=== PATIENT | female | born 1960 | race Hispanic/Latino ===

== ENCOUNTER 2016-10-02 23:10 | Inpatient (IN) | payer MEDICAID ==
[~2016-10-02] VITALS: Ht 162.6 cm; Wt 49.5 kg
[2016-10-02 23:14] VITALS: BP 119/73; PULSE 130; RESP 22; O2SAT 97
--- NOTE | 2016-10-02 23:45 | ED.REPORT ---
HPI-Abd Pain F 40 and Over Date of Service October 02, 2016 ED Provider: Jef Huynh MD 56 year old Divehi-speaking, developmentally delayed female with a history of dementia presents to the ER accompanied by her daughters due to abdominal pain. Daughter reports that the patient complained of abdominal discomfort today, but she reports that the patient has had decreased appetite over the past 4 days. She denies fever, dysuria, nausea, and vomiting. It is difficult to obtain any history from the patient due to underlying developmental delay and dementia. Nursing Notes Stated Complaint: RIGHT SIDE ABD PAIN Chief Complaint: Female Abdominal Pain Nursing Notes Reviewed: Yes Allergies: Coded Allergies: No Known Allergies (Unverified , 10/02/16) No Active Prescriptions or Reported Meds General Time Seen by MD: 23:44 Chief Complaint Abdominal pain Hx Obtained From: Daughter Arrived By: Walk-in Sudden in Onset?: No Onset Occurred: 9 - 12 hours ago Symptom Duration: Since onset Past Medical History Past Medical History Developmental delay Dementia Smoking History Unknown if Ever Smoker Social History Other Social History: Good social support Review of Systems Unable to Obtain ROS Mental status Physical Exam Vital Signs Vital Signs (First) Date Time Temp Pulse Resp B/P Pulse Ox O2 Delivery O2 Flow Rate FiO2 10/02/16 23:14 38.8 130 22 119/73 97 Room Air Initial VS: Reviewed Head / Eyes: Atraumatic, Normocephalic Neck: Supple, Non-tender, Full range of motion Extremities: Vascular intact, Neuro intact, No swelling, No tenderness Skin: Warm, Dry, No cyanosis General/Constitutional: Awake, Alert Appearance / Presentation: Positive: Hygiene poor Respiratory / Chest: Breath sounds NL, Breath sounds = bilat, No respiratory distress, No rales, No rhonchi, No wheezing, No stridor Cardiovascular: Heart rate NL, Regular rhythm, Heart sounds NL, Peripheral circulation NL Abdomen: Soft, No guarding, No rebound, No distention Tenderness/Guarding/Rebound: Positive: Tender diffuse Back: Inspection NL, Non-tender, No CVA tenderness ENT: Airway patent Mouth: Positive: Mucous membranes dry Poor oral hygiene. Interpretation & Diagnostics Lab Results Interpretation Result Diagram: 10/03/16 0447 10/02/16 0010 Test 10/02/16 00:10 10/03/16 00:10 10/03/16 01:50 Prothrombin Time 11.8sec (8.1-12.5) Prothromb Time International Ratio 1.10ratio Lactic Acid Level 1.5mmol/L (0.4-2.0) Magnesium Level 2.0mg/dL (1.6-2.6) Lipase 40U/L (13-60) Activated Partial Thromboplast Time 30.8sec (22.8-33.0) Iron Level 8ug/dL (35-150) Total Iron Binding Capacity ug/dL (250-450) Percent Iron Saturation 32%sat (15-50) Unsaturated Iron Binding < 16.8ug/dL Urine Color Yellow (YELLOW) Urine Appearance Clear (CLEAR,HAZY) Urine pH 7.0 (5.0-8.0) Urine Specific [place] 1.028 (1.003-1.035) Urine Protein Negativemg/dL (NEG,TRACE) Urine Glucose (UA) Negativemg/dL (NEGATIVE) Urine Ketones Negativemg/dL (NEGATIVE) Urine Occult Blood Moderate (NEGATIVE) Urine Nitrite Negative (NEGATIVE) Urine Bilirubin Negative (NEGATIVE) Urine Urobilinogen 2.0mg/dL (NORMAL) Urine Leukocyte Esterase Negative (NEGATIVE) Urine RBC 11-50/hpf (0-2) Urine WBC 0-5/hpf (0-5) Urine Epithelial Cells Moderate/hpf (NONE-MOD) Urine Crystals None seen (NONE SEEN) Urine Bacteria Few/hpf (NONE-FEW) Urine Hyaline Casts None/lpf (NONE) Urine Granular Casts None seen (NONE SEEN) Urine Waxy Casts None seen (NONE SEEN) Urine Red Blood Cell Casts None seen (NONE SEEN) Urine White Blood Cell Casts None seen (NONE SEEN) Urine Mucus None seen (None Seen) Urine Trichomonas None seen (NONE SEEN) Urine Yeast None (NONE SEEN) Urinalysis Comment None Urine Culture Reflexed Not indicated X-Ray Chest Interpretation Chest Xray Interpretation: Atelectasis versus pneumonia at the right lung base. View: Portable, 1 view Interpretation / Wet Read by: Wet read ED physician CT Abd / Pelvis Interpretation CONCLUSION: Large, heterogeneous liver mass that extends to the capsule. Crescentic shaped fluid and air collection in the subhepatic space along the right lateral abdominal wall may reflect a ruptured intrahepatic mass or abscess; cannot entirely exclude abscess from tip appendicitis, though this is felt less likely. Distended urinary bladder with pelvocaliectasis bilaterally. Severe fecal loading of the colon. Possible right lower lobe pneumonia. Electronically signed by Paris Thurman MD Study type: Abdominal CT IV contrast Interpretation / Wet Read by: Interpret - Radiologist Re-Eval/Medical Decision Med Decision/Clinical Course 56-year-old with lifelong developmental delay, presents with decreased appetite and right quadrant and right flank pain. CT reveals a large complex cystic mass which may be abscess ruptured out into the peritoneum, and maybe tumor likewise ruptured. The inferior most area of fluid collection cannot be from the tip of the retrocecal appendix, which does have a appendicolith. It is less likely but not impossible that her retrocecal appendicitis resulted in a tracking abscess. She has atelectasis in the right base versus pneumonia. She is markedly tachycardic, moderately dry appearing, with a mild elevation of her white count. Begun with Zosyn and vancomycin, and admitted to the medicine service, with consultation to surgery and interventional radiology planned for tomorrow Source of Hx: Old records Re-Evaluation/Progress : Time of Eval: 03:03 Re-Evaluation/Progress Note: Discussed lab and imaging results and need for admission. Family is amenable to the plan. All other questions addressed. Consultation #1: Consulted With: On-call physician (Radiology) Call Returned at: 01:39 Note: Radiology called to discuss CT results. Consultation #2: Referral / Consult Name: Lurdes Stuart DO Consulted With: Hospitalist Call Returned at: 02:52 Vascular Nurse: Agrees with eval, Agrees with plan, Accepts admit Counseled Regarding: Diagnosis, Lab results, Need for admission Discharge & Departure Primary Impression: Sepsis Additional Impression: Liver abscess Disposition: ADMITTED TO HOSPITAL Discharge Condition All VS Reviewed: Yes Condition: Stable Referrals: NOPCP (PCP) Scribe Attestation Portions of this note were transcribed by Brad Melchor. I, Dr. Huynh, personally performed the history, physical exam and medical decision-making; I reviewed and confirmed the accuracy of the information in the transcribed note. Signed by: Sol Whitley, 10/03/2016 at 04:25 Jef Huynh MD October 02, 2016 23:45 BRAD MELCHOR October 02, 2016 23:50 Few/hpf (NONE-FEW) Urine Hyaline Casts None/lpf (NONE) Urine Granular Casts None seen (NONE SEEN) Urine Waxy Casts None seen (NONE SEEN) Urine Red Blood Cell Casts None seen (NONE SEEN) Urine White Blood Cell Casts None seen (NONE SEEN) Urine Mucus None seen (None Seen) Urine Trichomonas None seen (NONE SEEN) Urine Yeast None (NONE SEEN) Urinalysis Comment None Urine Culture Reflexed Not indicated X-Ray Chest Interpretation Chest Xray Interpretation: Atelectasis versus pneumonia at the right lung base. View: Portable, 1 view Interpretation / Wet Read by: Wet read ED physician CT Abd / Pelvis Interpretation CONCLUSION: Large, heterogeneous liver mass that extends to the capsule. Crescentic shaped fluid and air collection in the subhepatic space along the right lateral abdominal wall may reflect a ruptured intrahepatic mass or abscess; cannot entirely exclude abscess from tip appendicitis, though this is felt less likely. Distended urinary bladder with pelvocaliectasis bilaterally. Severe fecal loading of the colon. Possible right lower lobe pneumonia. Electronically signed by Paris Thurman MD Study type: Abdominal CT IV contrast Interpretation / Wet Read by: Interpret - Radiologist Re-Eval/Medical Decision Source of Hx: Old records Re-Evaluation/Progress : Time of Eval: 03:03 Re-Evaluation/Progress Note: Discussed lab and imaging results and need for admission. Family is amenable to the plan. All other questions addressed. Consultation #1: Consulted With: On-call physician (Radiology) Call Returned at: 01:39 Note: Radiology called to discuss CT results. Consultation #2: Referral / Consult Name: Lurdes Stuart Consulted With: Hospitalist Call Returned at: 02:52 Vascular Nurse: Agrees with eval, Agrees with plan, Accepts admit Counseled Regarding: Diagnosis, Lab results, Need for admission Discharge & Departure Primary Impression: Sepsis Additional Impression: Liver abscess Disposition: ADMITTED TO HOSPITAL Discharge Condition All VS Reviewed: Yes Condition: Stable Referrals: NOPCP (PCP) Jiibtia Attestation Portions of this note were transcribed by Brad Melchor. I, Dr. Huynh, personally performed the history, physical exam and medical decision-making; I reviewed and confirmed the accuracy of the information in the transcribed note. Signed by: Sol Whitley, 10/03/2016 at 04:25 Jef Huynh MD October 02, 2016 23:45 BRAD MELCHOR October 02, 2016 23:50
[2016-10-02] MEDS ORDERED: 0.9% Sodium Chloride 1,000 ML IV ONE (23:49)
[2016-10-02] MEDS ORDERED: Pantoprazole 4 mg/mL 10 mL Inj IVPUSH ONE (23:50)
[2016-10-02] MEDS ORDERED: Ketorolac 15 mg/mL Inj IVPUSH ONE (23:50)
[2016-10-02] MEDS ORDERED: Ondansetron 2 mg/mL 2 mL Inj IVPUSH ONE (23:50)
[2016-10-03] VITALS (10 sets, daily range): BP systolic 100–116; BP diastolic 65–73; PULSE 100–116; RESP 19–31; O2SAT 93–98
[2016-10-03 00:25] LABS: BASOPHILS % (AUTO) 0.3 % (0-3); EOSINOPHILS % (AUTO) 0.2 % (0-5); MONOCYTES % (AUTO) 7.8 % (4-12); Mean Corpuscular Volume 78.7 fL (81-100); NEUTROPHILS % (AUTO) 77.1 % (40-74)
[2016-10-03] MEDS: fentaNYL-PF 50 mCg/mL 2 mL Inj IVPUSH PRN ×2 (00:28→22:51)
[2016-10-03 00:41] LABS: Platelet Count 397 bil/L (150-400)
[2016-10-03 00:53] LABS: INR 1.1 ratio
[2016-10-03] MEDS ORDERED: 0.9% Sodium Chloride 1,000 ML IV ONE (01:00)
[2016-10-03 02:15] LABS: APPEARANCE,URINE CLEAR (CLEAR,HAZY); COLOR,URINE YELLOW (YELLOW); OCCULT BLOOD,URINE MODERATE (NEGATIVE)
[2016-10-03] MEDS ORDERED: Piperacillin-Tazo 3.375 Gm Inj 3.375 GM in Dextrose 5% Minibag Plus 50 ML IV ONE (02:55)
[2016-10-03] MEDS ORDERED: Vancomycin Inj 1,000 MG in IV Premix 1 EACH IV ONE (02:55)
[2016-10-03] MEDS ORDERED: 0.9% Sodium Chloride 1,000 ML IV SCH (03:21)
[2016-10-03] MEDS ORDERED: Polyethylene Glycol (PEG) 17 Gm Powder PO PRN (03:25)
[2016-10-03] MEDS ORDERED: Alum-Mag Hydrox-Simeth 30 mL Suspension PO PRN (03:25)
--- NOTE | 2016-10-03 03:40 | PCM.HPMED ---
Subjective Date of Service October 03, 2016 Primary Provider: Admitting Physician: Lurdes Stuart DO Primary Care Physician: Sergio Attending Physician: Lurdes Stuart DO Admit Status: From the Emergency Department Chief Complaint: Abdominal pain History of Present Illness: Tiny Hill is a 56 year old developmentally delayed woman with early onset dementia who is minimally verbal in Irish who presents with a 4 day history of increasing abdominal pain and anorexia. The history is obtained from family members in the room who are her primary care givers. The relate that 4 days ago the patient began to manifest decreased appetite and fatigue with complaints of mild abdominal pain. Other members of the family had been suffering from a diarrheal illness so her family did not seek evaluation until today when the patient complained of acutely worsening abdominal pain. The patient denies nausea, changes in bowel or bladder habits, or vomiting. She endorses diffuse abdominal pain most acute in the RUQ and suprapubic region. In the ED the patient was febrile upon presentation with a temp of 38.8, leukocytosis at 14.8 with neutrophil predominance, with mildly elevated ALT and Alk Phos. CT imaging revealed a hypodense region in the right inferior hepatic lobe consistent with either abscess, drained abscess, or malignancy, also noted was a grossly distended bladder; the patient was placed on Vanco and Zosyn given IVF and a Sharma cath was placed. Review of Systems: Comprehensive ROS negative except as outlined above in the HPI Allergies Coded Allergies: No Known Allergies (Unverified , 10/02/16) Home Medications None PMH Developmental Delay Dementia Surgical History None Family History DM2 and HTN is multiple relatives Social History Hx Alcohol Use: No Hx Substance Use: No Smoking Status: Unknown if Ever Smoker Exam Vital Signs Vital Sign - Last Date Time Temp Pulse Resp B/P Pulse Ox O2 Delivery O2 Flow Rate FiO2 10/02/16 23:14 38.8 130 22 119/73 97 Room Air Intake and Output 10/02/16 10/02/16 10/03/16 Cumulative From/Thru 15:00 23:00 07:00 10/02/16 23:14 - 10/03/16 01:41 Intake Total 2000 ml 2000 ml Balance 2000 ml 2000 ml Intake IV Total 2000 ml 2000 ml Exam Gen: difficult to asses A/O as patient is essentially non verbal, slightly disheveled female appearing older than stated age Neck: Supple, no JVD, full ROM HEENT: mucous membranes dry, PERRL, EOMI, no scleral icterus, no conjunctival pallor CV: RRR, no murmurs rubs or gallops Resp: Lung CTA BL, no wheezing rales or rhonchi Abd: Diffusely tender to palpation most acutely in RUQ and supra-pubic region, BS+ 4Q, no organomegaly, no rebound masses or guarding Extr: No cyanosis clubbing or edema Neuro: CN 2-12 grossly intact, no focal neurologic deficit Psych: Patient very stoic with minimal visible pain reaction, minimally verbal with single word difficult to comprehend utterances to family Lab and Diagnostics Labs Item Value Date Time Red Blood Count 2.96 mil/mm3 L 10/02/169 Neutrophils (%) (Auto) 77.1 % H 10/02/169 Monocytes (%) (Auto) 7.8 % 10/02/169 Lymphocytes (%) (Auto) 13.9 % L 10/02/169 Eosinophils (%) (Auto) 0.2 % 10/02/169 Basophils (%) (Auto) 0.3 % 10/02/169 Estimat Glomerular Filtration Rate 297 mL/min 10/02/169 Lactic Acid Level 1.5 mmol/L 10/02/169 Calcium Level 8.3 mg/dL L 10/02/169 Magnesium Level 2.0 mg/dL 10/02/169 Total Bilirubin 0.3 mg/dL 10/02/169 Aspartate Amino Transf (AST/SGOT) 46 U/L 10/02/169 Alanine Aminotransferase (ALT/SGPT) 36 U/L H 10/02/169 Alkaline Phosphatase 250 U/L H 10/02/169 Total Protein 8.1 g/dL 10/02/169 Albumin 2.7 g/dL L 10/02/169 Lipase 40 U/L 10/02/169 Prothrombin Time 11.8 sec 10/02/169 Prothromb Time International Ratio 1.10 ratio 10/02/169 Activated Partial Thromboplast Time 30.8 sec 10/03/169 Result Diagram: 10/02/16910/02/169 Microbiology Blood cultures pending X-Rays, CTs and MRIs CT abdomen Pelvis: Official report pending [place] Read: Large Heterogeneous liver mass that extends to the capsule. Crescentic shaped fluid and air collection in the subhepatic space along the right lateral abdominal wall may reflect ruptured intrahepatic mass or abscess; cannot entirely exclude abscess from tip appendicitis, though this is felt less likely. Distended urinary bladder with pelvocaliectasis bilaterally. Severe fecal loading of the colon. Possible right lower lobe pneumonia. Chest Xray portable Personal Read: Patient rotated right, trachea midline, poor inspiratory effort on film, RLL consolidation vs atelectasis, loop of fecal loaded bowel extending under left subdiaphragmatic region. Please correlate clinically Assessment & Plan Tiny Hill is a 56 year old developmentally delayed minimally verbal Irish speaking female who presents with a 4 day history of anorexia with increasing abdominal pain. CT imaging in the ED reveals likely hepatic abscess with concurrent fever, leukocytosis, and Tachycardia. 1. Sepsis, POA, acute. Active -Leukocytosis as 14.8 with neutrophilic predominance, Temperature 38.8 upon presentation with HR 130, Likely source Hepatic abscess and or RLL pneumonia -Vanco per pharmacy and Zosyn 3.375g q8 -NS @ 125/hr -Repeat CBC in the AM 2. Hepatic Mass, POA, acute. Active -Likely abscess -Abx as above -IVF as above -Dilaudid 0.5 mg IV Q4 for pain control -Infectious disease consulted to establish antibiotic regimen and determine if patient would benefit from biopsy and surgical drainage of suspected abscess 3. Developmental Delay, POA, chronic. Active -Patient minimally verbal in Irish -Consent should be obtained from family for all necessary procedures(phone number posted on board) -Patient is very stoic and minimally verbal so PRN pain meds should be offered Q4 4. Microcytic anemia, POA, chronicity unknown. Active -H/H 7.4/23.3 -Typed and crossed -Consider transfusion for Hg < 7 -Stool Guaiac ordered -Consider GI consult to identify source of possible bleed 5. Hyperglycemia, POA, chronicity unknown. Active -HA1c pending -Lispro low dose correctional scale 6. Large stool burden, POA, chronicity unknown. Active -Bowel prophylaxis with Senna and Miralax -Consider Dulcolax suppository if no BM in 24 hrs Code Status: FULL CODE Disposition: Inpatient, anticipated length of stay >2 midnights due to severity of condition and complexity of treatment plan. Pain Evaluation: Adequate Pain Control GI Prophylaxis: H2 joshua VTE Prophylaxis: Sub-Q Enoxaparin Resuscitation Status: CPR: Attempt Resuscitation Attending Statement The patient was seen and examined together with house staff on 10/03/2016 and I agree with the history, exam and plan as outlined in the note above. Magan Muhammad DO October 03, 2016 03:40 Lurdes Stuart DO October 03, 2016 06:37
--- NOTE | 2016-10-03 04:00 | NUR ---
Pt arrived to room 2023 Accompanied by 2 adult nieces. Pt has lost her mother recently, with whom she lived with and whom took care of her up until she passed. Pt says one or two words at a time and only in Kazakh. Pt is very compliant with staff. Pt is developmentally delayed and has dementia, she also has poor self care.
[2016-10-03] MEDS ORDERED: Glucose 40% Oral Gel 15 Gm Tube PO PRN (04:10)
[2016-10-03] MEDS ORDERED: Dextrose 10% 250 ML IV ONE (04:10)
[2016-10-03] MEDS ORDERED: Vancomycin Dose per Pharmacist XX SCH (04:29)
--- NOTE | 2016-10-03 04:35 | PCM.CONPHA ---
Subjective Date of Service: October 03, 2016 Abdominal pain Reason for Pharmacy Consult: Vancomycin Dosing Objective Vital Signs Date Time Temp Pulse Resp B/P Pulse Ox O2 Delivery O2 Flow Rate FiO2 10/03/16 04:06 37.3 105 31 102/65 95 Room Air 10/03/16 04:00 36.6 108 19 106/73 98 Room Air 10/02/16 23:14 38.8 130 22 119/73 97 Room Air Weight (Kilograms): 52.300 Height (Feet): 5 Height (Inches): 4.00 Test 10/02/16 00:10 10/03/16 00:10 10/03/16 01:50 White Blood Count 14.8th/mm3 (3.8-10.1) Red Blood Count 2.96mil/mm3 (3.90-5.20) Hemoglobin 7.4g/dL (12.0-15.6) Hematocrit 23.3% (35.0-46.0) Mean Corpuscular Volume 78.7fL (81-100) Mean Corpuscular Hemoglobin 25.0pg (27.0-35.0) Mean Corpuscular Hemoglobin Concent 31.8% (32.0-37.0) Red Cell Distribution Width 15.5% (12.3-15.4) Platelet Count 397bil/L (150-400) Neutrophils (%) (Auto) 77.1% (40-74) Lymphocytes (%) (Auto) 13.9% (14-46) Monocytes (%) (Auto) 7.8% (4-12) Eosinophils (%) (Auto) 0.2% (0-5) Basophils (%) (Auto) 0.3% (0-3) Prothrombin Time 11.8sec (8.1-12.5) Prothromb Time International Ratio 1.10ratio Sodium Level 130mEq/L (134-144) Potassium Level 4.0mEq/L (3.5-5.2) Chloride Level 94mEq/L (97-108) Carbon Dioxide Level 20mmol/L (18-29) Blood Urea Nitrogen 8mg/dL (6-24) Creatinine 0.33mg/dL (0.57-1.00) Estimat Glomerular Filtration Rate 297mL/min (>59) Glucose Level 126mg/dL (60-99) Lactic Acid Level 1.5mmol/L (0.4-2.0) Calcium Level 8.3mg/dL (8.5-10.1) Magnesium Level 2.0mg/dL (1.6-2.6) Total Bilirubin 0.3mg/dL (0.0-1.2) Aspartate Amino Transf (AST/SGOT) 46U/L (0-50) Alanine Aminotransferase (ALT/SGPT) 36U/L (0-32) Alkaline Phosphatase 250U/L (25-150) Total Protein 8.1g/dL (6.4-8.4) Albumin 2.7g/dL (3.4-5.0) Lipase 40U/L (13-60) Activated Partial Thromboplast Time 30.8sec (22.8-33.0) Urine Color Yellow (YELLOW) Urine Appearance Clear (CLEAR,HAZY) Urine pH 7.0 (5.0-8.0) Urine Specific [place] 1.028 (1.003-1.035) Urine Protein Negativemg/dL (NEG,TRACE) Urine Glucose (UA) Negativemg/dL (NEGATIVE) Urine Ketones Negativemg/dL (NEGATIVE) Urine Occult Blood Moderate (NEGATIVE) Urine Nitrite Negative (NEGATIVE) Urine Bilirubin Negative (NEGATIVE) Urine Urobilinogen 2.0mg/dL (NORMAL) Urine Leukocyte Esterase Negative (NEGATIVE) Urine RBC 11-50/hpf (0-2) Urine WBC 0-5/hpf (0-5) Urine Epithelial Cells Moderate/hpf (NONE-MOD) Urine Crystals None seen (NONE SEEN) Urine Bacteria Few/hpf (NONE-FEW) Urine Hyaline Casts None/lpf (NONE) Urine Granular Casts None seen (NONE SEEN) Urine Waxy Casts None seen (NONE SEEN) Urine Red Blood Cell Casts None seen (NONE SEEN) Urine White Blood Cell Casts None seen (NONE SEEN) Urine Mucus None seen (None Seen) Urine Trichomonas None seen (NONE SEEN) Urine Yeast None (NONE SEEN) Urinalysis Comment None Urine Culture Reflexed Not indicated Assessment/Plan Assessment/Plan Vancomycin dosing per pharmacy Indication: liver abscess Goal vancomycin trough: 15-20 Pertinent info: - Also being treated with Zosyn - SCr: 0.33 - WBC: 14.8 - Received loading dose of vancomycin 1000 mg in ED. Maintenance dose: vancomycin 750 mg Q6H starting at 0730. Vancomycin trough has been scheduled for 10/03 @1900 prior to 4th dose. Pharmacy to continue to monitor and dose vancomycin daily. Thank you, Susannah Shaw Pharmacist. Susannah Shaw October 03, 2016 04:35
[2016-10-03] MEDS: 0.9% Sodium Chloride 1,000 ML IV SCH ×3 (04:47→20:25)
[2016-10-03 04:52] LABS: Unsaturated Iron Binding < 16.8 ug/dL
[2016-10-03 05:23] LABS: Mean Corpuscular Hemoglobin 24.9 pg (27.0-35.0); Mean Corpuscular Volume 79.6 fL (81-100); Platelet Count 326 bil/L (150-400)
[2016-10-03 05:40] LABS: BASOPHILS % (AUTO) 0.2 % (0-3); EOSINOPHILS % (AUTO) 0.1 % (0-5); MONOCYTES % (AUTO) 10.1 % (4-12); NEUTROPHILS % (AUTO) 75.6 % (40-74)
[2016-10-03] MEDS ORDERED: Vancomycin Inj 750 MG in 0.9% Sodium Chloride 250 ML IV SCH (07:30)
[2016-10-03] MEDS: Insulin LISPRO 300 Unit/3 mL Inj SUBQ SCH ×4 (08:00→21:55)
[2016-10-03] MEDS: Sodium Chloride LOK Flush 10 mL Syringe IVFLUSH SCH ×4 (08:30→16:30)
--- NOTE | 2016-10-03 08:55 | DRSVH ---
PROCEDURE: CT ABDOMEN AND PELVIS WITH CONTRAST ([id number]) INDICATIONS: rt flank and abdo pain TECHNIQUE: After the administration of intravenous contrast, 5 mm thick sections acquired from the diaphragm to the symphysis. 5 mm coronal and sagittal reformats were acquired. For radiation dose reduction, the following was used: automated exposure control, adjustment of mA and/or kV according to patient siz e. COMPARISON: None. FINDINGS: Preliminary report by manager shift radiology Image quality: Excellent. ABDOMEN: Lung bases: Focal area of atelectasis/infiltrate is present in the right lower lobe, nonspecific but suspect for pneumonia. Heart size is normal. Solid organs: Liver and spleen are normal in size. In the posterior right lobe of liver is a large, multiloculated hypodense mass that measures approximately 5.8 x 10.6 cm in diameter and 10 cm in cran iocaudal dimension. There is very slight rim enhancement relative to normal liver. At the inferior ti p of the right lobe there is a subcapsular air-fluid collection that could represent abscess. This me asures approximately 1.2 cm in thickness and 9.7 cm AP. This collection is also adjacent to the fundu s of the gallbladder which otherwise appears normal. This collection also is present at the tip of th e appendix which does contain an appendicolith and measures 9 mm in diameter with surrounding fat str anding, of concern for acute appendicitis with rupture at the tip. Biliary system is non dilated. Pancreas enhances normally. No adrenal nodules. Kidneys demonstrate normal size and enhancement, without hydronephrosis. Peritoneum and bowel: Bowel loops demonstrate normal wall thickness and caliber. Considerable fecal material within the proximal colon. No free fluid or air. Nodes and vessels: No retroperitoneal or mesenteric adenopathy by size criteria. Aorta and inferior vena cava are normal in size. Miscellaneous: No ventral hernias. PELVIS: Genitourinary: Bladder is distended and wall thickness is normal. Uterus appears normal, located to the left of midline. No adnexal abnormalities. No free fluid. Miscellaneous: No inguinal hernias or adenopathy. Bones: No suspicious bony lesions. No vertebral body compression fractures. IMPRESSION: 1. Large intrahepatic, predominantly cystic mass is nonspecific. Primary or metastatic neoplasm canno t be excluded however benign infectious or inflammatory process would appear more likely. Followup no nemergent CT of the abdomen with liver protocol suggested. 2. Probable crescentic abscess in the right upper quadrant inferior to the liver and likely related t o ruptured acute appendicitis. Fluid collection secondary to extension of the liver lesions through t he hepatic capsule is considered but would not explain the air fluid level within the collection. 3. No lymphadenopathy, bowel obstruction or free intraperitoneal air. 4. Focal atelectasis in the right lower lobe may be reactive to underlying inflammatory process or sp linting from pain but possibility of pneumonia/aspiration is not excluded, clinical/laboratory correl ation needed. Findings correlate with the preliminary report although probability of small abscess is felt more lik malini to be secondary to acute appendicitis with rupture. Dictated by: Napoleon Beck M.D. on 10/03/2016 at 8:29 Approved by: Napoleon Beck M.D. on 10/03/2016 at 8:53
[2016-10-03] MEDS: Polyethylene Glycol (PEG) 17 Gm Powder PO SCH (08:59)
--- NOTE | 2016-10-03 09:45 | DRSVH ---
PROCEDURE: X-RAY CHEST ONE VIEW, PORTABLE ([id number]) INDICATIONS: abdo pain TECHNIQUE: One view of the chest was acquired. COMPARISON: [facility], CT, CT ABD PELVIS W CON, 10/03/2016, 1:11. FINDINGS: Surgical changes and devices: None. Lungs and pleura: No pleural effusions or pneumothorax. Elevation the right hemidiaphragm. Airspac e opacity overlies the right lung base likely atelectasis. Liver appears enlarged. Mediastinum: Mediastinal contours appear normal. Heart size is normal. Bones and chest wall: No suspicious bony lesions. Overlying soft tissues appear unremarkable. IMPRESSION: 1. Chronic elevation of the right hemidiaphragm with probable atelectasis overlying the right lung ba se. Dictated by: Denis JUAREZ Interpreted: Gabriel Beck MD on 10/03/2016 at 9:43 Transcribed by: MANOLO on 10/03/2016 at 9:45 Approved by: Napoleon Beck M.D. on 10/03/2016 at 10:50
[2016-10-03] MEDS: Piperacillin-Tazo 3.375 Gm Inj 3.375 GM in Dextrose 5% Minibag Plus 50 ML IV SCH ×2 (10:30→17:59)
--- NOTE | 2016-10-03 11:00 | NUR ---
Social Work: Initial Assessment D: Per EMR review, pt is a 56 year old female admitted for Liver Abscess. Pt is Self Pay insurance. Pt does not have a PCP. NOK is Melodie Marvin, pt's cousin ([phone] and [phone]). Advanced directives not completed- info provided to pt and family. No readmit score entered. [employer] met with pt and cousin at bedside to discuss dcp with the assistance of an per diem interpreter. Sw role explained. Pt is lives in [place] with her Cousin, Melodie, who is her current power press operator. Pt is developmentally disabled and requires supervision and assistance with ADLs. Pt is I with ambulation and uses no DME. Pt was previously cared for by her mother who recently . Pt and family confirm that pt does not have any insurance. [employer] [facility] Application provided by [employer]. Family anticipates taking pt home when medically stable; they express no concerns about discharge. Pt discussed in am rounds. Infectious Disease has been consulted. A: Pt who is developmentally delayed and lives with family who provides care. P: Anticipate pt to discharge home when medically stable; [employer] to continue to follow ADEEL Mcclain
--- NOTE | 2016-10-03 12:11 | NUR ---
HEART RATE P- Patient has HR ST 100-120 and at 0945 has run on 17 beats V-tack per retail maintenance technician. Patient denies chest pain and appears asymptomatic. I- MD made aware, piano mechanic apprentice and family present and family requesting time think on code status. E- Will continue to monitor and check with youth nutritional monitor.
--- NOTE | 2016-10-03 18:19 | PCM.PNMED ---
Subjective Date of Service October 03, 2016 Subjective Reason 56-year-old developmentally delayed woman with early onset dementia, minimally verbal, Gabonese-speaking only, with a four-day history of increasing abdominal pain and anorexia. History obtained from family members who are her caregivers.In the ED the patient was febrile upon presentation with a temp of 38.8, leukocytosis at 14.8 with neutrophil predominance, with mildly elevated ALT and Alk Phos. CT imaging revealed a hypodense region in the right inferior hepatic lobe consistent with either abscess, drained abscess, or malignancy, also noted was a grossly distended bladder. Today the patient does report pain and points to an area in the mid lower abdomen. Exam Vital Signs Vital Sign - Last Date Time Temp Pulse Resp B/P Pulse Ox O2 Delivery O2 Flow Rate FiO2 10/03/16 16:18 37.9 112 24 116/65 96 Room Air Intake and Output 10/02/16 10/02/16 10/03/16 Cumulative From/Thru 15:00 23:00 07:00 10/02/16 23:14 - 10/03/16 04:22 Intake Total 2000 ml 2000 ml Output Total 1200 ml 1200 ml Balance 800 ml 800 ml Intake IV Total 2000 ml 2000 ml Output Urine Total 1200 ml 1200 ml Exam Gen: Patient does not know her own name, but does know she is in the hospital, slightly disheveled female appearing older than stated age Neck: Supple, no JVD, full ROM HEENT: mucous membranes dry, EOMI, no scleral icterus, no conjunctival pallor CV: RRR, no murmurs rubs or gallops Resp: Lung CTA BL, no wheezing rales or rhonchi Abd: Diffusely tender to palpation most acutely in RUQ and supra-pubic region, BS+ 4Q, no organomegaly, no rebound masses or guarding Extr: No cyanosis clubbing or edema Neuro: CN 2-12 grossly intact, no focal neurologic deficit Psych: Patient very stoic with minimal visible pain reaction, minimally verbal with single word difficult to comprehend utterances to family IVs and Medications IV Fluids Normal saline at 125 mils per hour IV Medications Reviewed: Medications were reviewed in detail Lab and Diagnostics Result Diagram: 10/03/16 0447 10/03/16446 Microbiology Blood cultures pending X-Rays, CTs and MRIs CT abdomen Pelvis: Official report pending Night Jak Read: Large Heterogeneous liver mass that extends to the capsule. Crescentic shaped fluid and air collection in the subhepatic space along the right lateral abdominal wall may reflect ruptured intrahepatic mass or abscess; cannot entirely exclude abscess from tip appendicitis, though this is felt less likely. Distended urinary bladder with pelvocaliectasis bilaterally. Severe fecal loading of the colon. Possible right lower lobe pneumonia. Chest Xray portable Personal Read: Patient rotated right, trachea midline, poor inspiratory effort on film, RLL consolidation vs atelectasis, loop of fecal loaded bowel extending under left subdiaphragmatic region. Please correlate clinically Assessment & Plan Tiny Hill is a 56 year old developmentally delayed minimally verbal Gabonese speaking female who presents with a 4 day history of anorexia with increasing abdominal pain. CT imaging in the ED reveals likely hepatic abscess with concurrent fever, leukocytosis, and Tachycardia. 1. Sepsis, POA, acute. Active -Leukocytosis as 14.8 with neutrophilic predominance, Temperature 38.8 upon presentation with HR 130, Likely source Hepatic abscess and or RLL pneumonia -Vanco per pharmacy and Zosyn 3.375g q8 -NS @ 125/hr -Repeat CBC in the AM reveals improvement but still elevated white blood cells 12.4 -Temperature within normal limits all day, rising to 37.9 in the late afternoon 2. Hepatic Mass, POA, acute. Active -Likely abscess -Abx as above -IVF as above -Dilaudid 0.5 mg IV Q4 for pain control -Infectious disease consulted to establish antibiotic regimen and determine if patient would benefit from biopsy and surgical drainage of suspected abscess 3. Developmental Delay, POA, chronic. Active -Patient minimally verbal in Gabonese -Consent should be obtained from family for all necessary procedures(phone number posted on board) -Patient is very stoic and minimally verbal so PRN pain meds will be offered Q4 4. Microcytic anemia, POA, chronicity unknown. Active -Likely anemia of chronic disease with high ferritin and low iron stores. It is possible that this liver infection has been following a long indolent course -H/H 7.4/23.3 -Repeat evening H/H pending -Typed and crossed -Consider transfusion for Hg < 7 -Stool Guaiac ordered -Consider GI consult to identify source of possible bleed 5. Hyperglycemia, POA, chronicity unknown. Active -HA1c pending -Lispro low dose correctional scale 6. Large stool burden, POA, chronicity unknown. Active -Bowel prophylaxis with Senna and Miralax -Consider Dulcolax suppository if no BM in 24 hrs Code Status: FULL CODE, but after discussion with cousins who are caregivers describing the options they are going to have a conversation with Tiny and tell us tomorrow if they are going to change that CODE STATUS. Tiny voiced wanting to be allowed to pass naturally. Disposition: Inpatient, anticipated length of stay >2 midnights due to severity of condition and complexity of treatment plan. Pain Evaluation: Adequate Pain Control GI Prophylaxis: H2 joshua VTE Prophylaxis: Sub-Q Enoxaparin VTE Mechanical Devices: Venous Foot Pump Resuscitation Status: CPR: Attempt Resuscitation Attending Statement The patient was seen and examined together with Resident/House-staff on 10/03/16 and I agree with the history, exam and plan as outlined in the note above. Kolton Guillen DO October 03, 2016 18:19 Kevin Khan October 17, 2016 17:25
[2016-10-03] MEDS: Ondansetron 2 mg/mL 2 mL Inj IVPUSH PRN ×2 (18:41→22:51)
[2016-10-03] MEDS ORDERED: Vancomycin Serum Trough XX ONE (19:00)
--- NOTE | 2016-10-03 20:36 | CONS ---
[address] [address] CONSULTATION REPORT PATIENT: PAT ZHU : 1960 MR#: [id number] ADMIT: 10/03/2016 JOB ID: [id number] DATE OF SERVICE: 10/03/[address] Muhammad for this timely consult. REASON FOR CONSULTATION: Possible liver abscess, ruptured appendicitis or other right-sided abdominal infectious process. HISTORY OF PRESENT ILLNESS: The patient is a 56-year-old, developmentally delayed Hungarian borne woman who resides with family in the local area. She apparently has started to develop a decrease from her already abnormal baseline cognitive function and is thought to have early dementia. Her mother, her primary caregiver all these years, recently , and she is now cared for by a network of friends and relatives. She was admitted to the hospital in the manufacturers service representative hours today complaining of abdominal pain, loss of appetite and fatigue. This history was related to the ED staff by family members. It was noted in the ED that she had a fever to 38.8 and white count which was elevated with left shift as well as some elevated LFTs. CT scan to be discussed later showed many abnormalities and she was admitted and started on broad-spectrum antibiotics. For her part, the patient is a very limited historian. She know she is in a hospital but has no idea what city it is in. She has absolutely no idea about the year and when pressed about any current events or other general knowledge, she says "I know nothing" through the teaseler. She tells me that a couple of weeks ago she was quite ambulatory and fell, striking the chair. This history is from an earlier visit her and the patient actually has no idea when she fell and hit the chair, but it was apparently some weeks ago. She struck the right side of her chest or flank with the chair apparently but was not taken for medical attention. In any event, thereafter she started to develop some progressive right-sided abdominal pain. The patient states her appetite has been reduced but she has not had nausea or vomiting, and she has been able to take in food relatively well including breakfast this morning right after she was admitted which was witnessed by the nurses. She denies any diarrhea, constipation, or urinary symptoms. The patient, for her part, says she has no fever, chills or sweats. She does state she has some headache but not now. She denies sore throat, though she says she has had in the past. The patient also states that normally she can walk fairly well. Beyond this, we really do not know much as the patient has developmental delay and early dementia limit her ability to give anything approaching a complete history. PAST MEDICAL HISTORY: Notable for developmental delay and early dementia. SOCIAL HISTORY: The patient is a nonsmoker, nondrinker who was basically cared for by her mother until recently when her mother reportedly . Since then, she has been cared for by a cousin. She was born in [place], though she cannot say where, but [place] She moved to the [place] and she cannot say when. She has gone back to [place] to visit, but she is not sure when that occurred either. Recently, she has been living in [facility]. FAMILY HISTORY: Completely unknown though notes in the chart say unknown to the patient though there are notes about diabetes in the family. The patient has no idea what tuberculosis is, and I was unable to ask her any pertinent family history questions. REVIEW OF SYSTEMS: Likewise limited by her limited interaction abilities, but the patient does say she has had headaches and sore throat in the past but not currently. She denies fevers, chills, or sweats. She denies stiff neck. She denies cough or shortness of breath. She denies vomiting or diarrhea but says she has had some reduced appetite. She does say she has had considerable abdominal pain which has been getting worse ever since she fell and struck herself on the chair. No dysuria, urgency, or frequency. She said she has no trouble walking or no trouble with her joints. Remainder of the review of systems was either negative or unobtainable given her neurologic issues. PHYSICAL EXAMINATION: Reveals a thin, woman lying supine in her bed. She speaks only in Lithuanian and gives very short answers to questions phrased by me or the trauma counsellor. Her head is without trauma. Eyes without conjunctivitis. There is no temporal wasting. The nose is normal. The oral cavity without thrush or hairy leukoplakia. The teeth are in fair repair. There is no gingivitis the neck is supple. No adenopathy is noted. Lungs are quite clear. Cardiac tones: Regular rate and rhythm. The abdomen is notable for diminished bowel tones and some distention. I can palpate a liver edge or some other process perhaps extending 3-4 cm below the right costal margin. There is also a sense of fullness in the epigastrium. The patient appears to have something with deep palpation but not light palpation of the abdomen especially on the right. There is no rebound or significant guarding. The suprapubic area is benign there is no inguinal adenopathy. A Sharma catheter is present. The extremities are without edema, cellulitis or diminished pulses. Good capillary refill is noted, and the patient can move all four extremities. Beyond that, the neurologic exam was quite limited. LABORATORIES: Include white count 14,000 at midnight when she was admitted and now 12,000 at 5 a.m. Hematocrit is 23, we do not have any prior values. Platelet count 326, very mild left shift in the white count. Creatinine less than 0.3. Ferritin is 289, alk phos is 200, albumin 2.1. ALT and AST both in the 20s and quite normal. Urinalysis with 11-50 white cells. Micro studies include two blood cultures that are pending from the manufacturers service representative hours today. A MRSA screen of the nares is negative. IMAGING PROCEDURE: Chest x-ray shows elevated right hemidiaphragm with probable atelectasis. A CT scan of the abdomen is quite abnormal and I reviewed it on the screen. It shows a large cystic mass within the liver. Whether this is a cyst, malignancy or infection is not clear, but the radiologist thought inflammatory mass was more likely. Also noted was a crescentic apparent abscess in the right upper quadrant inferior to the liver and possibly related to ruptured appendix. The radiologist also noted this abscess or fluid collection appears really close to or perhaps in connection with the tip of the appendix, which has some surrounding fat stranding. Some atelectasis in the right lower lobe is noted. IMPRESSION: This is a complex case given the lack of history we have. The patient reports some trauma that she thinks started all these symptoms, but that is unclear to me as there is not any real evidence on the right chest wall of any trauma or flank wall. It would appear to me looking at the CT scans that the most likely explanation here would be a ruptured appendix with formation of an abscess below the liver, but this is not a completely satisfying explanation as we are still left with this very large abnormality within the liver which could represent, I suppose, an abscess. The patient does not appear toxic in any way. She did have a bit of a fever when she came in, though she is now afebrile with temperature 37.9. Her white count was minimally elevated and it has already started to come down some, and she is hemodynamically quite stable and, in fact, was eating breakfast earlier in the day. At this point, I would continue with Zosyn and drop the vancomycin she is receiving as there is no reason to suspect MRSA in any of this. I would also strongly consider consulting General Surgery and probably Interventional Radiology both to see if they think a surgical procedure would be indicated to remove the appendix or to place a drain in the abscess or both. RECOMMENDATIONS: 1. DC Vanco. 2. Continue Zosyn. 3. Would consult Interventional Radiology to see if they could aspirate some portion of the abnormality we see on the CT scan for possible culture and diagnostic purposes. 4. I would consult general surgery to see if they think the appendix is the root of this problem and, if so, if resection is indicated. 5. An ultrasound of the right upper quadrant might prove interesting as well.
--- NOTE | 2016-10-03 21:59 | DRSVH ---
PROCEDURE: US ABDOMEN, LIMITED ([id number]) INDICATIONS: 56 year-old female with posterior right hepatic lobe lesion on recent CT scan. TECHNIQUE: Real-time focused scanning was performed of the abdomen, with image documentation. COMPARISON: [facility], CT, CT ABD PELVIS W CON, 10/03/2016, 1:11. FINDINGS: Liver is normal in overall size and background echotexture. Within the posterior right hepa tic lobe, CT finding corresponds with a heterogeneous hypoechoic lesion that measures 11.7 x 9.2 x 4. 6 cm, demonstrating no internal vascular flow on color Doppler interrogation. No intrahepatic biliary ductal dilation. The gallbladder is contracted at the time of scan. IMPRESSION: CT finding corresponds with 11.7 x 9.2 x 4.6 cm mass lesion in the posterior right hepati c lobe. Given the lack of internal vascularity, finding would be consistent with liver abscess in the appropriate clinical setting. Large necrotic neoplasm would also be considered in the differential d iagnosis. Dictated by: Eugene Brown M.D. on 10/03/2016 at 21:52 Approved by: Eugene Brown M.D. on 10/03/2016 at 21:58
[2016-10-04] VITALS (8 sets, daily range): BP systolic 94–117; BP diastolic 57–74; PULSE 100–117; RESP 15–32; O2SAT 96–100
[2016-10-04] MEDS: Piperacillin-Tazo 3.375 Gm Inj 3.375 GM in Dextrose 5% Minibag Plus 50 ML IV SCH ×4 (00:06→21:28)
[2016-10-04] MEDS: Sodium Chloride LOK Flush 10 mL Syringe IVFLUSH SCH ×8 (00:30→22:54)
[2016-10-04] MEDS: 0.9% Sodium Chloride 1,000 ML IV SCH ×4 (04:10→23:44)
[2016-10-04 04:34] LABS: BASOPHILS % (AUTO) 0.3 % (0-3); EOSINOPHILS % (AUTO) 1.4 % (0-5); MONOCYTES % (AUTO) 10.6 % (4-12); Mean Corpuscular Hemoglobin 24.6 pg (27.0-35.0); Mean Corpuscular Volume 79.5 fL (81-100); NEUTROPHILS % (AUTO) 70.8 % (40-74); Platelet Count 364 bil/L (150-400)
--- NOTE | 2016-10-04 05:31 | NUR ---
nausea/pain pt vomiting about 50cc dark brown very foul smelling. with methods time analyst pt denies any nausea c/o increased pain in her right side. pt states she ate something bad, pt hasn't had a BM in a few days and according to the CT scan she has quite a bit of stool. gave pt 8mg IV zofran and 25mcg IV fentanyl, and cleaned her up. pt has denied any nausea and no more vomiting noted. pt with intermittent pain she is passive about it. pt is Nigerien speaking, DD with dementia at times it can be difficult to obtain an accurate account of how she is feeling.
[2016-10-04] MEDS: Insulin LISPRO 300 Unit/3 mL Inj SUBQ SCH ×4 (08:00→21:48)
--- NOTE | 2016-10-04 08:47 | NUR ---
Pain/Nausea Pt states pain 8 with rest, no nausea at this time, breakfast delivered. MDs notified. Dilaudid 0.5 mg IV given. Care continues.
[2016-10-04] MEDS: HYDROmorphone 0.5 mg/0.5 mL iSecure Syringe IVPUSH PRN ×3 (09:03→22:00)
[2016-10-04] MEDS: Polyethylene Glycol (PEG) 17 Gm Powder PO SCH (09:04)
--- NOTE | 2016-10-04 09:05 | NUR ---
Pain/nausea/Lens Inspector Per crozer operator: Pt stated 8/10 RUQ with rest . Denies nausea and vomiting at this time. Administering 0.5 mg Dilaudid. Breakfast in room. Family at bedside. Lens Inspector asking that all MDs call crozer operator for translation. Care continues.
--- NOTE | 2016-10-04 11:46 | PROG NOTE ---
[address] [address] PROGRESS NOTE PATIENT: PAT ZHU : 1960 MR#: [id number] ADMIT: 10/03/2016 JOB ID: [id number] DATE: 10/04/2016 INFECTIOUS DISEASE FOLLOW UP NOTE: REASON FOR FOLLOWUP: Probable large liver abscess. INTERVAL HISTORY: Recall this is the 56-year-old woman with developmental delay who was admitted because of abdominal pain and was found to have what appears to be a large liver abscess possibly arising from a ruptured appendix. Her workup has really just now been started. Today she complains of persistent abdominal pain along with copious vomiting. She denies any fevers, chills, shortness of breath or additional new complaints. In speaking to the patient's relatives who are with her in the room, we have a moran picture of her mental handicaps. The patient apparently was brought from [place] by a cousin after her mother who had been her college or university department head had some time ago. Unfortunately the cousin who had been caring for her here in the [facility] also recently and now she is under the care of yet another cousin. The cousin who she is currently living with told us an interesting story about this patient. Apparently both she and both of her siblings were always very mentally slow and were unable really to function in school or society. They have since declined and apparently her two siblings are now even more impaired mentally than she is. Additionally there are other people in the family that are afflicted including two out of three of this patient's children who are also extremely developmentally delayed. The family seems to have no insight into what the nature of this familial profound mental impairment represents. PHYSICAL EXAMINATION: Reveals an afebrile woman. Temperature 37.2, pulse 100, respiratory rate 16, blood pressure 104/61. She is saturating well on room air. She is vomiting and obviously in distress from that. She is awake and alert and able to give some history, but as was noted yesterday with yesterday's ct mri technologist, the patient has profound knowledge and orientation gaps. She has no oral lesions. Her lungs are relatively clear. Cardiac tones without murmur. The abdomen is full, especially on the right side. Her BMI is 20. White blood count today 11,000 down from 15,000 on admission. Platelet count 364. Creatinine is undetectable. ALT, AST normal. Alk phos 241. Urinalysis without white cells. Blood culture is negative. MRSA screen negative. The ultrasound that I ordered yesterday after I had originally seen the patient shows a 12 x 10 x 5 cm posterior right liver abnormality which is consistent with abscess or necrotic neoplasm. This goes along with a CT scan which found a very similar sort of an abnormality. IMPRESSION: This patient likely had suffered a ruptured appendix which lead to the development of a giant liver abscess. This needs to be addressed either with open surgical drainage or perhaps with interventional radiology drainage if we are to affect a good outcome. Antibiotics will be part of this process but by no means be a definitive part of her care. I personally reviewed the images of the CAT scan on the computer and these are indeed extraordinary images with respect to the size of this apparent abscess. RECOMMENDATIONS: 1. Will continue with our current antibiotic which is Zosyn alone. 2. Surgery should be consulted to see whether an open drainage is indicated or possible. 3. If General Surgery cannot affect drainage of this or thinks Interventional Radiology would be superior, then we should move to an IR drainage procedure. 4. Will check an amebic antibody titer. 5. Will continue with Zosyn as our sole antibiotic unless, of course, we prove this is an amebic abscess in which case we would need to add metronidazole.
--- NOTE | 2016-10-04 11:47 | NUR ---
Vomiting Pt vomited 950 mL, 45 minutes after giving dose of Dilaudid. Care continues.
[2016-10-04] MEDS: Ondansetron 2 mg/mL 2 mL Inj IVPUSH PRN (13:38)
[2016-10-04] MEDS ORDERED: fentaNYL-PF 50 mCg/mL 2 mL Inj ONE (13:43)
[2016-10-04] MEDS ORDERED: HYDROmorphone 2 mg/mL Inj ONE (13:43)
[2016-10-04] MEDS ORDERED: Glycopyrrolate 0.2 MG/ML 1mL Inj ONE (13:43)
[2016-10-04] MEDS ORDERED: Rocuronium 10 mg/mL 5 mL Inj ONE (13:43)
[2016-10-04] MEDS ORDERED: Neostigmine 1 mg/mL 10 mL Inj ONE (13:43)
[2016-10-04] MEDS ORDERED: Propofol 10,000 mCg/mL 20 mL Inj ONE (13:43)
[2016-10-04] MEDS ORDERED: Phenylephrine/NS-PF 100 mCg/mL 5 mL Syringe IVPUSH ONE (13:43)
--- NOTE | 2016-10-04 16:50 | NUR ---
Fleet enema Administered fleet enema at approximately 1600, pt had x large loose BM at 1430, guaiac sent. Care continues.
[2016-10-04] MEDS ORDERED: Lactated Ringer's 1,000 ML IV ONE ×2 (19:38→19:51)
[2016-10-04] MEDS ORDERED: Bupivacaine-MPF 0.5% W/EPI 30 mL Inj INFILTRATE ONE (19:38)
[2016-10-04] MEDS ORDERED: EPHEDrine Sulfate 50 mg/mL Inj IVPUSH PRN (19:45)
[2016-10-04] MEDS ORDERED: Lactated Ringer's 500 ML IV PRN (19:45)
[2016-10-04] MEDS ORDERED: Phenylephrine 10,000 mCg/mL Inj IVPUSH PRN (19:45)
[2016-10-04] MEDS ORDERED: Labetalol 5 mg/mL 4 mL Inj IV PRN (19:45)
[2016-10-04] MEDS ORDERED: MetoCLOpramide 5 mg/mL 2 mL Inj IVPUSH PRN (19:45)
[2016-10-04] MEDS ORDERED: Ondansetron 2 mg/mL 2 mL Inj IVPUSH PRN (19:45)
[2016-10-04] MEDS ORDERED: fentaNYL-PF 50 mCg/mL 2 mL Inj IVPUSH PRN (19:45)
[2016-10-04] MEDS ORDERED: Atropine 0.4 mg/mL Inj IVPUSH PRN (19:45)
[2016-10-04] MEDS ORDERED: HYDROmorphone 1 mg/mL Inj IVPUSH PRN (19:45)
[2016-10-04] MEDS ORDERED: Lactated Ringer's 1,000 ML IV SCH (19:45)
--- NOTE | 2016-10-04 19:48 | PCM.HPANE ---
Patient Data Date of Service: October 04, 2016 Surgeon Admitting Provider:Lurdes Stuart DO Attending Provider:Lurdes Stuart DO Primary Care Physician:Sergio Other Provider:Anabella Pierre Anesthesia Reason for Visit Liver Abscess Ht/WT & BMI Height (Feet): 5 Height (Inches): 4.00 Weight (Kilograms): 53.500 Body Mass Index 19.68 Allergies Coded Allergies: No Known Allergies (Unverified , 10/02/16) Past Anesthesia History Anesthesia History: Denies:: Anesthesia Reactions Diabetes History Hx Diabetes?: No Current Bedside Blood Glucose: 131 Medications Hypertension Medication: No Home Meds Incl Beta Bianca: No No Active Prescriptions or Reported Meds History History of ENT Problems?: No HEENT History: Denies:: Abnormal Airway Denture Type: None Teeth Condition: Tooth Decay Hx of Heart Problems?: No Cardiovascular History: Denies:: Congestive Heart Failure Hypertension Hx of Respiratory Problem?: No Respiratory History: Denies:: Tuberculosis Hx Neurologic Problems?: Yes Neurological History: Positive for:: Dementia Other Neurological Pertinent: developmentally delayed Hx of GI Problems?: No Hx of Problems?: No Hx Musculoskeletal Problems?: No Hx Surgeries?: No History Blood Transfusions: Denies:: Blood Transfuse Reaction Blood Transfusions Hx Diabetes: NoBedside Blood Glucose: 131 Hx Alcohol Use: NoHx Substance Use: No Smoking Status: Unknown if Ever Smoker Stop/Bang Treated for Sleep Apnea?: No Do You Have a CPAP Machine?: No S-Snoring: Do You Snore Loudly: No T-Tired: feel tired, fatigued: No O-Obsered: Observed not breath: No P-Blood Pressure: treated: No B- Body Mass Index > 35 kg/m2: No A- Age over 50: Yes N- Neck Large Circumference: No G- Gender Male: No JOCELIN Total Score: 0 Risk Assessment Category Category 1A: Patient has history of documented sleep apnea, and HAS NOT received any narcotic, sedative or anesthesia administration during this stay. Category 1B: Patient has history of documented sleep apnea, and HAS received any narcotic , sedative or anesthesia administration during this stay Category 2: Patient has SUSPECTED Obstructive Sleep Apnea, and HAS received any narcotic , sedative or anesthesia administration during this stay. Category 3: Patient has SUSPECTED Obstructive Sleep Apnea and HAS NOT received narcotic, sedative or anesthesia administration during this stay. Category 4: Outpatient in Procedural Areas with known sleep apnea or who screen positive for High Risk via the STOP/BANG questionnaire. Exam Exam Vital Signs Vital Signs Date Time Temp Pulse Resp B/P Pulse Ox O2 Delivery O2 Flow Rate FiO2 10/04/16 16:00 36.9 117 18 117/74 96 Room Air 10/04/16 12:00 37.0 107 16 99/62 96 Room Air General Appearance: Cooperative, No Acute Distress HEENT/AIRWAY: MP 2 Lungs: Clear to Auscultation Heart: Regular Rate/Rhythm Meds/Labs/Diagnostics Admission Meds Current Medications Piperacillin Sod/ Tazobactam Sod/ Dextrose/Water (Zosyn 3.375 Gm Inj/D5W Minibag Plus) 50 ml @ 12.5 mls/hr Q6H IV Last administered on 10/04/16 13:20 ; Start 10/04/16 at 00:00 Bupivacaine HCl/ Epinephrine Bitart 30 ml 30 ml STK-MED ONCE INFILTRATE Last administered on 10/04/16 19:38; Start 10/04/16 at 19:38; Stop 10/04/16 at 19:39 ; Status DC Lactated Ringer's (Lr) 1,000 ml @ ud STK-MED ONCE IV Last administered on 10/04 19:38; Start 10/04/16 at 19:38; Stop 10/04/16 at 19:39; Status DC Cefazolin Sodium (Ancef Inj) 2 gm STK-MED ONCE IVPUSH Last administered on 10/04 18:16; Start 10/04/16 at 18:16; Stop 10/04/16 at 19:40; Status DC Bedside Blood Glucose: 131 Labs Test 10/02/16 00:10 10/03/16 00:10 10/03/16 01:50 10/03/16 04:47 Prothrombin Time 11.8sec (8.1-12.5) Prothromb Time International Ratio 1.10ratio Lactic Acid Level 1.5mmol/L (0.4-2.0) Magnesium Level 2.0mg/dL (1.6-2.6) Lipase 40U/L (13-60) Activated Partial Thromboplast Time 30.8sec (22.8-33.0) Hemoglobin A1c 6.1% (4.8-5.6) Iron Level 8ug/dL (35-150) Total Iron Binding Capacity ug/dL (250-450) Percent Iron Saturation 32%sat (15-50) Unsaturated Iron Binding < 16.8ug/dL Urine Color Yellow (YELLOW) Urine Appearance Clear (CLEAR,HAZY) Urine pH 7.0 (5.0-8.0) Urine Specific Godwin 1.028 (1.003-1.035) Urine Protein Negativemg/dL (NEG,TRACE) Urine Glucose (UA) Negativemg/dL (NEGATIVE) Urine Ketones Negativemg/dL (NEGATIVE) Urine Occult Blood Moderate (NEGATIVE) Urine Nitrite Negative (NEGATIVE) Urine Bilirubin Negative (NEGATIVE) Urine Urobilinogen 2.0mg/dL (NORMAL) Urine Leukocyte Esterase Negative (NEGATIVE) Urine RBC 11-50/hpf (0-2) Urine WBC 0-5/hpf (0-5) Urine Epithelial Cells Moderate/hpf (NONE-MOD) Urine Crystals None seen (NONE SEEN) Urine Bacteria Few/hpf (NONE-FEW) Urine Hyaline Casts None/lpf (NONE) Urine Granular Casts None seen (NONE SEEN) Urine Waxy Casts None seen (NONE SEEN) Urine Red Blood Cell Casts None seen (NONE SEEN) Urine White Blood Cell Casts None seen (NONE SEEN) Urine Mucus None seen (None Seen) Urine Trichomonas None seen (NONE SEEN) Urine Yeast None (NONE SEEN) Urinalysis Comment None Urine Culture Reflexed Not indicated Band Neutrophils % 1% (1-5) Hematology Comments Ferritin 289ng/mL (13-150) Test 10/04/16 03:55 White Blood Count 11.8th/mm3 (3.8-10.1) Red Blood Count 2.97mil/mm3 (3.90-5.20) Hemoglobin 7.3g/dL (12.0-15.6) Hematocrit 23.6% (35.0-46.0) Mean Corpuscular Volume 79.5fL (81-100) Mean Corpuscular Hemoglobin 24.6pg (27.0-35.0) Mean Corpuscular Hemoglobin Concent 30.9% (32.0-37.0) Red Cell Distribution Width 16.0% (12.3-15.4) Platelet Count 364bil/L (150-400) Neutrophils (%) (Auto) 70.8% (40-74) Lymphocytes (%) (Auto) 16.3% (14-46) Monocytes (%) (Auto) 10.6% (4-12) Eosinophils (%) (Auto) 1.4% (0-5) Basophils (%) (Auto) 0.3% (0-3) Sodium Level 136mEq/L (134-144) Potassium Level 4.0mEq/L (3.5-5.2) Chloride Level 102mEq/L (97-108) Carbon Dioxide Level 19mmol/L (18-29) Blood Urea Nitrogen 4mg/dL (6-24) Creatinine < 0.30mg/dL (0.57-1.00) Estimat Glomerular Filtration Rate 332mL/min (>59) Glucose Level 118mg/dL (60-99) Calcium Level 7.9mg/dL (8.5-10.1) Total Bilirubin 0.4mg/dL (0.0-1.2) Aspartate Amino Transf (AST/SGOT) 28U/L (0-50) Alanine Aminotransferase (ALT/SGPT) 28U/L (0-32) Alkaline Phosphatase 241U/L (25-150) Total Protein 6.2g/dL (6.4-8.4) Albumin 2.1g/dL (3.4-5.0) Plan Impression Patient chart reviewed, patient interviewed and anesthestic plan with risks, benefits, and alternatives discussed, and informed consent obtained. ASA Physical Status: ASA3 Severe Disease Anesthetic Plan: GA Bene/Risks/Altern/Consents: Yes HP Complete Prior to Induction: Yes Prince Taylor MD October 04, 2016 19:48
--- NOTE | 2016-10-04 20:11 | PCM.PNMED ---
Subjective Date of Service October 04, 2016 Subjective Tiny is a 56-year-old Vietnamese only speaking woman with a developmental delay and early dementia in the hospital for sepsis and abdominal pain, found to have a large liver cyst or abscess Today she is feeling better than yesterday, more able to speak with us, and eagerly eating her breakfast. Exam Vital Signs Vital Sign - Last Date Time Temp Pulse Resp B/P Pulse Ox O2 Delivery O2 Flow Rate FiO2 10/04/16 16:00 36.9 117 18 117/74 96 Room Air Intake and Output 10/03/16 10/03/16 10/04/16 Cumulative From/Thru 15:00 23:00 07:00 10/02/16 23:14 - 10/04/16 05:58 Intake Total 2578 ml 2290 ml 6868 ml Output Total 2250 ml 2550 ml 6000 ml Balance 328 ml -260 ml 868 ml Intake Oral 740 ml 636 ml 1376 ml IV Total 1838 ml 1654 ml 5492 ml Output Urine Total 2250 ml 2500 ml 5950 ml Emesis 50 ml 50 ml Exam Gen: Patient in no apparent distress Neck: Supple, no JVD, full ROM HEENT: mucous membranes dry, EOMI, no scleral icterus, no conjunctival pallor CV: RRR, no murmurs rubs or gallops. Resp: Lung CTA BL, no wheezing rales or rhonchi Abd: Diffusely tender to palpation most acutely in RUQ and supra-pubic region, BS+ 4Q, no organomegaly, no rebound masses or guarding Extr: No cyanosis clubbing or edema Neuro: CN 2-12 grossly intact, no focal neurologic deficit Psych: Patient very stoic with minimal visible pain reaction, minimally verbal with single word difficult to comprehend IVs and Medications IV Fluids Sodium chloride at 125 mils per hour IV Lab and Diagnostics Result Diagram: 10/04/16 0355 10/04/16 0355 Microbiology Blood cultures pending X-Rays, CTs and MRIs CT abdomen Pelvis: Official report pending Night Jak Read: Large Heterogeneous liver mass that extends to the capsule. Crescentic shaped fluid and air collection in the subhepatic space along the right lateral abdominal wall may reflect ruptured intrahepatic mass or abscess; cannot entirely exclude abscess from tip appendicitis, though this is felt less likely. Distended urinary bladder with pelvocaliectasis bilaterally. Severe fecal loading of the colon. Possible right lower lobe pneumonia. Chest Xray portable Personal Read: Patient rotated right, trachea midline, poor inspiratory effort on film, RLL consolidation vs atelectasis, loop of fecal loaded bowel extending under left subdiaphragmatic region. Please correlate clinically Assessment & Plan Tiny Hill is a 56 year old developmentally delayed minimally verbal Vietnamese speaking female who presents with a 4 day history of anorexia with increasing abdominal pain. CT imaging in the ED reveals likely hepatic abscess with concurrent fever, leukocytosis, and Tachycardia. 1. Sepsis, POA, acute. Improving -Leukocytosis improved from 14.8 with neutrophilic predominance to 11.8 with 70.8% neutrophils, no fever this morning but still tachycardic at 108, Likely source Hepatic abscess and or RLL pneumonia -Vanco per pharmacy and Zosyn 3.375g q8 -NS @ 125/hr 2. Hepatic Mass, POA, acute. Active -Likely abscess -Abx as above -IVF as above -Dilaudid 0.5 mg IV Q4 for pain control -Dr. Villatoro of surgery will take patient to the OR this afternoon or evening 3. Developmental Delay, POA, chronic. Active -Patient minimally verbal in Vietnamese -Consent should be obtained from family for all necessary procedures(phone number posted on board) -Patient is very stoic and minimally verbal so PRN pain meds will be offered Q4 4. Microcytic anemia, POA, chronicity unknown. Active -Likely anemia of chronic disease with high ferritin and low iron stores. It is possible that this liver infection has been following a long indolent course -H/H 7.4/23.3 -Repeat evening H/H pending -Typed and crossed -Consider transfusion for Hg < 7 -Stool Guaiac ordered -Consider GI consult to identify source of possible bleed 5. Hyperglycemia, POA, chronicity unknown. Active -HA1c pending -Lispro low dose correctional scale 6. Large stool burden, POA, chronicity unknown. Active -Bowel prophylaxis with Senna and Miralax -Consider Dulcolax suppository if no BM in 24 hrs Code Status: FULL CODE, but after discussion with cousins who are caregivers describing the options they are going to have a conversation with Tiny and tell us tomorrow if they are going to change that CODE STATUS. Tiny voiced wanting to be allowed to pass naturally. Disposition: Inpatient, anticipated length of stay >2 midnights due to severity of condition and complexity of treatment plan. GI Prophylaxis: H2 joshua VTE Prophylaxis: Sub-Q Enoxaparin VTE Mechanical Devices: Venous Foot Pump Resuscitation Status: CPR: Attempt Resuscitation Attending Statement The patient was seen and examined together with Resident/House-staff on 10/04/16 and I agree with the history, exam and plan as outlined in the note above. Kolton Guillen DO October 04, 2016 20:11 Kevin Khan October 17, 2016 17:35
--- NOTE | 2016-10-04 20:12 | PCM.SURGOP ---
Surgical Operative Report Date of Service: October 04, 2016 Pre Operative Diagnosis Perforated appendicitis, liver abscess Post Operative Diagnosis Same Procedure: Laparoscopic appendectomy, laparoscopic drainage of liver abscess Surgeon and Hyperbaric Welder Diver: Surgeon: Isaak Villatoro M.D. Assistants: Kolton Pretty PA-C Indication for Procedure 56-year-old developmentally delayed woman who presented to the emergency department with 4 days of abdominal pain, fevers, vomiting. She had sepsis with tachycardia, fevers, and leukocytosis. Her imaging workup showed evidence of perforated appendicitis with a small intra-abdominal abscess containing fluid and gas, but also a large right posterior hepatic abscess measuring 11 cm. After discussion of risks and benefits with her family, informed consent was obtained for laparoscopic appendectomy with drainage of liver abscess. Findings: The appendix was perforated with a chronic abscess in the right paracolic gutter , which was cultured. The right posterior hepatic abscess was drained and cultured separately, and fluid was sent for bacterial culture, fungal culture, acid-fast bacilli, ova and parasites. Procedure Details After smooth induction of general endotracheal anesthesia, she was placed in the supine position with the left arm tucked, and was prepped and draped in wide sterile fashion. A procedural pause was performed according to the SCOAP checklist, and all were found to be in agreement. A curvilinear infraumbilical incision was made. Dissection was carried down with electrocautery until the midline fascia was incised vertically, and the peritoneal cavity was entered without difficulty. Pneumoperitoneum was established. Initial inspection revealed multiple fairly filmy adhesions to the anterior abdominal wall. Additional ports were placed under visualization, which were 5 mm ports. The port was placed in the midline above the symphysis pubis, and one in the left lower quadrant, lateral to the inferior epigastric vessels. The patient was placed with the right side up and headdown initially. Adhesions were taken down bluntly until the abscess in the right paracolic gutter was encountered and drained. Fluid was suctioned into a Lukens tube, and sent for bacterial culture. The appendix was bluntly mobilized out of the retrocecal space. This revealed a perforation in the midportion of the appendix , somewhat near the base. The remainder of the appendix was dissected free down to the normal base. A window was created at the base of the mesoappendix, and the mesoappendix was divided with an Endo TONNY stapler with a 45 mm vascular load. The base of the appendix was divided with an Endo TONNY stapler with a blue load. The appendix was placed into an Endo Catch bag and sent for permanent pathology. Next, an additional 5 mm port was placed in the right midabdomen under visualization. Adhesions were taken down bluntly until the gallbladder was visualized, which was normal. The left hepatic lobe was normal. The right hepatic lobe was densely adherent to the costal margin. Ultimately, using blunt dissection, the right posterior aspect of the right was exposed. It felt somewhat soft and spongy. I elected to bluntly dissect through the superficial liver parenchyma, and successfully entered the liver abscess. Fluid was suctioned from the abscess and sent for culture for bacterial culture, fungal, acid-fast bacilli, and ova and parasites. The fluid was thin purulent fluid, not the consistency of an anchovy paste. Loculations were broken up bluntly. The cavity was extensively irrigated and suctioned. Approximately 5 L of irrigant was used. Initially, large amounts of purulent fluid and debris were irrigated from the cavity. The entrance into the liver abscess cavity was enlarged using blunt dissection to an opening of approximately 2 cm. A 19 Burkinan round ROSSY drain was brought out through the right mid abdominal port site, and positioned within the hepatic abscess. The drain was secured to the skin with a 2-0 nylon stitch. The patient was flattened. The pelvis and right lower quadrant were extensively irrigated and suctioned again. Hemostasis was adequate. A second 19 Burkinan round ROSSY drain was brought out through the suprapubic incision, and positioned in the appendiceal fossa. The drain was secured to the skin with a 2-0 nylon stitch. The remaining ports were removed under visualization. The fascia of the umbilical port site was closed with an 0 Vicryl suture in a [id number]. The skin incisions were closed with running 4-0 Monocryl subcuticular suture. Steri-Strips and sterile dressings were applied. At the end of the case all needle and sponge counts were correct 2. The patient was awakened from anesthesia without difficulty, and taken to the recovery room in satisfactory condition, having tolerated the procedure well. Complications There were no periprocedural complications identified. Surgical Specimen Removed: Yes Specimen sent to Pathology: Yes Surgical Specimen description: appendix Anesthetic Plan: GA Grafts, Implants: None Output, Estimated Blood Loss: 50 Blood Administration during castro: No Drains: ROSSY Drain #1, ROSSY Drain #2 Catheters: Urethral 2 Way Isaak Alvarez MD October 04, 2016 20:12
--- NOTE | 2016-10-04 20:58 | CONS ---
[address] [address] CONSULTATION REPORT PATIENT: PAT ZHU : 1960 MR#: [id number] ADMIT: 10/03/2016 JOB ID: [id number] DATE OF SERVICE: 10/04/2016 CHIEF COMPLAINT: Abdominal pain. HISTORY OF PRESENT ILLNESS: The patient is a developmentally delayed woman who was seen with her cousin for the aid of history taking, as well as the landcare facilitator. Her story is quite complex and difficult to ascertain because of her severe developmental delay with early onset dementia. She lives with her family members who brought her into the emergency department with four days of abdominal pain, anorexia, as well as fever. At home, she was not having vomiting. She has not had any blood in her stool but did have some diarrhea. Going back over the past many months, she has not complained of any issues, but it is noted that she is very stoic and has difficulty communicating about health issues. In the emergency department, she was febrile, tachycardic, and had a leukocytosis of 14.8. CT scan of the abdomen and pelvis was obtained which showed a large multiloculated fluid collection in the liver measuring 10.6 cm in greatest dimension, with a subcapsular air fluid collection adjacent to the right hepatic lobe inferiorly which was thought to represent abscess. The fluid collection abuts the appendix which has an appendicolith and some fat stranding and concern for acute appendicitis with rupture at the tip. There was focal atelectasis of the right lower lobe of the lung. She then had an ultrasound of the abdomen last night which confirmed an 11.7 x 9.2 x 4.6 cm heterogeneous hypoechoic lesion in the posterior right hepatic lobe. There was no biliary ductal dilation. This corresponded to CT findings. It had no internal vascularity, so findings were thought to be consistent with liver abscess versus large necrotic neoplasm. PAST MEDICAL HISTORY: Developmental delay, early onset dementia, otherwise unknown. PAST SURGICAL HISTORY: None. MEDICATIONS: Home medicines are not available. ALLERGIES: No known drug allergies. SOCIAL HISTORY: She lives with her family. It is unknown if she has ever smoked. Denies alcohol or illicit drug use. FAMILY HISTORY: Positive for diabetes and hypertension, as well as ovarian cancer. REVIEW OF SYSTEMS: Unable to be obtained because of her dementia. PHYSICAL EXAMINATION: Temperature 37.0, pulse 107, blood pressure 99/62, saturation 96% on room air. Body mass index 20.2. General: She is resting in bed in no acute distress. HEENT: She has poor dentition. Neck: No jugular venous distention. Chest: Clear to auscultation bilaterally. Heart: Regular rate and rhythm, tachycardia. Abdomen is mildly distended. She is tender in the right upper quadrant with some involuntary guarding. The liver edge is enlarged. There are no hernias. There is no erythema of the abdominal wall, but the abdomen is warm. There are no other masses. Extremities: No edema. Neuro: She answers simple questions. LABORATORIES: White count is 11.8, hemoglobin 7.3, hematocrit 23.6, platelets 364. INR 1.10. Creatinine less than 0.30. Glucose 118. Albumin 2.1. Bilirubin 0.4, AST 28, ALT 28, alkaline phosphatase 241. IMAGING: As described in history of present illness. ASSESSMENT AND PLAN: A 56-year-old woman with developmental delay and imaging and clinical findings consistent with perforated appendicitis with abscess as well as possible large hepatic abscess. I have talked about two clinical options with her and her family. One option would be percutaneous drainage by Interventional Radiology and antibiotics followed by interval appendectomy. The other option would be proceeding with surgery tonight for laparoscopic appendectomy and drainage of liver abscess. I favor surgical approach now, because I do not think that percutaneous drainage will be completely effective with a large loculated lesion in the liver, as well as I am concerned about a perforated appendicitis with an appendicolith and gas and fluid collection in the right abdomen, not being adequately drained by percutaneous drainage and antibiotics alone. Technical aspects of surgery were discussed. Risks of surgery were discussed, including, but not limited to, bleeding, infection, injury to other organs, conversion to open surgery. I think it is highly likely that she will become increasingly septic after laparoscopic drainage of her liver abscess. Informed consent was obtained from her cousin, who is the current decision maker. All their questions were answered.
[2016-10-04 21:30] LABS: Mean Corpuscular Hemoglobin 25.2 pg (27.0-35.0); Mean Corpuscular Volume 81.5 fL (81-100); Platelet Count 290 bil/L (150-400)
--- NOTE | 2016-10-04 21:33 | ABG ---
DateTimeAnalyzed 21:29:00 -_ pH ____7.357 - 7.350 7.450 pCO2 ___38.5__ -mmHg 35.0 45.0 pO2 119 -mmHg 69.0 116 HCO3- ___21.1__ -mmol/L 22.0 26.0 ABE ___-3.5__ -mmol/L -2.0 2.0 tHb ____7.6__ -g/dL O2Hb ___96.1__ -% COHb ____1.1__ -% MetHb ____1.2__ -% sO2 ___98.4__ -% FIO2 ___50.0__ -% PEEP ____5.0__ -cmH2O Set_RR ___14.0__ -b/min Vt __400.0__ -L Drawn By MD - Date/Time Notified____ 21:33:00 -_ Spontaneous_RR ___16.0__ -b/min Oxygen Device 1 VENTILATOR - Notified By MD - Notified Whom RN K.SWAN - B 756 -mmHg tO2 ___10.5__ -Vol% Miguel test N/A -
[2016-10-04] MEDS ORDERED: fentaNYL 2,500 mCg/250 mL 2,500 MCG in IV Premix 1 EACH IV SCH (21:41)
[2016-10-04] MEDS: Chlorhexidine 0.12% 15 mL Oral Solution MT SCH ×2 (21:48→23:42)
[2016-10-04] MEDS: Propofol Inj 1,000,000 MCG in IV Premix 1 EACH IV SCH (21:56)
--- NOTE | 2016-10-04 22:01 | DRSVH ---
PROCEDURE: X-RAY CHEST ONE VIEW, PORTABLE ([id number]) INDICATIONS: Post intubation to verify endotracheal tube placement TECHNIQUE: One view of the chest was acquired. COMPARISON: [facility], CR, XR CHEST 1VW (PORTABLE), 10/03/2016, 0:27. FINDINGS: Surgical changes and devices: There is a new endotracheal tube with the tip approximately 3.7 cm from the madan. Lungs and pleura: A small right pleural effusion is demonstrated with increased right basilar opacit ies and air bronchograms consistent with consolidation. There are increased left medial retrocardiac opacities consistent with atelectasis or consolidation. Mediastinum: Mediastinal contours appear unchanged. Heart size is normal. Bones and chest wall: No suspicious bony lesions. Overlying soft tissues appear unremarkable. IMPRESSION: 1. Endotracheal tube tip 3.7 cm from the madan. 2. Small right pleural effusion with increased right basilar consolidation as well as left retrocard iac atelectasis or consolidation. The bibasilar distribution also raises the possibility of aspirati on. Dictated by: Kiran De La Vega M.D. on 10/04/2016 at 21:57 Approved by: Kiran De La Vega M.D. on 10/04/2016 at 21:59
[2016-10-04 22:10] LABS: BASOPHILS % (AUTO) 0 % (0-3); EOSINOPHILS % (AUTO) 0 % (0-5); MONOCYTES % (AUTO) 8 % (4-12); NEUTROPHILS % (AUTO) 71 % (40-74)
--- NOTE | 2016-10-04 22:31 | PCM.ANEP1 ---
Post Anesthesia Phase 1 PACU Phase 1 Assessment Date of Service: October 04, 2016 Vital Signs Vital Signs Date Time Temp Pulse Resp B/P Pulse Ox O2 Delivery O2 Flow Rate FiO2 10/04/16 20:45 37.5 111 21 103/72 100 Mechanical Ventilator 10/04/16 20:45 Ventilator 10/04/16 20:42 114 98 50 10/04/16 16:00 36.9 117 18 117/74 96 Room Air Anesthetic Administered: GA Level of Alertness: Sleepy, easy to arouse JARAMILLO's with Equal Strength: Yes Pain: Yes Pain Scale Score: 5 Nausea or Vomiting: No Airway Device: Endotrachial Tube Oxygen Delivery: Mechanical Ventilator Comments Patient required reintubation in OR secondary to poor ventilatory effort. She was transferred otherwise stable to the CCU by AMBU bag. Attempts will be made to extubate her either later tonight or in the morning. Follow-up labs and ABG are reassuring. Prince Taylor MD October 04, 2016 22:31
[2016-10-04] MEDS ORDERED: KCl 40 mEq/500 mL D5W(K 3 - 3.7 & Creat < 2) IV ONE (23:15)
[2016-10-04] MEDS: Heparin 5,000 Unit/mL Inj SUBQ SCH (23:41)
[2016-10-05] VITALS (12 sets, daily range): BP systolic 84–155; BP diastolic 52–72; PULSE 96–122; RESP 18–35; O2SAT 93–100
[2016-10-05] MEDS: Piperacillin-Tazo 3.375 Gm Inj 3.375 GM in Dextrose 5% Minibag Plus 50 ML IV SCH ×4 (01:55→17:52)
[2016-10-05] MEDS: Chlorhexidine 0.12% 15 mL Oral Solution MT SCH ×5 (03:25→21:48)
[2016-10-05] MEDS: HYDROmorphone 0.5 mg/0.5 mL iSecure Syringe IVPUSH PRN ×3 (03:25→20:39)
[2016-10-05 04:16] LABS: BASOPHILS % (AUTO) 0.4 % (0-3); EOSINOPHILS % (AUTO) 0.4 % (0-5); MONOCYTES % (AUTO) 5.5 % (4-12); Mean Corpuscular Hemoglobin 24.8 pg (27.0-35.0); Mean Corpuscular Volume 80.5 fL (81-100); NEUTROPHILS % (AUTO) 79.1 % (40-74)
[2016-10-05 04:35] LABS: Platelet Count 371 bil/L (150-400)
--- NOTE | 2016-10-05 05:44 | NUR ---
Post Op Patient arrived from PACU at approximately 2044. Belongings moved from previous room to new room. Family member at bedside, has questions answered, stated MD explained procedure to her. Patient intubated, restrained, Propofol started and Dilaudid administered for pain. MD updated on pain control. Patient has two ROSSY drains and two small incisions. SCDs in place. Sharma draining to gravity.
[2016-10-05] MEDS: 0.9% Sodium Chloride 1,000 ML IV SCH ×3 (06:20→23:36)
[2016-10-05] MEDS: Insulin LISPRO 300 Unit/3 mL Inj SUBQ SCH ×4 (08:00→22:00)
[2016-10-05] MEDS: Polyethylene Glycol (PEG) 17 Gm Powder PO SCH ×2 (08:30→09:35)
[2016-10-05] MEDS: Sodium Chloride LOK Flush 10 mL Syringe IVFLUSH SCH ×4 (09:22→17:40)
[2016-10-05] MEDS: Heparin 5,000 Unit/mL Inj SUBQ SCH ×2 (09:27→17:51)
[2016-10-05] MEDS: Propofol Inj 1,000,000 MCG in IV Premix 1 EACH IV SCH (09:34)
[2016-10-05] MEDS: metroNIDAZOLE Inj 1,000 MG in IV Premix 1 EACH IV SCH ×2 (09:34→21:38)
--- NOTE | 2016-10-05 09:51 | PROG NOTE ---
[address] [address] PROGRESS NOTE PATIENT: PAT ZHU : 1960 MR#: [id number] ADMIT: 10/03/2016 JOB ID: [id number] DATE: 10/05/2016 REASON FOR FOLLOWUP: Perforated appendix with development of large abscess involving the liver. INTERVAL HISTORY: This is a patient who I have been asked to evaluate for possible liver abscess. General Surgery was consulted and most appropriately took the patient to surgery yesterday. Dr. Villatoro perform an extensive drainage and appendectomy with direct drainage of the large liver abscess. Patient tolerated this procedure well and was extubated just hours ago here in the ICU. She is currently awake and alert. She states she has some pain at the postop site but apparently not too much. Recall this patient has profound developmental delay with some early dementia, so history taking is challenging, but she says she is not short of breath, not having severe pain at least at the site of the surgery, and not having fevers or chills. Beyond that, it is hard to ascertain much. PHYSICAL EXAMINATION: Reveals an afebrile woman, temp 37.2. Her blood pressure is approximately 100/60. Pulse is sinus tach at about 110. Respiratory rate in the mid 20s. She is saturating well on nasal oxygen. The patient, as mentioned, awake, alert, somewhat interactive as normal. Oral cavity without thrush or pharyngitis. Lungs quite clear. Cardiac tones tachycardic but without notable murmur. The abdomen is tender as one would expect postop with small laparoscopic type incisions present across the abdomen. A single Sin-Hines drain is noted and is draining purulent material. No skin rash. LABORATORIES: Include a white count which is dropping rapidly now down to 7300. The diff shows 80% segs. Creatinine 0.3. LFTs basically normal except for an alk phos 177, and that is improving. Albumin only 1.9, unfortunately. Amoebic antibody is pending, but it no longer appears that this is in any way an amebic abscess. Micro includes negative blood cultures, negative MRSA screen. The tissue obtained at surgery is still very early in its micro workup, but we do see a few gram-negative rods on some of the material, as well as some gram variable rods. IMPRESSION: Polymicrobial abdominal and hepatic abscess secondary to perforated appendix, now status post definitive surgical drainage with clinical improvement. RECOMMENDATIONS: 1. Will continue with Zosyn. 2. The patient remains on Flagyl as well for the outside possibility that this is in some way an amoebic liver abscess, and I think that is probably reasonable. 3. No other antibiotics are needed at this point. The patient is likely to have an uncomplicated course now that everything has been appropriately drained and resected.
[2016-10-05] MEDS ORDERED: 0.9% Sodium Chloride 250 ML IV PRN (12:00)
--- NOTE | 2016-10-05 12:09 | NUR ---
Evaluation completed. Please go to "Notes" then click on "Assessments and Notes" (bottom left corner of screen). Then select appropriate discipline tab on top of screen.
--- NOTE | 2016-10-05 13:07 | PROG NOTE ---
[address] [address] PROGRESS NOTE PATIENT: PAT ZHU : 1960 MR#: [id number] ADMIT: 10/03/2016 JOB ID: [id number] DATE: 10/05/2016 Postop day one following laparoscopic appendectomy and laparoscopic drainage of liver abscess. She is afebrile, tachycardic between 105 and 122. Blood pressure is 96/56, plus or minus a few millimeters of mercury. She appears well, states that she feels well, and is talking on the phone quite animatedly when I first come into the room. Her abdomen was soft, tender around the incisions, a bit distended and tympanic. Both drains have significant amount of chocolate-colored fluid in them, and I have emptied them both and reset the bulbs. Labs show that her white count is 7.3. Her hematocrit is 24, essentially stable. IMPRESSION/PLAN: Doing well following surgery for perforated appendicitis with probable secondary liver abscess. I would note that she has been tachycardic her entire hospitalization, as well as anemic. I believe that she would benefit from a blood transfusion for both wound healing and mobilization purposes and I will order one.
--- NOTE | 2016-10-05 13:20 | NUR ---
Transfer to [facility] in stable improving condition RN-to-RN report completed/all of pt's belongings/chart/meds transferred to new location. Family member with pt prior, during and after transfer.
--- NOTE | 2016-10-05 15:38 | NUR ---
NUTRITION ASSESSMENT: ASSESS:56 YO developmentally delayed female admitted with liver abscess; POD #1 following laparoscopic appendectomy and laparoscopic drainage of abscess. She was extubated this morning and transferred to [facility]. Large stool burden noted; Miralax ordered. The patient apparently has a history of dysphagia, and I see that there is no swallow evaluation ordered. Pt. currently ordered clear liquids x 1 D. PMHx:Profound developmental delay, early dementia. DIET:Clear liquids x 1 D. PO intake general diet 25% - 100% trays prior. LABS: Reviewed. Na 132, BUN 4, Cr 0.30, Glu 163, A1c 6.1, Ca 7.7, Alk Phos 177, Alb 1.9. MEDICATIONS: Reviewed. Synthroid. NUTRITION FOCUSED PHYSICAL ASSESSMENT: GI symptoms / stool: Large stool burden, none passed.Hardik: 14. Skin Integrity: No issues reported. ANTHROPOMETRICS: Current Wt: 56.4 kgBMI: 21.0 kg/m2.Admit weight: 52.2 kg. IBW: 54.5 kg (95.7% IBW) ESTIMATED NEEDS: Calories: 1305 - 1566 kcal (25 - 30 kcal / kg BW) Protein: 52 - 63 g protein (1.0 - 1.2 g / kg BW) Fluid: Approx. 1566 mL (30 mL / kg BW) NUTRITION DIAGNOSIS: 1)Chewing / swallowing difficulties of unknown etiology, as evidenced by family notation of dysphagia history. INTERVENTION: 1) Recommend swallow evaluation prior to advancing diet to mitigate aspiration issues. MONITOR/EVALUATE: Diet advance / tolerance, PO intake, labs, GI/nutrition status. Follow up per moderate nutrition risk guidelines.
[2016-10-05] MEDS ORDERED: 0.9% Sodium Chloride 250 ML ONE (15:50)
--- NOTE | 2016-10-05 19:49 | NUR ---
Transfer Pt transferred from [facility] at 1320. Report from ADILENE Drake. 2 person asst to transfer pt from w/c to bed. Cousin Melodie translating for pt. Pt denies pain. SCD's in place, RA, IV infusing and one s/l. Pt still tachycardia and elevated respirations, but this appears to be pt's normal. Pt has developmental delay and is alert to self and place only, answered questions appropriately.
--- NOTE | 2016-10-05 19:51 | NUR ---
Blood/Activity Dr. Guillen, hospitalist canceled Dr. Tovar orders to infuse blood, but when paged stated that this was an error and okay to infuse. Consent obtained over the phone from Melodie pt's cousin, doubled-signed by two RN's. Blood double-checked by two RN's and transfusion began at 1743. Pt advised to use call light if any s/s reaction or feeling different. Student nurse stayed in room with pt for safety. For first 15 minutes blood at 75cc/hr. At 15 minutes in vital signs rechecked and small increase in temperature, but less than 1 degree Celsius, so infusion continued to run. IV site started to leak with blood, so IV sites traded so that blood can continue to run at 150cc/hr. No s/s reaction seen. Swallow eval done by charge account clerk and MD put soft diet orders in. Pt able to tolerate Jello and pudding, but has not taken any PO medications yet.
--- NOTE | 2016-10-05 23:25 | NUR ---
BLOOD TRANSFUSION/IV/PAIN: 1 unit of PRBC infusion completed at 2114. Tolerated well. No adverse reactions. IV on LAC was infiltrated, removed and placed new line on right hand. Pt. does not ask for pain medication but her facial expressions indicate pain. Given 0.5 mg of IV Dilaudid and 325 mg of PO Tylenol. Effective, Pt. appears more comfortable. Repositioned in bed for skin protection. Mouth care done at HS. On going care.
[2016-10-06] MEDS: Sodium Chloride LOK Flush 10 mL Syringe IVFLUSH SCH ×6 (00:30→16:30)
[2016-10-06] MEDS: Piperacillin-Tazo 3.375 Gm Inj 3.375 GM in Dextrose 5% Minibag Plus 50 ML IV SCH ×5 (01:04→23:57)
[2016-10-06] MEDS: Heparin 5,000 Unit/mL Inj SUBQ SCH ×3 (01:05→17:12)
[2016-10-06] MEDS: Chlorhexidine 0.12% 15 mL Oral Solution MT SCH ×6 (01:05→21:39)
[2016-10-06 05:34] VITALS: BP 111/69; PULSE 98; RESP 18; O2SAT 97
[2016-10-06] MEDS: HYDROmorphone 0.5 mg/0.5 mL iSecure Syringe IVPUSH PRN ×3 (06:03→18:37)
[2016-10-06] MEDS: 0.9% Sodium Chloride 1,000 ML IV SCH (07:53)
[2016-10-06] MEDS: Insulin LISPRO 300 Unit/3 mL Inj SUBQ SCH ×4 (08:00→22:00)
[2016-10-06 08:26] LABS: BASOPHILS % (AUTO) 0.5 % (0-3); EOSINOPHILS % (AUTO) 0.5 % (0-5); MONOCYTES % (AUTO) 6.1 % (4-12); Mean Corpuscular Hemoglobin 25.6 pg (27.0-35.0); NEUTROPHILS % (AUTO) 78.2 % (40-74); Platelet Count 383 bil/L (150-400)
[2016-10-06 09:26] LABS: Bilirubin, Direct 0.2 mg/dL (0.0-0.3)
[2016-10-06 09:27] LABS: Phosphorus 3.1 mg/dL (2.5-4.9)
[2016-10-06] MEDS: metroNIDAZOLE Inj 1,000 MG in IV Premix 1 EACH IV SCH ×2 (09:53→21:30)
--- NOTE | 2016-10-06 10:36 | DRSVH ---
PROCEDURE: X-RAY ACUTE ABDOMINAL SERIES ([id number]) INDICATIONS: post op distention TECHNIQUE: One view chest and two views of the abdomen were acquired. COMPARISON: [facility], CT, CT ABD PELVIS W CON, 10/03/2016, 1:11. FINDINGS: Surgical changes and devices: There are 2 surgical drains projecting over the right abdomen.. Chest: Heart size is normal. There are small pleural effusions with left retrocardiac consolidation . There are also linear opacities in the right lung base likely representing atelectasis. No defini te pneumoperitoneum. Abdomen: There is marked gaseous distention of the colon most prominent within the transverse colon which measures up to 8.5 cm. The colon is nondistended distal to the level of the mid descending col on. There are multiple air-fluid levels predominantly within the small bowel there Bones: No suspicious bony lesions. IMPRESSION: 1. Marked gaseous distention of the colon and multiple small bowel air-fluid levels. Findings are s uggestive of a postoperative ileus given recent surgery, but a distal colonic obstruction at the leve l of the mid descending colon cannot be excluded. Recommend correlation clinically and a short term followup repeat study or further evaluation with CT. Dictated by: Kiran De La Vega M.D. on 10/06/2016 at 10:25 Approved by: Kiran De La Vega M.D. on 10/06/2016 at 10:29
[2016-10-06] MEDS: Lactated Ringer's 1,000 ML IV SCH (11:27)
[2016-10-06 11:28] VITALS: BP 102/67; PULSE 98; RESP 20; O2SAT 96
--- NOTE | 2016-10-06 11:34 | NUR ---
GI Per report, pt had BM yesterday. Today, abd distended and painful. Tolerated breakfast. No vomiting, denies nausea (through family interpreting). Abd xray shows ileus. NPO per MD. Plan to increase activity and sit in chair today when mobile sales technician or family available to assist.
--- NOTE | 2016-10-06 11:53 | NUR ---
Social Work: Readiness for Discharge D: Per EMR review, pt is on day 3 of hospitalization for Liver Abscess. NOK is Melodie Marvin, pt's cousin ([phone] and [phone]). Pt is not medically stable for discharge at this time, anticipate 1-2 more days of hospitalization. Pt was transfused last night. Pt resides at home with her cousin who is her caregiver. [facility] by [facility]. Family anticipates taking pt home when medically stable. A: Pt who is developmentally delayed and lives with family who provides care. P: Anticipate pt to discharge home when medically stable; [employer] to continue to follow ADEEL Hernandez Addendum: 10/09/16 at 1402 by SOPHIA CHANG SW confirmed [facility] referral has been made and received.
--- NOTE | 2016-10-06 12:11 | PCM.PNMED ---
Subjective Date of Service October 06, 2016 Subjective pt looked very uncomfortable with her belly, not able to communicate even with interpreter deaf per RN KUB today per , showed ileus reported BM yesterday Exam Vital Signs Vital Sign - Last Date Time Temp Pulse Resp B/P Pulse Ox O2 Delivery O2 Flow Rate FiO2 10/06/16 11:28 36.9 98 20 102/67 96 Room Air 10/05/16 07:03 28 Intake and Output 10/05/16 10/05/16 10/06/16 Cumulative From/Thru 15:00 23:00 07:00 10/02/16 23:14 - 10/06/16 05:34 Intake Total 1374 ml 1632 ml 1180 ml 87825 ml Output Total 640 ml 1520 ml 790 ml 09943 ml Balance 734 ml 112 ml 390 ml 2226 ml Intake Oral 120 ml 100 ml 2078 ml IV Total 1374 ml 1142 ml 1080 ml 20822 ml Packed Cells 370 ml 370 ml Output Urine Total 450 ml 1400 ml 750 ml 97645 ml Emesis 50 ml Drainage Total 190 ml 120 ml 40 ml 690 ml Estimated Blood Loss 100 ml Exam uncomfortable, diaphoretic, no JVD, MMM, no LAD tachycardic, nl s1, s2 no mrg CTAB, no w,c S,ND,NT, hypoactive BS+, ROSSY drainx2 in place, serosanguinous fluid warm, no edema, pulses 2/2 IVs and Medications Medications Reviewed: Medications were reviewed in detail Lab and Diagnostics Result Diagram: 10/06/16 0800 10/06/16 0800 Microbiology Blood cultures pending X-Rays, CTs and MRIs CT abdomen Pelvis: Official report pending [place] Read: Large Heterogeneous liver mass that extends to the capsule. Crescentic shaped fluid and air collection in the subhepatic space along the right lateral abdominal wall may reflect ruptured intrahepatic mass or abscess; cannot entirely exclude abscess from tip appendicitis, though this is felt less likely. Distended urinary bladder with pelvocaliectasis bilaterally. Severe fecal loading of the colon. Possible right lower lobe pneumonia. Chest Xray portable Personal Read: Patient rotated right, trachea midline, poor inspiratory effort on film, RLL consolidation vs atelectasis, loop of fecal loaded bowel extending under left subdiaphragmatic region. Please correlate clinically Assessment & Plan Tiny Hill is a 56 year old developmentally delayed minimally verbal Togolese speaking female who presents with a 4 day history of anorexia with increasing abdominal pain. CT imaging in the ED reveals likely hepatic abscess with concurrent fever, leukocytosis, and Tachycardia. acute, active 1. Sepsis, POA, source: intraabdominal infection with liver abscess, perforated appendix. Leukocytosis improved from 14.8 with neutrophilic predominance to 11.8 with 70.8% neutrophils, -HD stable, postoperatively 10/04 -s/p Vanco per pharmacy. stopped, continue Zosyn 3.375g q8. meropenem per ID, -continue NS75cc/hr, target MAP>65 2. large hepatic abscess, complicated by perforated appendix s/p drainage by on 10/04 -appreciate surgery follow up, especially given worsening exam findings today, increasing pain likely from ileus post-op course. -Dilaudid 0.5 mg IV Q4 for pain control -monitor sx improvement, stool softner possibly, defer to surgery chronic, stable 3. Developmental Delay, POA, chronic. Patient minimally verbal in Togolese, will communicate via family -Patient is very stoic and minimally verbal so PRN pain meds will be offered Q4 4. Microcytic anemia, POA, chronicity unknown. stable, Likely anemia of chronic disease with high ferritin and low iron stores. 5. Hyperglycemia, POA, chronicity unknown. HA1c6.1, Lispro low dose correctional scale 6. Large stool burden, POA, chronicity unknown. Bowel prophylaxis with Senna and Miralax -Consider Dulcolax suppository if no BM in 24 hrs Code Status: FULL CODE, as per previous provider, Tiny voiced wanting to be allowed to pass naturally. Disposition: pending, based on surgical course GI Prophylaxis: H2 joshua VTE Prophylaxis: Sub-Q Enoxaparin VTE Mechanical Devices: Intermittant Pneumatic CD Resuscitation Status: CPR: Attempt Resuscitation Time spent 35min Delonte Lo MD October 06, 2016 12:07
--- NOTE | 2016-10-06 12:50 | PROG NOTE ---
[address] [address] PROGRESS NOTE PATIENT: PAT ZHU : 1960 MR#: [id number] ADMIT: 10/03/2016 JOB ID: [id number] DATE: 10/06/2016 NOTE FOLLOWS: Postop day two. She has been afebrile, stable vital signs. Sin-Hines drains put out 205 and 445 of serosanguinous somewhat dark purulent-looking material over the previous 24 hours though output is markedly decreasing. Her abdomen is moderately distended, much more so than yesterday. Her incisions are in good shape. Bowel tones are quiet. Labs show that her white count is bumped up a bit to 10.2, her hematocrit is stable at 26.9, platelet count is normal at 383. Chemistries are within normal limits. Glucose is 101. Albumin remains quite low. Pro calcitonin was 1.59. IMAGING: Based on her clinical appearance today, I obtained an acute abdominal series that demonstrates the drains are in good place, but with an ileus pattern with a lot of gas in the colon and small intestine. IMPRESSION AND PLAN: Postop bowel function is slow to return to normal. I will cut back on her p.o. intake, make certain that she is receiving some IV fluid, and have follow up labs tomorrow.
[2016-10-06] MEDS: Ondansetron 2 mg/mL 2 mL Inj IVPUSH PRN (20:01)
--- NOTE | 2016-10-06 20:12 | PCM.PNMED ---
Subjective Date of Service October 05, 2016 Subjective Tiny is a 56-year-old Citizen [place] only speaking woman with a developmental delay and early dementia in the hospital for sepsis and abdominal pain, found on imaging to have a large liver cyst or abscess and appendolith with perforated appendix, taken to surgery on 10/04/16 for laparoscopic procedure. The day after surgery Tiny is very comfortable, sepsis resolved, PRBCs given after surgery and improved her anemia, decision made to transfer her to the surgical floor. She reports no pain but seems to be curious and per tabs irritated by the drain still in her abdomen from surgery. Exam Vital Signs Vital Sign - Last Date Time Temp Pulse Resp B/P Pulse Ox O2 Delivery O2 Flow Rate FiO2 10/06/16 13:03 Room Air 10/06/16 11:28 36.9 98 20 102/67 96 10/05/16 07:03 28 Intake and Output 10/05/16 10/05/16 10/06/16 Cumulative From/Thru 15:00 23:00 07:00 10/02/16 23:14 - 10/06/16 05:34 Intake Total 1374 ml 1632 ml 1180 ml 01012 ml Output Total 640 ml 1520 ml 790 ml 97621 ml Balance 734 ml 112 ml 390 ml 2226 ml Intake Oral 120 ml 100 ml 2078 ml IV Total 1374 ml 1142 ml 1080 ml 54709 ml Packed Cells 370 ml 370 ml Output Urine Total 450 ml 1400 ml 750 ml 38115 ml Emesis 50 ml Drainage Total 190 ml 120 ml 40 ml 690 ml Estimated Blood Loss 100 ml Exam Gen: Patient in no apparent distress Neck: Supple, no JVD, full ROM HEENT: mucous membranes dry, EOMI, no scleral icterus, no conjunctival pallor CV: RRR, no murmurs rubs or gallops. Resp: Lung CTA BL, no wheezing rales or rhonchi Abd: Diffusely tender to palpation most acutely in RUQ and supra-pubic region, BS+ 4Q, no organomegaly, no rebound masses or guarding Extr: No cyanosis clubbing or edema Neuro: CN 2-12 grossly intact, no focal neurologic deficit Psych: Patient very stoic with minimal visible pain reaction, minimally verbal with single word difficult to comprehend IVs and Medications IV Fluids Normal saline at 125 mils per hour IV Lab and Diagnostics Result Diagram: 10/06/16 0800 10/06/16 0800 Microbiology Blood cultures pending X-Rays, CTs and MRIs CT abdomen Pelvis: Official report pending [place] Read: Large Heterogeneous liver mass that extends to the capsule. Crescentic shaped fluid and air collection in the subhepatic space along the right lateral abdominal wall may reflect ruptured intrahepatic mass or abscess; cannot entirely exclude abscess from tip appendicitis, though this is felt less likely. Distended urinary bladder with pelvocaliectasis bilaterally. Severe fecal loading of the colon. Possible right lower lobe pneumonia. Chest Xray portable Personal Read: Patient rotated right, trachea midline, poor inspiratory effort on film, RLL consolidation vs atelectasis, loop of fecal loaded bowel extending under left subdiaphragmatic region. Please correlate clinically Assessment & Plan Tiny Hill is a 56 year old developmentally delayed minimally verbal Citizen [place] speaking female who presents with a 4 day history of anorexia with increasing abdominal pain. CT imaging in the ED reveals likely hepatic abscess with concurrent fever, leukocytosis, and Tachycardia. acute, active 1. Sepsis, present on admission, resolved -HD stable, postoperatively 10/04 -Per Dr. Blue of infectious disease we will continue Zosyn and Flagyl. -continue NS 125cc/hr 2. large hepatic abscess, complicated by perforated appendix s/p drainage by on 10/04 -appreciate surgery follow up, patient is doing well post surgical -Dilaudid 0.5 mg IV Q4 for pain control -monitor sx improvement, stool softener possibly, defer to surgery -Patient given 1 unit PRBCs after surgery chronic, stable 3. Developmental Delay, POA, chronic. Patient minimally verbal in [place], will communicate via family -Patient is very stoic and minimally verbal so PRN pain meds will be offered Q4 4. Microcytic anemia, POA, chronicity unknown. stable, Likely anemia of chronic disease with high ferritin and low iron stores. -Some improvement of H&H with administration of PRBCs, minimal blood loss during surgery 5. Hyperglycemia, POA, chronicity unknown. HA1c6.1, Lispro low dose correctional scale 6. Large stool burden, POA, chronicity unknown. Bowel prophylaxis with Senna and Miralax -Consider Dulcolax suppository if no BM in 24 hrs Code Status: FULL CODE Pain Evaluation: Adequate Pain Control GI Prophylaxis: H2 joshua VTE Prophylaxis: Sub-Q Enoxaparin VTE Mechanical Devices: Intermittant Pneumatic CD Resuscitation Status: CPR: Attempt Resuscitation Attending Statement The patient was seen and examined together with Dr. Guillen on 10/05/2016 and I agree with the history, exam and plan as outlined in the note above. . Kolton Guillen DO October 06, 2016 20:12 Nick Thomas MD October 07, 2016 16:57
[2016-10-06 20:20] VITALS: BP 113/71; PULSE 96; RESP 16; O2SAT 94
[2016-10-07] MEDS: Heparin 5,000 Unit/mL Inj SUBQ SCH ×3 (00:30→18:15)
[2016-10-07] MEDS: Sodium Chloride LOK Flush 10 mL Syringe IVFLUSH SCH ×6 (00:30→16:30)
[2016-10-07] MEDS: Chlorhexidine 0.12% 15 mL Oral Solution MT SCH ×6 (00:31→20:42)
[2016-10-07] MEDS: Lactated Ringer's 1,000 ML IV SCH (01:49)
[2016-10-07] MEDS: HYDROmorphone 0.5 mg/0.5 mL iSecure Syringe IVPUSH PRN ×4 (02:01→18:23)
--- NOTE | 2016-10-07 02:31 | NUR ---
ACTIVITY: Pt. resting in bed most of the evening. Medicated with PO Tylenol, does not mention pain but facial expression and frown indicates pt. is in pain. Moans in pain when repositioned in bed. Given 4 mg of IV Dilaudid for c/o nausea, NO emesis. Sharma catheter in placed with cloudy and katrin urine. JP1 and JP2 in place. Abdomen is still distended but soft with NO BT. Pt. unable to indicate if passing flatus. Encouraged ambulation. Was up ambulating on the hallway prior to HS with this RNs help. Tolerated ambulation well. Given 0.5 mg of IV Dilaudid for pain control. Alert and responsive, pleasant and cooperative with care. On going care.
[2016-10-07 05:57] VITALS: BP 132/77; PULSE 94; RESP 16; O2SAT 94
[2016-10-07 06:04] LABS: BASOPHILS % (AUTO) 0.6 % (0-3)
[2016-10-07 06:15] LABS: EOSINOPHILS % (AUTO) 0.5 % (0-5); MONOCYTES % (AUTO) 5.1 % (4-12); Mean Corpuscular Hemoglobin 25.2 pg (27.0-35.0); Mean Corpuscular Volume 80.7 fL (81-100); NEUTROPHILS % (AUTO) 80.1 % (40-74); Platelet Count 427 bil/L (150-400)
[2016-10-07] MEDS: Piperacillin-Tazo 3.375 Gm Inj 3.375 GM in Dextrose 5% Minibag Plus 50 ML IV SCH (06:15)
[2016-10-07 06:20] LABS: Phosphorus 3.5 mg/dL (2.5-4.9)
[2016-10-07] MEDS: Insulin LISPRO 300 Unit/3 mL Inj SUBQ SCH ×4 (08:00→22:00)
[2016-10-07] MEDS: Polyethylene Glycol (PEG) 17 Gm Powder PO SCH (08:30)
[2016-10-07] MEDS ORDERED: levoFLOXacin Inj 750 MG in IV Premix 1 EACH IV SCH (08:35)
--- NOTE | 2016-10-07 08:36 | PCM.PNMED ---
Subjective Date of Service October 07, 2016 Subjective pt was kept in NPO to relieve sx per surgery pt looked still distressed with pain but better than yesterday had another fever 37.6 at 8pm prelim cultures showed anaerobes, E.coli pt was seen with language interpreter at the bedside, c/o mild nausea, no vomiting when asked about pain, pt stated it doesn't hurt Exam Vital Signs Vital Sign - Last Date Time Temp Pulse Resp B/P Pulse Ox O2 Delivery O2 Flow Rate FiO2 10/07/16 05:57 36.8 94 16 132/77 94 Room Air 10/05/16 07:03 28 Intake and Output 10/06/16 10/06/16 10/07/16 Cumulative From/Thru 15:00 23:00 07:00 10/02/16 23:14 - 10/07/16 06:23 Intake Total 1996 ml 1295 ml 16084 ml Output Total 1150 ml 720 ml 27141 ml Balance 846 ml 575 ml 3647 ml Intake Oral 300 ml 0 ml 2378 ml IV Total 1696 ml 1295 ml 10331 ml Packed Cells 370 ml Output Urine Total 1100 ml 700 ml 27099 ml Emesis 50 ml Drainage Total 50 ml 20 ml 760 ml Estimated Blood Loss 100 ml # Bowel Movements 0 0 Exam uncomfortable, diaphoretic, no JVD, MMM, no LAD tachycardic, nl s1, s2 no mrg CTAB, no w,c S,less distended, mildly tender throughout, hypoactive BS+, ROSSY drainx2 in place , serosanguinous fluid warm, no edema, pulses 2/2 IVs and Medications Medications Reviewed: Medications were reviewed in detail Lab and Diagnostics Result Diagram: 10/07/16 0500 10/07/16 0500 Microbiology Blood cultures pending X-Rays, CTs and MRIs CT abdomen Pelvis: Official report pending [place] Read: Large Heterogeneous liver mass that extends to the capsule. Crescentic shaped fluid and air collection in the subhepatic space along the right lateral abdominal wall may reflect ruptured intrahepatic mass or abscess; cannot entirely exclude abscess from tip appendicitis, though this is felt less likely. Distended urinary bladder with pelvocaliectasis bilaterally. Severe fecal loading of the colon. Possible right lower lobe pneumonia. Chest Xray portable Personal Read: Patient rotated right, trachea midline, poor inspiratory effort on film, RLL consolidation vs atelectasis, loop of fecal loaded bowel extending under left subdiaphragmatic region. Please correlate clinically Assessment & Plan Tiny Hill is a 56 year old developmentally delayed minimally verbal Haitian speaking female who presents with a 4 day history of anorexia with increasing abdominal pain. CT imaging in the ED reveals likely hepatic abscess with concurrent fever, leukocytosis, and Tachycardia. acute, active 1. Sepsis, POA, source: intraabdominal infection with liver abscess, perforated appendix. Leukocytosis improved from 14.8 with neutrophilic predominance to 11.8 with 70.8% neutrophils, -HD stable, postoperatively 10/04 -continue NS75cc/hr, target MAP>65 2. large hepatic abscess, complicated by perforated appendix s/p drainage by on 10/04, prelim culture showed E.coli, anaerobes -appreciate surgery follow up, increasing pain likely from ileus post-op course. no BM reported -Dilaudid 0.5 mg IV Q4 for pain control -s/p Vanco per pharmacy, currently on flagyl, zosyn, appreciate abx choice per ID -monitor sx improvement, stool softner possibly, defer to surgery -NPO for now -awaits final culture results, chronic, stable 3. Developmental Delay, POA, chronic. Patient minimally verbal in Haitian, will communicate via family -Patient is very stoic and minim ally verbal so PRN pain meds will be offered Q4 4. Microcytic anemia, POA, chronicity unknown. stable, Likely anemia of chronic disease with high ferritin and low iron stores. 5. Hyperglycemia, POA, chronicity unknown. HA1c6.1, Lispro low dose correctional scale 6. Large stool burden, POA, chronicity unknown. Bowel prophylaxis with Senna and Miralax -Consider Dulcolax suppository if no BM in 24 hrs Code Status: FULL CODE, as per previous provider, Tiny voiced wanting to be allowed to pass naturally. Disposition: pending, based on surgical course GI Prophylaxis: H2 joshua VTE Prophylaxis: Sub-Q Enoxaparin VTE Mechanical Devices: Intermittant Pneumatic CD Resuscitation Status: CPR: Attempt Resuscitation Time spent 35min Delonte Lo MD October 07, 2016 08:36
--- NOTE | 2016-10-07 11:49 | NUR ---
NUTRITION FOLLOW UP: ASSESS:56 YO developmentally delayed female admitted with sepsis, intraabdominal infection with liver abscess and perforated appendix; POD #3 following laparoscopic appendectomy and laparoscopic drainage of abscess. Pt kept NPO, awaiting bowel function return. RN notes pt with abdominal distention, no BT. Started on Miralax/Senna over weekend. PMHx:Profound developmental delay, early dementia. DIET:NPO (x2d). Noted pt was on soft diet per RN swallow screen LABS: Reviewed. Na 139, Alb 1.8 MEDICATIONS: Reviewed. Synthroid. NUTRITION FOCUSED PHYSICAL ASSESSMENT: GI symptoms / stool: Large stool burden, none passed.Hardik: 17. Skin Integrity: No issues reported. ANTHROPOMETRICS: Current Wt: 56.8 kgBMI: 21.5 kg/m2.Admit weight: 52.2 kg. IBW: 54.5 kg (95.7% IBW) ESTIMATED NEEDS: Calories: 1305 - 1566 kcal (25 - 30 kcal / kg BW) Protein: 52 - 63 g protein (1.0 - 1.2 g / kg BW) Fluid: Approx. 1566 mL (30 mL / kg BW) NUTRITION DIAGNOSIS: 1)Chewing / swallowing difficulties of unknown etiology, as evidenced by family notation of dysphagia history. 2) Inadequate oral intake related to altered GI tract function as evidenced by NPO x 2 days status. INTERVENTION: 1) Monitor for diet advancement vs. evaluation for nutrition support if unable to advance diet next 2-3d. 2)Recommend swallow evaluation prior to advancing diet to mitigate aspiration issues. MONITOR/EVALUATE: Diet advance / tolerance, PO intake, labs, GI/nutrition status. Follow up per high nutrition risk guidelines.
[2016-10-07 12:23] VITALS: BP 112/72; PULSE 88; RESP 18; O2SAT 95
[2016-10-07] MEDS: metroNIDAZOLE Inj 1,000 MG in IV Premix 1 EACH IV SCH (12:30)
--- NOTE | 2016-10-07 13:48 | PCM.PNSURG ---
Subjective Date of Service: October 07, 2016 Date of Service: October 07, 2016 Visit Information: Reason for Visit Liver Abscess Surgery/Surgery Date Post-Op Day # 3 Date of Admission: October 03, 2016 at 03:29 Hospital Day # Subjective: Patient is brazilian speaking however mica layer states the patient feels better than yesterday. Patient states she had a BM and is passing gas however nurse does not agree with BM hx. Gastrointestinal: No N/V Pain Management: IV Push (fentanyl) Neurological: Weakness Postop Activity: Ambulating Independently (nees constant cueing) Objective Objective developmentally delayed female in mild distress Vital Sign- Last 8 Hours Date Time Temp Pulse Resp B/P Pulse Ox O2 Delivery O2 Flow Rate FiO2 10/07/16 12:23 36.8 88 18 112/72 95 Room Air 10/07/16 05:57 36.8 94 16 132/77 94 Room Air Intake and Output- Last 8 Hour 10/07/16 Cumulative From/Thru 07:00 10/02/16 23:14 - 10/07/16 06:23 Intake Total 1295 ml 93633 ml Output Total 720 ml 70905 ml Balance 575 ml 3647 ml Intake Oral 0 ml 2378 ml IV Total 1295 ml 10496 ml Packed Cells 370 ml Output Urine Total 700 ml 73585 ml Emesis 50 ml Drainage Total 20 ml 760 ml Estimated Blood Loss 100 ml # Bowel Movements 0 0 General: Cooperative, Mild Distress Lungs: Diminished Heart: Regular Rate/Rhythm Abdomen: Guarding, Distended, Other (hypoactive bowel sounds) Extremities: Warm Catheters: None Result Diagram: 10/07/16 0500 10/07/16 0500 Diagnostics: PROCEDURE: X-RAY ACUTE ABDOMINAL SERIES ([id number]) INDICATIONS: post op distention FINDINGS: Surgical changes and devices: There are 2 surgical drains projecting over the right abdomen.. Chest: Heart size is normal. There are small pleural effusions with left retrocardiac consolidation. There are also linear opacities in the right lung base likely representing atelectasis. No definite pneumoperitoneum. Abdomen: There is marked gaseous distention of the colon most prominent within the transverse colon which measures up to 8.5 cm. The colon is nondistended distal to the level of the mid descending colon. There are multiple air-fluid levels predominantly within the small bowel there Bones: No suspicious bony lesions. IMPRESSION: 1. Marked gaseous distention of the colon and multiple small bowel air-fluid levels. Findings are suggestive of a postoperative ileus given recent surgery, but a distal colonic obstruction at the level of the mid descending colon cannot be excluded. Recommend correlation clinically and a short term followup repeat study or further evaluation with CT. Additional Information: [place] [id number] [place] [id number] No BM and doubtful flatus Assessment & Plan Impression slow postoperative course POD #3, status post laparoscopic appendectomy and laparoscopic drainage of liver abscess complicated by continued post op ileus Problems: Plan 1. NPO x meds 2. Consider CT if progression continues 3. am labs 4. change IVF to d51/2ns20k and increase to 100/h 5. continue PT/ambulate 6. leave drains for now Pain Management: Fentanyl iv prn VTE Prophylaxis: Sub-Q Enoxaparin Resuscitation Status: CPR: Attempt Resuscitation Pipo Dasilva PA-C October 07, 2016 13:48 Ashutosh Bales PA-C October 07, 2016 16:54
[2016-10-07] MEDS: D5 0.45% NaCl + KCl 20 mEq/L 1,000 ML IV SCH (15:11)
--- NOTE | 2016-10-07 16:15 | PATH ---
SURGICAL PATHOLOGY Attending Physician:Justin Gonzalez CASE STATUS: Signed Out PATIENT NAME: PAT ZHU PID: [id number] : 1960 DATE COLLECTED:10/04/2016 00:00 SPECIMEN: Appendix CLINICAL HISTORY: APPENDICITIS LIVER ABSCESS 1. APPENDIX FINAL DIAGNOSIS: 1.APPENDIX: SEVERE DIFFUSE ACUTE AND CHRONIC APPENDICITIS. ICD10 CODE K35.80 GROSS DESCRIPTION: The specimen is received in formalin, labeled with the patient's name, sublabeled as appendix, and consists of an opened appendix (length-5.6 cm, diameter-1.3 cm) with attached mesoappendix (up to 0.6 cm in depth). The resection margin is received stapled. The serosa is epps-pink smooth and shiny and partially covered in red-brown flaky friable exudate. The lumen contains red-brown solid soft material. The wall is up to 0.4 cm thick. No nodules, masses or lesions are identified. Ink code: black-proximal. 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 10/05/16 MICRO DESCRIPTION: See diagnosis. ICD-9 CODES: CPT CODES: 1: 07425 Electronically Signed Out Francisco Moss MD [facility] Pathology [facility] [address], [place] [address] Technical component performed at [facility], [facility] [address], [place], [address]
--- NOTE | 2016-10-07 19:44 | NUR ---
Sharma/Activity Sharma removed at 1045, pt able to void 600 at 1500. Pt up and walking twice in hallways, up to BR and chair once. Pain medications given q4 to control pain. Pt switched to NPO, frequent oral care provided.
--- NOTE | 2016-10-07 20:05 | PROG NOTE ---
[address] [address] PROGRESS NOTE PATIENT: PAT ZHU : 1960 MR#: [id number] ADMIT: 10/03/2016 JOB ID: [id number] DATE: 10/07/2016 REASON FOR FOLLOWUP: Polymicrobial liver abscess secondary to ruptured appendix. INTERVAL HISTORY: Over the weekend, the patient has been relatively stable. No fevers. No chills. No sweats. No respiratory complaints. Minimal abdominal pain. As always, the patient is fairly laconic, and perhaps due to her developmental delay, does not offer a lot of detail. The patient is, however, now back to eating. PHYSICAL EXAMINATION: Reveals a reasonably comfortable woman sitting in a chair. Temp 36.8, pulse 88, respiratory rate 18, blood pressure 112/72. She is saturating well on room air. No acute distress. Oral cavity negative. Lungs clear. Cardiac tones without murmur. Abdomen: ROSSY drain in place but soft and relatively nontender. No skin rash. LABORATORIES: Include a white count which is 12,000, up from 7000 a couple days ago. Platelet count is also climbing, indicating there is still ongoing inflammation, though the bandemia she had previously has resolved. Creatinine 0.3. Alk phos slightly up at 203. ALT and AST normal. Albumin 1.8. Procalcitonin relatively stable at 1.5 on two measurements. Micro studies include pending fungal blood cultures. The cultures from the abdominal surgery are yielding two strains of E. coli as well as Bacteroides fragilis. She is currently receiving Zosyn to which both E. coli are both quite susceptible and for sure the anaerobe would be as well. Impression: Liver abscess due to ruptured appendix RECOMMENDATIONS: 1. Will continue with IV Zosyn for the time being. 2. Cipro, Flagyl will be an easy transition when it is time to switch to oral therapy, but I would continue with IV as long as she is here in the hospital. 3. Continued abdominal drainage for the time being. [facility]
[2016-10-07 20:50] VITALS: BP 119/79; PULSE 89; RESP 16; O2SAT 94
[2016-10-08] MEDS: Sodium Chloride LOK Flush 10 mL Syringe IVFLUSH SCH ×6 (00:30→18:20)
[2016-10-08] MEDS: Chlorhexidine 0.12% 15 mL Oral Solution MT SCH ×2 (00:43→04:43)
[2016-10-08] MEDS: D5 0.45% NaCl + KCl 20 mEq/L 1,000 ML IV SCH ×2 (00:43→13:48)
[2016-10-08] MEDS: Heparin 5,000 Unit/mL Inj SUBQ SCH ×2 (00:43→08:47)
[2016-10-08] MEDS: HYDROmorphone 0.5 mg/0.5 mL iSecure Syringe IVPUSH PRN ×5 (00:44→18:22)
--- NOTE | 2016-10-08 05:28 | NUR ---
Gait Patient ambulated to bathroom had unsteady gait, often leaned back nearly falling. NAC also reports swaying while standing. Patient using call light appropriately. no noted attempts to ambulate with out assistance. Spontaneously voiding 1000+. Pain management effective. Very little sleep throughout shit.
[2016-10-08 05:49] LABS: EOSINOPHILS % (AUTO) 0.3 % (0-5); MONOCYTES % (AUTO) 6.3 % (4-12); Mean Corpuscular Hemoglobin 25.5 pg (27.0-35.0); Mean Corpuscular Volume 80.8 fL (81-100); NEUTROPHILS % (AUTO) 76.7 % (40-74); Platelet Count 424 bil/L (150-400)
[2016-10-08 05:50] LABS: BASOPHILS % (AUTO) 0.4 % (0-3)
[2016-10-08 06:11] LABS: Phosphorus 2.9 mg/dL (2.5-4.9)
[2016-10-08 06:39] VITALS: BP 124/76; PULSE 71; RESP 18; O2SAT 98
--- NOTE | 2016-10-08 07:58 | PROG NOTE ---
[address] [address] PROGRESS NOTE PATIENT: PAT ZHU : 1960 MR#: [id number] ADMIT: 10/03/2016 JOB ID: [id number] DATE: 10/08/2016 SUBJECTIVE: The patient is seen in followup. She does not complain of any nausea. Her abdominal pain is well controlled. She has had no significant bowel function after being made n.p.o. yesterday. OBJECTIVE: Temperature 37.1, pulse 71, blood pressure 124/76, saturation 98% on room air. General, she is resting in bed in no acute distress. Chest is clear. Heart regular rate and rhythm, no murmurs. Abdomen is distended, firm. She has minimal tenderness to palpation. Her incisions are clean with no erythema. Her ROSSY drains have slightly cloudy fluid, output yesterday was 10 cc and 35 cc respectively. LABORATORIES: White count is 10.8, hematocrit 29.4, platelets 424. Creatinine less than 0.30. Glucose 134, procalcitonin 0.95. ASSESSMENT AND PLAN: A 56-year-old, developmentally delayed woman status post laparoscopic appendectomy for perforated appendicitis with intraabdominal abscess as well as laparoscopic drainage of liver abscess. She is doing well clinically, but has an expected postoperative ileus remaining at this point. I recommend minimal intake by mouth until she has some return of bowel function. She should do daily MiraLAX. Broad-spectrum antibiotics are being continued. Both drains should remain in place for now.
[2016-10-08] MEDS: Insulin LISPRO 300 Unit/3 mL Inj SUBQ SCH ×4 (08:00→22:00)
[2016-10-08] MEDS ORDERED: metroNIDAZOLE 250 mg Tablet PO SCH (08:30)
[2016-10-08] MEDS: Polyethylene Glycol (PEG) 17 Gm Powder PO SCH (08:30)
--- NOTE | 2016-10-08 10:27 | PCM.PNMED ---
Subjective Date of Service October 08, 2016 Subjective no BM reported maintenance IVF running pt denied pain, mildly grimaced at baseline, denied n/v Exam Vital Signs Vital Sign - Last Date Time Temp Pulse Resp B/P Pulse Ox O2 Delivery O2 Flow Rate FiO2 10/08/16 06:39 37.1 71 18 124/76 98 Room Air 10/05/16 07:03 28 Intake and Output 10/07/16 10/07/16 10/08/16 Cumulative From/Thru 15:00 23:00 07:00 10/02/16 23:14 - 10/08/16 06:39 Intake Total 1331 ml 1162 ml 58740 ml Output Total 2025 ml 1380 ml 60690 ml Balance -694 ml -218 ml 2735 ml Intake Oral 0 ml 0 ml 2378 ml IV Total 1331 ml 1162 ml 00715 ml Packed Cells 370 ml Output Urine Total 2000 ml 1350 ml 62221 ml Emesis 50 ml Drainage Total 25 ml 30 ml 815 ml Estimated Blood Loss 100 ml # Voids 2 2 # Bowel Movements 0 0 Exam mildly distressed no JVD, MMM, no LAD tachycardic, nl s1, s2 no mrg CTAB, no w,c S,less distended, mildly tender throughout, normoactive BS+, warm, no edema, pulses 2/2 IVs and Medications Medications Reviewed: Medications were reviewed in detail Lab and Diagnostics Result Diagram: 10/08/16 0501 10/08/16 0501 Microbiology Blood cultures pending X-Rays, CTs and MRIs CT abdomen Pelvis: Official report pending [place] Read: Large Heterogeneous liver mass that extends to the capsule. Crescentic shaped fluid and air collection in the subhepatic space along the right lateral abdominal wall may reflect ruptured intrahepatic mass or abscess; cannot entirely exclude abscess from tip appendicitis, though this is felt less likely. Distended urinary bladder with pelvocaliectasis bilaterally. Severe fecal loading of the colon. Possible right lower lobe pneumonia. Chest Xray portable Personal Read: Patient rotated right, trachea midline, poor inspiratory effort on film, RLL consolidation vs atelectasis, loop of fecal loaded bowel extending under left subdiaphragmatic region. Please correlate clinically Assessment & Plan Tiny Hill is a 56 year old developmentally delayed minimally verbal Mongolian speaking female who presents with a 4 day history of anorexia with increasing abdominal pain. CT imaging in the ED reveals likely hepatic abscess with concurrent fever, leukocytosis, and Tachycardia. acute, active 1. Sepsis, POA, source: intraabdominal infection with liver abscess, perforated appendix. Leukocytosis improved from 14.8 with neutrophilic predominance to 11.8 with 70.8% neutrophils, -HD stable, clinically stable, PCT trending down, remained afebrile. -continue d5 1/2NS 100cc/hr while NPO, target MAP>65 2. large hepatic abscess, complicated by perforated appendix s/p drainage by on 10/04, prelim culture showed E.coli, anaerobes -appreciate surgery follow up, increasing pain likely from ileus post-op course. no BM reported yet -Dilaudid 0.5 mg IV Q4 for pain control -s/p Vancomyci, flagyl, zosyn, now on Meropenem, appreciate abx per ID -monitor sx improvement, daily Miralex, defer further bowel regimen per surgery -NPO for now -awaits final culture results, chronic, stable 3. Developmental Delay, POA, chronic. Patient minimally verbal in Mongolian, will communicate via family -Patient is very stoic and minimally verbal so PRN pain meds will be offered Q4 4. Microcytic anemia, POA, chronicity unknown. stable, Likely anemia of chronic disease with high ferritin and low iron stores. 5. Hyperglycemia, POA, chronicity unknown. HA1c6.1, Lispro low dose correctional scale 6. Large stool burden, POA, chronicity unknown. Bowel prophylaxis with Senna and Miralax -Consider Dulcolax suppository if no BM in 24 hrs Code Status: FULL CODE, as per previous provider, Tiny voiced wanting to be allowed to pass naturally. Disposition: pending, based on surgical course diet: NPO, defer to surgery team GI Prophylaxis: H2 joshua VTE Prophylaxis: Sub-Q Enoxaparin VTE Mechanical Devices: Intermittant Pneumatic CD Resuscitation Status: CPR: Attempt Resuscitation Time spent 35min Delonte Lo MD October 08, 2016 10:27
[2016-10-08] MEDS: ERTAPENEM IV SCH ×2 (11:29)
[2016-10-08] MEDS: NS IV SCH ×2 (11:29)
[2016-10-08 13:00] VITALS: BP 108/71; PULSE 88; RESP 12; O2SAT 98
--- NOTE | 2016-10-08 15:24 | PROG NOTE ---
[address] [address] PROGRESS NOTE PATIENT: PAT ZHU : 1960 MR#: [id number] ADMIT: 10/03/2016 JOB ID: [id number] DATE: 10/08/2016 INFECTIOUS DISEASE FOLLOW UP NOTE: REASON FOR FOLLOWUP: Polymicrobial liver abscess secondary to ruptured appendix with unexplained positive amebic serology. INTERVAL HISTORY: Overnight, the patient has not had fevers, chills or sweats. She has had no pulmonary complaints. She does have some right upper quadrant pain. PHYSICAL EXAMINATION: Reveals an afebrile woman. Temperature 37, pulse 88, respiratory rate 12, blood pressure 108/71, saturating well on room air. She is in no obvious distress unless her right upper quadrant is palpated. Oral cavity negative. Lungs clear. Heart regular rate and rhythm. Abdomen with tender right upper quadrant, more so than yesterday. Two ROSSY drains are present in the right upper quadrant. LABORATORIES: Include white count 10,000, which is drifting down from yesterday, 76% segs. Creatinine stable at less than 0.3. Alk phos is up a bit to 218 which is interesting. ALT and AST continue to be normal. Urinalysis with 0-5 white cells. The amebic serology is positive. Micro studies include the two species of E. coli and Bacteroides that were found earlier. The sputum culture is negative. IMPRESSION: This patient is doing relatively well clinically but we discussed the case in person with Dr. Villatoro of Surgery today. He was unsure if there was a complete evacuation of the liver abscess or not and is curious to know the state of any possible residual abscess which could be contributing to right upper quadrant pain. At this point, her antibiotics include ertapenem which is adequate for all the organisms we found in her cultures, but we also placed her on standard doses of Flagyl for treatment of amebic liver abscess and these will be continued for a standard duration as indicated for amebic liver abscess. I actually do not think that the patient has an amebic liver abscess, but given the positive serology, I think it is incumbent upon us to give her the short course of Flagyl for the effective treatment of that if that was part of this process. Much more likely she had a ruptured appendix which led directly to her liver abscess. RECOMMENDATIONS: 1. Will continue with ertapenem and Flagyl. 2. We have ordered a CT scan with IV contrast for tomorrow to followup on the liver abscess. 3. Case discussed with Dr. Villatoro. Will continue to follow with him.
--- NOTE | 2016-10-08 15:49 | DRSVH ---
PROCEDURE: CT ABDOMEN WITH CONTRAST ([id number]) INDICATIONS: F/U liver absces TECHNIQUE: After the administration of intravenous contrast, 5 mm thick sections acquired from the diaphragm to the iliac crests. 5 mm coronal and sagittal reformats were performed. For radiation dose reduction, the following was used: automated exposure control, adjustment of mA and/or kV according to patient size. COMPARISON: [facility], CT, CT ABD PELVIS W CON, 10/03/2016, 1:11. FINDINGS: Image quality: Excellent. Lung bases: New small bilateral pleural effusions are present. There is new moderate left greater zeke n right bilateral lower lobe and right middle lobe airspace opacity, consistent with atelectasis vers us pneumonia. Heart size is normal. Solid organs: Liver and spleen are normal in size and. The inter-hepatic/perihepatic abscess within/ adjacent to the right hepatic lobe has decreased significantly in size, and contains a surgically ranulfo riaz drain at its lateral aspect. There is a residual gas and fluid collection at the posterior aspect of the right hepatic lobe measuring 59 mm transverse by 21 mm anteroposterior. There is decreased, m ild heterogeneous enhancement within the right hepatic lobe posteriorly, compatible with secondary he patitis. There are a few small fluid collections remaining within the right hepatic lobe inferiorly a nd posteriorly, largest of which measures roughly 12 mm diameter. Gallbladder is within normal limits . Biliary system is non dilated. Pancreas enhances normally. No adrenal nodules. Kidneys demonstr ate normal size and enhancement, without hydronephrosis. Peritoneum and bowel: Moderate distention of the right and transverse colon which demonstrates a lar ge amount of stool. Bowel loops demonstrate otherwise normal wall thickness and caliber. No free flu id or air. Small amount of perihepatic and perisplenic ascites. There is a moderately increased, per ipherally enhancing gas and fluid collection within the right hemiabdomen laterally, measuring 11.8 c m anteroposterior by 2.6 cm transverse. Nodes and vessels: No retroperitoneal or mesenteric adenopathy by size criteria. Aorta and inferior vena cava are normal in size. Miscellaneous: No ventral hernias. IMPRESSION: 1. Resolving intrahepatic/perihepatic abscesses within/adjacent to the right hepatic lobe posteriorly , containing surgically placed drain. 2. Increased gas/fluid collection within the right hemiabdomen laterally. 3. Small scattered residual intrahepatic abscess sees with surrounding hepatitis in the right hepatic lobe posteriorly. 4. Bilateral lower lobe atelectasis versus pneumonia with small bilateral pleural effusions. 5. Findings discussed with Dr. Todd Blue on 10.08.16 at 1547 hrs. Dictated by: Jacquie Ha M.D. on 10/08/2016 at 15:36 Approved by: Jacquie Ha M.D. on 10/08/2016 at 15:48
--- NOTE | 2016-10-08 16:12 | PCM.PNSURG ---
Subjective Date of Service: October 07, 2016 Date of Service: October 07, 2016 Visit Information: Surgical Subjective Subjective Date of Service: October 07, 2016 Date of Service: October 07, 2016 Visit Information: Reason for Visit Liver Abscess Surgery/Surgery Date Post-Op Day # 3 Date of Admission: October 03, 2016 at 03:29 Hospital Day # Subjective: Subjective: Patient is peruvian speaking however assessment coordinator states the patient feels better than yesterday. Patient states she had a BM and is passing gas however nurse does not agree with BM hx. Gastrointestinal: No N/V Pain Management: IV Push (fentanyl) Neurological: Weakness Postop Activity: Ambulating Independently (needs constant cueing) Objective Objective developmentally delayed female in mild distress Vital Sign- Last 8 Hours Date Time Temp Pulse Resp B/P Pulse Ox O2 Delivery O2 Flow Rate FiO2 10/07/16 12:23 36.8 88 18 112/72 95 Room Air 10/07/16 05:57 36.8 94 16 132/77 94 Room Air Intake and Output- Last 8 Hour 10/07/16 Cumulative From/Thru 07:00 10/02/16 23:14 - 10/07/16 06:23 Intake Total 1295 ml 84293 ml Output Total 720 ml 76136 ml Balance 575 ml 3647 ml Intake Oral 0 ml 2378 ml IV Total 1295 ml 51305 ml Packed Cells 370 ml Output Urine Total 700 ml 58708 ml Emesis 50 ml Drainage Total 20 ml 760 ml Estimated Blood Loss 100 ml # Bowel Movements 0 0 General: Cooperative, Mild Distress Lungs: Diminished Heart: Regular Rate/Rhythm Abdomen: Guarding, Distended, Other (hypoactive bowel sounds) Extremities: Warm Catheters: None Result Diagram: 10/08/16 0501 10/08/16 0501 Diagnostics: PROCEDURE: X-RAY ACUTE ABDOMINAL SERIES ([id number]) INDICATIONS: post op distention FINDINGS: Surgical changes and devices: There are 2 surgical drains projecting over the right abdomen.. Chest: Heart size is normal. There are small pleural effusions with left retrocardiac consolidation. There are also linear opacities in the right lung base likely representing atelectasis. No definite pneumoperitoneum. Abdomen: There is marked gaseous distention of the colon most prominent within the transverse colon which measures up to 8.5 cm. The colon is nondistended distal to the level of the mid descending colon. There are multiple air-fluid levels predominantly within the small bowel there Bones: No suspicious bony lesions. IMPRESSION: 1. Marked gaseous distention of the colon and multiple small bowel air-fluid levels. Findings are suggestive of a postoperative ileus given recent surgery, but a distal colonic obstruction at the level of the mid descending colon cannot be excluded. Recommend correlation clinically and a short term followup repeat study or further evaluation with CT. Additional Information: [place] [id number] [place] [address] No BM and doubtful flatus Assessment & Plan Impression slow postoperative course POD #3, status post laparoscopic appendectomy and laparoscopic drainage of liver abscess complicated by continued post op ileus Problems: Plan 1. NPO x meds 2. Consider CT if progression continues 3. am labs 4. change IVF to d51/2ns20k and increase to 100/h 5. continue PT/ambulate 6. leave drains for now Pain Management: Fentanyl IV prn VTE Prophylaxis: Sub-Q Enoxaparin Resuscitation Status: CPR: Attempt Resuscitation Pipo Dasilva PA-C October 08, 2016 16:12
--- NOTE | 2016-10-08 18:28 | NUR ---
GI pt has not passed flatus or had BM today, has some BTs, usually denies nausea but having significant pain. Abd distended and she is guarding. She did walk half loop of hallway with SBA, did not tolerate very well
[2016-10-08 19:41] VITALS: BP 114/69; PULSE 95; RESP 18; O2SAT 94
[2016-10-09] VITALS (8 sets, daily range): BP systolic 104–120; BP diastolic 67–78; PULSE 65–97; RESP 16–18; O2SAT 92–100
[2016-10-09] MEDS: D5 0.45% NaCl + KCl 20 mEq/L 1,000 ML IV SCH ×3 (00:01→14:25)
[2016-10-09] MEDS: Sodium Chloride LOK Flush 10 mL Syringe IVFLUSH SCH ×6 (00:30→16:30)
--- NOTE | 2016-10-09 00:41 | NUR ---
PAIN/ACTIVITY: Pt. has been resting in bed most of the evening, denies pain but facial expression indicated pain. Given 1 Tylenol PO. OOB to ambulate on the hallway. Ambulated to the [facility] nursing station with two person SBA then back to her room. Ambulated to the bathroom and voided upon return from ambulation. Tolerated ambulation well. NO BM, Pt. unable to tell if she is passing flatus. Abdomen is still distended with very diminished BT, NO c/o n/v/d. Pt. is alert and cooperative with care. Care is ongoing.
[2016-10-09 06:09] LABS: EOSINOPHILS % (AUTO) 0.3 % (0-5); MONOCYTES % (AUTO) 7.1 % (4-12)
[2016-10-09 06:26] LABS: BASOPHILS % (AUTO) 0.8 % (0-3); Mean Corpuscular Hemoglobin 25.5 pg (27.0-35.0); Mean Corpuscular Volume 81.4 fL (81-100); NEUTROPHILS % (AUTO) 76.4 % (40-74); Platelet Count 362 bil/L (150-400)
[2016-10-09] MEDS: Insulin LISPRO 300 Unit/3 mL Inj SUBQ SCH ×4 (07:00→22:00)
--- NOTE | 2016-10-09 07:30 | PROG NOTE ---
[address] [address] PROGRESS NOTE PATIENT: PAT ZHU : 1960 MR#: [id number] ADMIT: 10/03/2016 JOB ID: [id number] DATE: 10/09/2016 SUBJECTIVE: The patient is seen in followup. She did receive a little bit of pain medication overnight, but this morning is not complaining of pain or nausea. A CT scan was done yesterday to look for adequacy of her liver abscess drainage. The liver abscess looks markedly improved, but there is increased gas and fluid collection in the right hemiabdomen laterally, measuring 11.8 x 2.6 cm. Percutaneous drain placement has been arranged for today into that collection. OBJECTIVE: Temperature 36.6, pulse 89, blood pressure 115/73, saturation 97% on room air. General: She is resting in bed, in no acute distress. Chest is clear. Heart: Regular rate and rhythm. No murmurs. Abdomen is mildly distended but more soft and flat. Bowel tones are present. Her incisions are clean with no erythema. ROSSY drains have mostly serous output, output yesterday was 8 cc and 28 cc, respectively. LABORATORIES: White blood cell count 7.2, hematocrit 28.1, platelets 362. Chemistry is pending. ASSESSMENT AND PLAN: A 56-year-old, developmentally delayed woman, with chronic perforated appendicitis and a large right hepatic abscess, status post laparoscopic appendectomy, drainage of intra-abdominal abscess, laparoscopic drainage of liver abscess. She does have a residual fluid collection which will be drained percutaneously today. Antibiotics are being continued for fairly broad-spectrum infection with Escherichia coli and Bacteroides.
[2016-10-09] MEDS: Polyethylene Glycol (PEG) 17 Gm Powder PO SCH (08:01)
[2016-10-09] MEDS: ERTAPENEM IV SCH ×2 (08:03)
[2016-10-09] MEDS: NS IV SCH ×2 (08:03)
[2016-10-09] MEDS ORDERED: Ondansetron 2 mg/mL 2 mL Inj ONE (08:30)
[2016-10-09] MEDS ORDERED: fentaNYL-PF 50 mCg/mL 2 mL Inj ONE (08:30)
[2016-10-09] MEDS ORDERED: Propofol 10,000 mCg/mL 20 mL Inj ONE (08:30)
[2016-10-09] MEDS ORDERED: Potassium Chloride Inj 30 MEQ in Dextrose 5% 500 ML IV ONE (08:35)
--- NOTE | 2016-10-09 10:57 | PCM.PNMED ---
Subjective Date of Service October 09, 2016 Subjective Patient looked mildly uncomfortable No nausea or vomiting reported Scheduled for percutaneous drainage of remaining abscess Exam Vital Signs Vital Sign - Last Date Time Temp Pulse Resp B/P Pulse Ox O2 Delivery O2 Flow Rate FiO2 10/09/16 08:14 36.6 71 16 118/75 92 Room Air 10/05/16 07:03 28 Intake and Output 10/08/16 10/08/16 10/09/16 Cumulative From/Thru 15:00 23:00 07:00 10/02/16 23:14 - 10/09/16 05:43 Intake Total 0 ml 2290 ml 51024 ml Output Total 2106 ml 1910 ml 89328 ml Balance -2106 ml 380 ml 1009 ml Intake Oral 0 ml 0 ml 2378 ml IV Total 2290 ml 97030 ml Packed Cells 370 ml Output Urine Total 2100 ml 1900 ml 76819 ml Emesis 50 ml Drainage Total 6 ml 10 ml 831 ml Estimated Blood Loss 100 ml # Voids 2 # Bowel Movements 0 0 0 Exam mildly distressed no JVD, MMM, no LAD tachycardic, nl s1, s2 no mrg CTAB, no w,c S,less distended, mildly tender throughout, normoactive BS+, warm, no edema, pulses 2/2 IVs and Medications Medications Reviewed: Medications were reviewed in detail Lab and Diagnostics Result Diagram: 10/09/1654410/09/16544 Microbiology Blood cultures pending X-Rays, CTs and MRIs CT abdomen Pelvis: Official report pending [place] Read: Large Heterogeneous liver mass that extends to the capsule. Crescentic shaped fluid and air collection in the subhepatic space along the right lateral abdominal wall may reflect ruptured intrahepatic mass or abscess; cannot entirely exclude abscess from tip appendicitis, though this is felt less likely. Distended urinary bladder with pelvocaliectasis bilaterally. Severe fecal loading of the colon. Possible right lower lobe pneumonia. Chest Xray portable Personal Read: Patient rotated right, trachea midline, poor inspiratory effort on film, RLL consolidation vs atelectasis, loop of fecal loaded bowel extending under left subdiaphragmatic region. Please correlate clinically Assessment & Plan Tiny Hill is a 56 year old developmentally delayed minimally verbal Greenlandic speaking female who presents with a 4 day history of anorexia with increasing abdominal pain. CT imaging in the ED reveals likely hepatic abscess with concurrent fever, leukocytosis, and Tachycardia. acute, active 1. Sepsis, POA, source: intraabdominal infection with liver abscess, perforated appendix. Leukocytosis improved from 14.8 with neutrophilic predominance to 11.8 with 70.8% neutrophils, -HD stable, clinically stable, PCT trending down, remained afebrile. -continue d5 1/2NS 100cc/hr while NPO, target MAP>65 2. large hepatic abscess, complicated by perforated appendix s/p drainage by on 10/04, prelim culture showed E.coli, anaerobes. Repeat abd CT10/08 showed Small scattered residual intrahepatic abscess sees with surrounding hepatitis in the right hepatic lobe posteriorly. -appreciate surgery follow up, percutaneous drainage planned today -Dilaudid 0.5 mg IV Q4 for pain control -s/p Vancomyci, flagyl, zosyn, Meropenem, currently ertapenem, flagyl, appreciate abx per ID -monitor sx improvement, daily Miralex, defer further bowel regimen per surgery -NPO for now -awaits final culture results, chronic, stable 3. Developmental Delay, POA, chronic. Patient minimally verbal in Greenlandic, will communicate via family -Patient is very stoic and minimally verbal so PRN pain meds will be offered Q4 4. Microcytic anemia, POA, chronicity unknown. stable, Likely anemia of chronic disease with high ferritin and low iron stores. 5. Hyperglycemia, POA, chronicity unknown. HA1c6.1, Lispro low dose correctional scale 6. Large stool burden, POA, chronicity unknown. Bowel prophylaxis with Senna and Miralax -Consider Dulcolax suppository if no BM in 24 hrs Code Status: FULL CODE, as per previous provider, Tiny voiced wanting to be allowed to pass naturally. Disposition: pending, based on surgical course diet: NPO, defer to surgery team GI Prophylaxis: H2 joshua VTE Prophylaxis: Sub-Q Enoxaparin VTE Mechanical Devices: Intermittant Pneumatic CD Resuscitation Status: CPR: Attempt Resuscitation Time spent 35min Delonte Lo MD October 09, 2016 10:57
--- NOTE | 2016-10-09 11:34 | PROG NOTE ---
[address] [address] PROGRESS NOTE PATIENT: PAT ZHU : 1960 MR#: [id number] ADMIT: 10/03/2016 JOB ID: [id number] DATE: 10/09/2016 INFECTIOUS DISEASE FOLLOW UP NOTE: REASON FOR FOLLOW UP: Large hepatic abscess with associated abdominal perihepatic abscess in a patient with ruptured appendix as well as a confusing positive amebic serology. INTERVAL HISTORY: Recall that yesterday we obtained a CT scan and followup of the patient's hepatic abscess. It showed that the intrahepatic abscess had largely resolved. It was a perihepatic expanding abscess cavity. After discussion with the surgeon, Dr. Villatoro, as well as Dr. Ha of Interventional Radiology, it was decided that a percutaneous drain should be placed into this remaining and expanding perihepatic fluid collection and this will be done later today. For her part, the patient has increasing right upper quadrant pain and tenderness especially with movement or palpation. She does not have fevers, chills or sweats nor does she have any respiratory symptoms at this point. PHYSICAL EXAMINATION: Reveals an uncomfortable woman. Temperature 36.6, pulse 71, respiratory rate 16, blood pressure 118/75, saturating well on room air. She is in obvious pain though apparently not severe though it is difficult to tell and she is very stoic and also has the developmental delay. The patient's eyes without scleral icterus. Lungs clear. Cardiac tones: No change. Abdomen: Right upper quadrant pain as was expressed in the subjective part of this note. LABORATORY STUDIES: Include white count down to 7200 which is gratifying. There is also an improvement in her differential white blood count, a creatinine less than 0.3. Her alk phos is declining somewhat 197. ALT and AST are quite normal. Recall that she did have the positive amebic serology of unknown chronicity. Her cultures from the liver abscess grew two strains of E. coli as well as Bacteroides fragilis for which she is being treated with ertapenem and she is also on oral Flagyl for the possibility of amebiasis. IMPRESSION: This patient presented with a truly enormous liver abscess after what appears to be a chronically ruptured appendix. She has done well after her initial surgical washout and drainage of the liver abscess but now has an expanding fluid collection as was identified by yesterday's CT scan. This situation demands additional drainage either by IR or by General Surgery and a very long course of antibiotics will undoubtedly be required in this complex case. We also plan to complete the standard course of therapy for amebic liver abscess. RECOMMENDATIONS: 1. Will continue with IV ertapenem. 2. Will continue to complete our course of oral Flagyl for the amebic serology which is positive. 3. Today the patient will be having IR drainage. Will continue to follow with you.
--- NOTE | 2016-10-09 11:47 | NUR ---
NUTRITION FOLLOW UP: ASSESS: 56 YO developmentally delayed female admitted with sepsis, intraabdominal infection with liver abscess and perforated appendix; POD #5 following laparoscopic appendectomy and laparoscopic drainage of abscess. Pt has been NPO x5 days. She is to have percutaneous drainage planned today. Pt has not had a BMx6 days. PMHx: Profound developmental delay, early dementia. DIET: NPO (x2d). Noted pt was on soft diet per RN swallow screen LABS: K 3.3, Bun 2, Telecommunication Engineer .3, Glu 133, Ca 8.1, Alkphos 197, alb 2.0 MEDICATIONS: Reviewed. Pt has not been receiving bowel meds due to NPO status. GI symptoms / stool: 0 BM Skin Integrity: No issues reported. ANTHROPOMETRICS: Current Wt: 54.3 kg BMI: 20.5 kg/m2. Admit weight: 52.2 kg. IBW: 54.5 kg ESTIMATED NEEDS: Calories: 1360 - 1630 kcal (25 - 30 kcal / kg BW) Protein: 55 - 65 g protein (1.0 - 1.2 g / kg BW) NUTRITION DIAGNOSIS: 1) Chewing / swallowing difficulties of unknown etiology, as evidenced by family notation of dysphagia history.--PERSISTS 2) Inadequate oral intake related to altered GI tract function as evidenced by NPO x 4 days status.--PERSISTS INTERVENTION: 1) Recommend advance diet within next 24 hrs. If pt requires prolonged NPO Status, recommend nutrition support be considered. MONITOR/EVALUATE: NPO status, nutrition support?, wt, labs, GI/nutrition status. Follow up per high nutrition risk guidelines.
--- NOTE | 2016-10-09 12:19 | NUR ---
Off unit To CT via bed for drain placement. Report given to Carissa. jean claude Sewell and OZIEL, at bedside.
[2016-10-09] MEDS ORDERED: Lactated Ringer's 1,000 ML IV SCH (13:46)
[2016-10-09] MEDS ORDERED: Lactated Ringer's 500 ML IV PRN (13:46)
--- NOTE | 2016-10-09 13:46 | PCM.HPANE ---
Patient Data Date of Service: October 09, 2016 Surgeon Admitting Provider:Lurdes Stuart DO Attending Provider:Lurdes Stuart DO Primary Care Physician:Sergio Other Provider:Anabella Pierre Anesthesia Reason for Visit Liver Abscess Ht/WT & BMI Height (Feet): 5 Height (Inches): 4.00 Weight (Kilograms): 54.300 Body Mass Index 19.68 Allergies Coded Allergies: No Known Allergies (Unverified , 10/02/16) Past Anesthesia History Anesthesia History: Denies:: Abnormal Airway, Anesthesia Reactions Diabetes History Hx Diabetes?: No Current Bedside Blood Glucose: 131 Medications Hypertension Medication: No Home Meds Incl Beta Bianca: No No Active Prescriptions or Reported Meds History History of ENT Problems?: No HEENT History: Denies:: Abnormal Airway Denture Type: None Teeth Condition: Tooth Decay Hx of Heart Problems?: No Cardiovascular History: Denies:: Congestive Heart Failure Hypertension Hx of Respiratory Problem?: No Respiratory History: Denies:: Tuberculosis Hx Neurologic Problems?: Yes Neurological History: Positive for:: Dementia Other Neurological Pertinent: developmentally delayed Hx of GI Problems?: No Hx of Problems?: No Hx Musculoskeletal Problems?: No Hx Surgeries?: No History Blood Transfusions: Denies:: Blood Transfuse Reaction Blood Transfusions Hx Diabetes: NoBedside Blood Glucose: 131 Hx Alcohol Use: NoHx Substance Use: No Smoking Status: Unknown if Ever Smoker Stop/Bang Treated for Sleep Apnea?: No Do You Have a CPAP Machine?: No S-Snoring: Do You Snore Loudly: No T-Tired: feel tired, fatigued: No O-Obsered: Observed not breath: No P-Blood Pressure: treated: No B- Body Mass Index > 35 kg/m2: No A- Age over 50: Yes N- Neck Large Circumference: No G- Gender Male: No JOCELIN Total Score: 0 JOCELIN Risk Assessment: Low Risk, <3 Yes Risk Assessment Category Category 1A: Patient has history of documented sleep apnea, and HAS NOT received any narcotic, sedative or anesthesia administration during this stay. Category 1B: Patient has history of documented sleep apnea, and HAS received any narcotic , sedative or anesthesia administration during this stay Category 2: Patient has SUSPECTED Obstructive Sleep Apnea, and HAS received any narcotic , sedative or anesthesia administration during this stay. Category 3: Patient has SUSPECTED Obstructive Sleep Apnea and HAS NOT received narcotic, sedative or anesthesia administration during this stay. Category 4: Outpatient in Procedural Areas with known sleep apnea or who screen positive for High Risk via the STOP/BANG questionnaire. Exam Exam Vital Signs Vital Signs Date Time Temp Pulse Resp B/P Pulse Ox O2 Delivery O2 Flow Rate FiO2 10/09/16 08:14 36.6 71 16 118/75 92 Room Air 10/09/16 05:00 Ventilator 10/09/16 04:10 36.6 89 16 115/73 97 Room Air General Appearance: Alert, Cooperative, No Acute Distress HEENT/AIRWAY: MP 2 Lungs: Diminished Heart: Regular Rate/Rhythm Meds/Labs/Diagnostics Admission Meds Current Medications Potassium Chloride/Dextrose/ Water (Potassium Chloride Inj/D5W) 515 ml @ 171.667 mls/hr Q3H ONCE IV Last administered on 10/09/16t 09:46; Start at 08:35; Stop 10/09/16 at 11:34; Status DC Bedside Blood Glucose: 131 Labs Test 10/02/16 00:10 10/03/16 00:10 10/03/16 01:50 10/03/16 04:47 Lipase 40U/L (13-60) Hemoglobin A1c 6.1% (4.8-5.6) Iron Level 8ug/dL (35-150) Total Iron Binding Capacity ug/dL (250-450) Percent Iron Saturation 32%sat (15-50) Unsaturated Iron Binding < 16.8ug/dL Urine Color Yellow (YELLOW) Urine Appearance Clear (CLEAR,HAZY) Urine pH 7.0 (5.0-8.0) Urine Specific [place] 1.028 (1.003-1.035) Urine Protein Negativemg/dL (NEG,TRACE) Urine Glucose (UA) Negativemg/dL (NEGATIVE) Urine Ketones Negativemg/dL (NEGATIVE) Urine Occult Blood Moderate (NEGATIVE) Urine Nitrite Negative (NEGATIVE) Urine Bilirubin Negative (NEGATIVE) Urine Urobilinogen 2.0mg/dL (NORMAL) Urine Leukocyte Esterase Negative (NEGATIVE) Urine RBC 11-50/hpf (0-2) Urine WBC 0-5/hpf (0-5) Urine Epithelial Cells Moderate/hpf (NONE-MOD) Urine Crystals None seen (NONE SEEN) Urine Bacteria Few/hpf (NONE-FEW) Urine Hyaline Casts None/lpf (NONE) Urine Granular Casts None seen (NONE SEEN) Urine Waxy Casts None seen (NONE SEEN) Urine Red Blood Cell Casts None seen (NONE SEEN) Urine White Blood Cell Casts None seen (NONE SEEN) Urine Mucus None seen (None Seen) Urine Trichomonas None seen (NONE SEEN) Urine Yeast None (NONE SEEN) Urinalysis Comment None Urine Culture Reflexed Not indicated Hematology Comments Ferritin 289ng/mL (13-150) Test 10/04/16 03:55 10/04/16 21:24 10/06/16 08:00 10/08/16 05:01 Tumor Marker Alpha Fetoprotein 1.8ng/mL (0.0-8.3) Amebiasis Antibody Positive (Negative) Band Neutrophils % 9% (1-5) Lactic Acid Level 1.9mmol/L (0.4-2.0) Direct Bilirubin 0.2mg/dL (0.0-0.3) Phosphorus Level 2.9mg/dL (2.5-4.9) Magnesium Level 2.0mg/dL (1.6-2.6) Test 10/09/16 05:45 10/09/16 09:55 White Blood Count 7.2th/mm3 (3.8-10.1) Red Blood Count 3.45mil/mm3 (3.90-5.20) Hemoglobin 8.8g/dL (12.0-15.6) Hematocrit 28.1% (35.0-46.0) Mean Corpuscular Volume 81.4fL (81-100) Mean Corpuscular Hemoglobin 25.5pg (27.0-35.0) Mean Corpuscular Hemoglobin Concent 31.3% (32.0-37.0) Red Cell Distribution Width 16.6% (12.3-15.4) Platelet Count 362bil/L (150-400) Neutrophils (%) (Auto) 76.4% (40-74) Lymphocytes (%) (Auto) 14.7% (14-46) Monocytes (%) (Auto) 7.1% (4-12) Eosinophils (%) (Auto) 0.3% (0-5) Basophils (%) (Auto) 0.8% (0-3) Sodium Level 141mEq/L (134-144) Potassium Level 3.3mEq/L (3.5-5.2) Chloride Level 105mEq/L (97-108) Carbon Dioxide Level 25mmol/L (18-29) Blood Urea Nitrogen 2mg/dL (6-24) Creatinine < 0.30mg/dL (0.57-1.00) Estimat Glomerular Filtration Rate 332mL/min (>59) Glucose Level 133mg/dL (60-99) Calcium Level 8.1mg/dL (8.5-10.1) Total Bilirubin 0.2mg/dL (0.0-1.2) Aspartate Amino Transf (AST/SGOT) 20U/L (0-50) Alanine Aminotransferase (ALT/SGPT) 12U/L (0-32) Alkaline Phosphatase 197U/L (25-150) Total Protein 6.0g/dL (6.4-8.4) Albumin 2.0g/dL (3.4-5.0) Procalcitonin 0.46ng/mL (0.00-0.08) Prothrombin Time 10.7sec (8.1-12.5) Prothromb Time International Ratio 1.00ratio Activated Partial Thromboplast Time 27.2sec (22.8-33.0) Plan Impression Patient chart reviewed, patient interviewed and anesthestic plan with risks, benefits, and alternatives discussed, and informed consent obtained. ASA Physical Status: ASA2 Mod Systemic Disease Anesthetic Plan: GA Bene/Risks/Altern/Consents: Yes (consent from cousin (POA)) HP Complete Prior to Induction: Yes Jef Bell MD October 09, 2016 12:01
[2016-10-09] MEDS ORDERED: Ondansetron 2 mg/mL 2 mL Inj IVPUSH PRN (13:50)
[2016-10-09] MEDS ORDERED: HYDROmorphone 1 mg/mL Inj IVPUSH PRN (13:50)
[2016-10-09] MEDS ORDERED: fentaNYL-PF 50 mCg/mL 2 mL Inj IVPUSH PRN (13:50)
[2016-10-09] MEDS ORDERED: MetoCLOpramide 5 mg/mL 2 mL Inj IVPUSH PRN (13:50)
[2016-10-09] MEDS ORDERED: EPHEDrine Sulfate 50 mg/mL Inj IVPUSH PRN (13:50)
[2016-10-09] MEDS ORDERED: Phenylephrine 10,000 mCg/mL Inj IVPUSH PRN (13:50)
[2016-10-09] MEDS ORDERED: Dexamethasone 4 mg/mL Inj IVPUSH PRN (13:50)
--- NOTE | 2016-10-09 14:07 | NUR ---
Social Work: Continued Discharge Planning D: EMR reviewed. ID note reviewed 10/09 - please see ID note. Pt is on day 6 of hospitalization. Pt has developmental disability and dementia at baseline. Pt lives at home with 24/ caregiver (cousin, OZIEL, Melodie Marvin [phone]). 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 Pt may need infusion services if pt leaves on IVABX. SW attempted to visit pt and caregiver in room but pt was out for IR drain. SW placed T/C to caregiver with no answer. SW to continue to follow and R/O potential for infusion services. SW to follow-up with MD and ID to determine if pt will leave on POABX or IVABX. A: Pt who has developmental disability and dementia at baseline. Pt for whom intermediate school teacher ABX have been deemed medically necessary. P: SW to follow-up with MD and ID to determine if pt will leave hospital on IVABX. SW to contact pt's caregiver if infusion services deemed necessary after discharge. SW will continue to follow to R/O services. ADEEL Fortune
--- NOTE | 2016-10-09 14:22 | NUR ---
stable and alert post drain placement, report called to shaw Balderrama.
--- NOTE | 2016-10-09 14:29 | NUR ---
Post Op Returned to [facility] room 1009 via bed at 14:20. Alert and oriented, denies pain and nausea. New drain with minimal sero-sand fluid. Report received from Cristiane Cordoba.
--- NOTE | 2016-10-09 15:18 | DRSVH ---
PROCEDURE: 1. CT abscess drain placement 2. Sedation was administered by the Department of Anesthesia INDICATIONS: ABSCESS COMPARISON: [facility], CT, CT ABD W CON, 10/08/2016, 15:04. TECHNIQUE: Informed, written consent from the patient was obtained prior to the procedure. Patient wa s brought to the CT suite. Maximal sterile barrier technique, hand hygiene, skin preparation, and ajay rile ultrasound technique (if ultrasound was utilized) was followed. A mask, sterile gown, sterile gl oves, a large sterile sheet, hand hygiene, and 2% chlorhexidine or iodine was utilized for skin antis epsis. CT imaging of the right flank abscess was performed with overlying localization grid. The appropriate cutaneous site for percutaneous access to the right flank abscess was marked, prepped and draped sterilely, and infused with lidocaine. Under CT guidance, an 18 gauge Chiba needle was advanced into the abscess cavity, through which an 035 J-wire was advanced, over which sequential dilators were placed, followed by advancement of an 8 Israeli pigtail drainage catheter. Catheter was then fastened to the skin surface. FINDINGS: At the conclusion of the procedure, the pigtail of the drainage catheter is within the abscess cavity. IMPRESSION: 8 Israeli percutaneous pigtail drainage of right flank abscess Dictated by: Keiko Lagos M.D. on 10/09/2016 at 15:13 Approved by: Keiko Lagos M.D. on 10/09/2016 at 15:16
--- NOTE | 2016-10-09 15:52 | PCM.ANEP1 ---
Post Anesthesia Phase 1 PACU Phase 1 Assessment Date of Service: October 09, 2016 Vital Signs Vital Signs Date Time Temp Pulse Resp B/P Pulse Ox O2 Delivery O2 Flow Rate FiO2 10/09/16 14:35 36.9 88 16 120/77 99 Room Air 10/09/16 14:00 36.4 65 16 107/68 100 Room Air 10/09/16 13:45 36.4 70 16 104/68 100 Room Air 10/09/16 13:30 36.4 66 16 107/67 100 Room Air 10/09/16 12:01 37.0 66 16 114/78 100 Room Air 10/09/16 11:58 Room Air 10/09/16 08:14 36.6 71 16 118/75 92 Room Air Anesthetic Administered: GA Level of Alertness: Awake, talking JARAMILLO's with Equal Strength: Yes Pain: No Nausea or Vomiting: No Oxygen Delivery: Nasal Cannula Lungs: Normal Air Movement Dermatome Level: Full Sensation Complications: No Follow up Care: No Comments VSS see nurses notes Jef Bell MD October 09, 2016 15:52
[2016-10-10] MEDS: Sodium Chloride LOK Flush 10 mL Syringe IVFLUSH SCH ×6 (00:30→15:46)
[2016-10-10] MEDS: D5 0.45% NaCl + KCl 20 mEq/L 1,000 ML IV SCH ×3 (00:45→21:50)
--- NOTE | 2016-10-10 02:12 | NUR ---
ACTIVITY: Pt. was sitting in her chair in her room during my first assessment. Later on she requested help to go to bed, done as requested. Pt. has been in bed resting through the night. Invited to go for a walk but pt. chose to stay in bed at this time, due to feeling tired. New drain on right flank draining creamy output. On going care.
[2016-10-10] MEDS: HYDROmorphone 0.5 mg/0.5 mL iSecure Syringe IVPUSH PRN (05:03)
[2016-10-10 05:29] VITALS: BP 111/74; PULSE 90; RESP 16; O2SAT 96
[2016-10-10 06:34] LABS: BASOPHILS % (AUTO) 0.8 % (0-3); EOSINOPHILS % (AUTO) 0.8 % (0-5); MONOCYTES % (AUTO) 8.5 % (4-12); Mean Corpuscular Hemoglobin 25.4 pg (27.0-35.0); Mean Corpuscular Volume 82.3 fL (81-100); NEUTROPHILS % (AUTO) 73.8 % (40-74); Platelet Count 371 bil/L (150-400)
[2016-10-10 07:00] LABS: Phosphorus 3.4 mg/dL (2.5-4.9)
[2016-10-10] MEDS: Insulin LISPRO 300 Unit/3 mL Inj SUBQ SCH (07:30)
[2016-10-10] MEDS: Polyethylene Glycol (PEG) 17 Gm Powder PO SCH ×3 (08:07→20:14)
[2016-10-10 09:06] VITALS: BP 108/72; PULSE 93; RESP 18; O2SAT 97
[2016-10-10] MEDS: NS IV SCH ×2 (09:28)
[2016-10-10] MEDS: ERTAPENEM IV SCH ×2 (09:28)
--- NOTE | 2016-10-10 09:50 | PROG NOTE ---
[address] [address] PROGRESS NOTE PATIENT: PAT ZHU : 1960 MR#: [id number] ADMIT: 10/03/2016 JOB ID: [id number] DATE: 10/10/2016 SUBJECTIVE: The patient is seen in followup. She is doing well. She is not complaining of abdominal pain this morning. She underwent percutaneous drain placement yesterday of right-sided fluid collection which is draining some purulent fluid. She has no nausea. OBJECTIVE: Temperature 37.0, pulse 90, blood pressure 111/74, saturation 96% on room air. In general, resting in bed and in no acute distress. Abdomen is soft, nondistended. Bowel tones are present. Her incisions are clean with no erythema. The new pigtail drain has purulent fluid. The other surgical ROSSY drains have fairly clear serous fluid. LABORATORIES: White blood cell count 7.4, hematocrit 27.9, platelets 371. Creatinine less than 0.30, glucose 120. ASSESSMENT AND PLAN: A 56-year-old, developmentally delayed woman with chronic perforated appendicitis with liver abscess, status post laparoscopic appendectomy and laparoscopic drainage of liver abscess, with subsequent percutaneous drainage of her residual intra-abdominal abscess. She is doing well clinically. Her diet will be advanced. I think her surgical drains could be removed soon, first the lower abdominal drain, and then subsequently the liver drain. Antibiotics will be continued.
--- NOTE | 2016-10-10 10:57 | PCM.PNMED ---
Subjective Date of Service October 10, 2016 Subjective Patient underwent drainage per IR, tolerated well purulent discharge noted on bag remained stable, looked more comfortable denied pain, eating well no BM reported Exam Vital Signs Vital Sign - Last Date Time Temp Pulse Resp B/P Pulse Ox O2 Delivery O2 Flow Rate FiO2 10/10/16 09:06 36.8 93 18 108/72 97 Room Air 10/05/16 07:03 28 Intake and Output 10/09/16 10/09/16 10/10/16 Cumulative From/Thru 15:00 23:00 07:00 10/02/16 23:14 - 10/10/16 06:31 Intake Total 1369 ml 1083 ml 00291 ml Output Total 2750 ml 1250 ml 58243 ml Balance -1381 ml -167 ml -539 ml Intake Oral 0 ml 0 ml 2378 ml IV Total 1369 ml 1083 ml 90086 ml Packed Cells 370 ml Output Urine Total 2750 ml 1200 ml 32608 ml Emesis 50 ml Drainage Total 0 ml 50 ml 881 ml Estimated Blood Loss 100 ml # Voids 1 3 # Bowel Movements 0 0 Exam mildly distressed no JVD, MMM, no LAD tachycardic, nl s1, s2 no mrg CTAB, no w,c S,less distended, mildly tender throughout, hypoactive BS+, warm, no edema, pulses 2/[address], two ROSSY no output, percutaneous drainage-purulent discharge Lab and Diagnostics Result Diagram: 10/10/16 0558 10/10/16 0558 Microbiology Blood cultures pending X-Rays, CTs and MRIs CT abdomen Pelvis: Official report pending [place] Read: Large Heterogeneous liver mass that extends to the capsule. Crescentic shaped fluid and air collection in the subhepatic space along the right lateral abdominal wall may reflect ruptured intrahepatic mass or abscess; cannot entirely exclude abscess from tip appendicitis, though this is felt less likely. Distended urinary bladder with pelvocaliectasis bilaterally. Severe fecal loading of the colon. Possible right lower lobe pneumonia. Chest Xray portable Personal Read: Patient rotated right, trachea midline, poor inspiratory effort on film, RLL consolidation vs atelectasis, loop of fecal loaded bowel extending under left subdiaphragmatic region. Please correlate clinically Assessment & Plan Tiny Hill is a 56 year old developmentally delayed minimally verbal Moh[place] speaking female who presents with a 4 day history of anorexia with increasing abdominal pain. CT imaging in the ED reveals likely hepatic abscess with concurrent fever, leukocytosis, and Tachycardia. acute, active 1. Sepsis, POA, source: intraabdominal infection with liver abscess, perforated appendix. Leukocytosis improved from 14.8 with neutrophilic predominance to 11.8 with 70.8% neutrophils, -HD stable, clinically stable, PCT trending down, remained afebrile. -continue d5 1/2NS 100cc/hr, decrease rate to 80cc give po intake, -abx as below 2. large hepatic abscess, complicated by perforated appendix s/p drainage by on 10/04, prelim culture showed E.coli, anaerobes. Repeat abd CT10/08 showed Small scattered residual intrahepatic abscess sees with surrounding hepatitis in the right hepatic lobe posteriorly. s/p percutaneous drainage 10/09 by IR, successful, tolerated well. Tissue cultures 10/04 showed E.coli sensitive to carbapenem, anaerobes -appreciate surgery follow up, -tylenol, Dilaudid 0.5 mg IV Q4 for pain control -s/p Vancomyci, flagyl, zosyn, Meropenem, currently ertapenem, flagyl, appreciate abx per ID severe ileus, POA, in the setting of acute intraabdominal infection, opioid use , no reported BM -increased bowel regimen to Miralex bid, senna bid, added colace, enema as needed -advanced diet to soft, chronic, stable 3. Developmental Delay, POA, chronic. Patient minimally verbal in [place], appreciate Cousin to communicate. 4. Microcytic anemia, POA, chronicity unknown. stable, Likely anemia of chronic disease with high ferritin and low iron stores. 5. Hyperglycemia, POA, chronicity unknown. HA1c6.1, no fsg checking, stop lispro Code Status: FULL CODE, as per previous provider, Tiny voiced wanting to be allowed to pass naturally. Disposition: pending, likely 3-4more days, home with 24/7 care diet: soft, advance as tolerate GI Prophylaxis: H2 joshua VTE Prophylaxis: Sub-Q Enoxaparin VTE Mechanical Devices: Intermittant Pneumatic CD Resuscitation Status: CPR: Attempt Resuscitation Time spent 35min Delonte Lo MD October 10, 2016 10:41
--- NOTE | 2016-10-10 11:55 | NUR ---
BM Large, formed BM at 11:55.
[2016-10-10 13:25] VITALS: BP 112/72; PULSE 96; RESP 18; O2SAT 98
--- NOTE | 2016-10-10 13:29 | NUR ---
NUTRITION FOLLOW UP: ASSESS: 56 YO developmentally delayed female admitted with sepsis, intraabdominal infection with liver abscess and perforated appendix; POD #6 following laparoscopic appendectomy and laparoscopic drainage of abscess. Pt had percutaneous drain placed 10/09. Diet was advanced to soft today and pt had fist BM in 7 days. PMHx: Profound developmental delay, early dementia. DIET: Soft. No PO recorded yet LABS: Bun 3, precision machinist <.3, Glu 120, Ca 7.8, alk phos 185, alb 1.9 MEDICATIONS: Reviewed. madhav Wu GI symptoms / stool: BMx1 10/10 Skin Integrity: No issues reported. ANTHROPOMETRICS: Current Wt: 54.6 kg BMI: 20.7 kg/m2. Admit weight: 52.2 kg. IBW: 54.5 kg ESTIMATED NEEDS: Calories: 1360 - 1630 kcal (25 - 30 kcal / kg BW) Protein: 55 - 65 g protein (1.0 - 1.2 g / kg BW) NUTRITION DIAGNOSIS: 1) Chewing / swallowing difficulties of unknown etiology, as evidenced by family notation of dysphagia history.--PERSISTS 2) Inadequate oral intake related to altered GI tract function as evidenced by NPO x 4 days status.--IMPROVING INTERVENTION: 1) Continue current diet. Will monitor for PO intake/tolerance MONITOR/EVALUATE: PO, wt, labs, GI/nutrition status. Follow up per moderate nutrition risk guidelines.
--- NOTE | 2016-10-10 14:18 | PROG NOTE ---
[address] [address] PROGRESS NOTE PATIENT: PAT ZHU : 1960 MR#: [id number] ADMIT: 10/03/2016 JOB ID: [id number] DATE: 10/10/2016 INFECTIOUS DISEASE FOLLOWUP NOTE: REASON FOR FOLLOWUP: Ruptured appendix with resultant large hepatic abscess and intra-abdominal abscess. INTERVAL HISTORY: Over the past 24 hours, the patient has been relatively stable. She underwent the placement of three new percutaneous drains in her right flank for drainage of a residual extrahepatic abscess. The patient tolerated these procedures surprisingly well and today, has no complaints. No fevers. No chills. No shortness of breath. No abdominal pain. PHYSICAL EXAMINATION: Reveals an afebrile woman. Temp 36.8, pulse 93, respiratory rate 18, blood pressure 108/72, saturating well on room air. She is in no obvious distress. The lungs are clear. Cardiac tones: Regular rate and rhythm. Abdomen: Minimal right upper quadrant fullness, and presence of three drains. Otherwise, no skin rash. No other abnormalities. LABORATORIES: Include a white count now normal at 7400. Completely normal diff. Creatinine less than 0.3. Alk phos 185. AST and ALT normal. Procalcitonin is dropping steadily. It was 1.6. Now down to 0.46. Micro cultures, of course, from the original drainage of the abscess, two species of E. coli plus Bacteroides fragilis. IMPRESSION: This patient is doing well after additional drainage of the extrahepatic portions of her large abdominal abscess due to a ruptured appendix. She also has a positive amebic serology, which is confounding. So, we are going ahead and treating that without much enthusiasm. RECOMMENDATIONS: 1. Will continue with Flagyl for a full course of seven days at 750 mg p.o. t.i.d. to resolve the amebiasis issue. 2. Will continue with IV ertapenem 1 g once a day for liver abscess. 3. Will continue to closely follow this interesting patient with you.
--- NOTE | 2016-10-10 14:43 | NUR ---
spiritual care: routine pt agreeable for eucharistic visit. will plan to follow as needed.
--- NOTE | 2016-10-10 17:39 | NUR ---
GI Large formed BM as previously noted. Advanced to soft diet, tolerates mac& cheese, juice, etc with no complaints of nausea or abd pain. Abd round, seems less distended than yesterday. Bowel tones present in all quadrants. T drain flushed, draining purulent fluid. 2 ROSSY drains with minimal serous fluid. Pt OOB multiple times to chair, bathroom and ambulating in le.
[2016-10-10 19:56] VITALS: BP 107/66; PULSE 92; RESP 16; O2SAT 97
[2016-10-11] MEDS: Sodium Chloride LOK Flush 10 mL Syringe IVFLUSH SCH ×6 (00:30→16:30)
--- NOTE | 2016-10-11 03:13 | NUR ---
Activity/Pain Pt up in recliner at start of shift eating. tolerated PO intake well. Bedrest for rest of shift. Pt reports no pain when asked, no obvious signs/symptoms of pain. T tube has yellow purulent drainage, 2 J tubes with very minimal amount of serosanguineous drainage. Addendum: 10/11/16 at 0623 by CELIO CARVAJAL RN Went to check on Pt found she had tears in her eyes and a deep furrow, when asked Pt said yes to pain this time. Administered dilaudid 0.5mg with + results
[2016-10-11] MEDS: HYDROmorphone 0.5 mg/0.5 mL iSecure Syringe IVPUSH PRN ×2 (04:53→14:48)
[2016-10-11 05:00] VITALS: BP 116/76; PULSE 91; RESP 16; O2SAT 95
[2016-10-11 05:36] LABS: BASOPHILS % (AUTO) 0.6 % (0-3); EOSINOPHILS % (AUTO) 0.9 % (0-5); MONOCYTES % (AUTO) 7.9 % (4-12); Mean Corpuscular Hemoglobin 25.4 pg (27.0-35.0); Mean Corpuscular Volume 82.1 fL (81-100); Platelet Count 366 bil/L (150-400)
[2016-10-11] MEDS: NS IV SCH ×2 (08:43)
[2016-10-11] MEDS: ERTAPENEM IV SCH ×2 (08:43)
[2016-10-11] MEDS: Polyethylene Glycol (PEG) 17 Gm Powder PO SCH ×2 (08:44→21:52)
[2016-10-11] MEDS ORDERED: 0.9% Sodium Chloride 250 ML ONE (08:54)
--- NOTE | 2016-10-11 09:54 | PROG NOTE ---
[address] [address] PROGRESS NOTE PATIENT: PAT ZHU : 1960 MR#: [id number] ADMIT: 10/03/2016 JOB ID: [id number] DATE: 10/11/2016 SUBJECTIVE: The patient is seen in followup. She is doing well clinically. She has no nausea. She is not complaining of abdominal pain. OBJECTIVE: Temperature 36.5, pulse 91, blood pressure 116/76, saturation 95% on room air. General: She is sitting up in bed, in no acute distress. Abdomen is soft, nondistended. Her pigtail drain has purulent fluid. Both ROSSY drains from surgery have scant serous fluid. The suprapubic drain was removed which was the drain in the appendiceal fossa. LABORATORIES: White blood cell count 8.6, hematocrit 28.5, platelets 366, creatinine less than 0.30. Glucose 114, albumin 2.0. ASSESSMENT AND PLAN: A 56-year-old developmentally delayed woman with chronic perforated appendicitis with intra-abdominal abscess and liver abscess, status post laparoscopic appendectomy and laparoscopic drainage of liver abscess. She is doing well clinically. One of her surgical drain was removed today. I think the liver drain can probably be removed tomorrow. Pigtail drain should remain in place for now as it continues to put out purulent fluid.
--- NOTE | 2016-10-11 10:31 | PCM.PNMED ---
Subjective Date of Service October 11, 2016 Subjective pt had large formed stool, looked more comfortable today, eating well, denied pain, nausea, vomiting Exam Vital Signs Vital Sign - Last Date Time Temp Pulse Resp B/P Pulse Ox O2 Delivery O2 Flow Rate FiO2 10/11/16 05:00 36.5 91 16 116/76 95 Room Air 10/05/16 07:03 28 Intake and Output 10/10/16 10/10/16 10/11/16 Cumulative From/Thru 15:00 23:00 07:00 10/02/16 23:14 - 10/11/16 06:12 Intake Total 1229 ml 1397 ml 21801 ml Output Total 1345 ml 85277 ml Balance 1229 ml 52 ml 742 ml Intake Oral 300 ml 2678 ml IV Total 1229 ml 1097 ml 15269 ml Packed Cells 370 ml Output Urine Total 1300 ml 05694 ml Emesis 50 ml Drainage Total 45 ml 926 ml Estimated Blood Loss 100 ml # Voids 3 # Bowel Movements 1 1 Exam mildly distressed no JVD, MMM, no LAD tachycardic, nl s1, s2 no mrg CTAB, no w,c S,less distended, mildly tender throughout, hypoactive BS+, warm, no edema, pulses 2/[address], two ROSSY no output, percutaneous drainage-purulent discharge IVs and Medications Medications Reviewed: Medications were reviewed in detail Lab and Diagnostics Result Diagram: 10/11/16 0500 10/11/16 0500 Microbiology Blood cultures pending X-Rays, CTs and MRIs CT abdomen Pelvis: Official report pending [place] Read: Large Heterogeneous liver mass that extends to the capsule. Crescentic shaped fluid and air collection in the subhepatic space along the right lateral abdominal wall may reflect ruptured intrahepatic mass or abscess; cannot entirely exclude abscess from tip appendicitis, though this is felt less likely. Distended urinary bladder with pelvocaliectasis bilaterally. Severe fecal loading of the colon. Possible right lower lobe pneumonia. Chest Xray portable Personal Read: Patient rotated right, trachea midline, poor inspiratory effort on film, RLL consolidation vs atelectasis, loop of fecal loaded bowel extending under left subdiaphragmatic region. Please correlate clinically Assessment & Plan Tiny Hill is a 56 year old developmentally delayed minimally verbal [place]ank[place] speaking female who presents with a 4 day history of anorexia with increasing abdominal pain. CT imaging in the ED reveals likely hepatic abscess with concurrent fever, leukocytosis, and Tachycardia. acute, active 1. Sepsis, POA, source: intraabdominal infection with liver abscess, perforated appendix. Leukocytosis improved from 14.8 with neutrophilic predominance to 11.8 with 70.8% neutrophils, -HD stable, clinically stable, PCT trending down, remained afebrile. -stopped maintenance fluid today, po intake is good -abx as below 2. large hepatic abscess, complicated by perforated appendix s/p drainage by on 10/04, prelim culture showed E.coli, anaerobes. Repeat abd CT10/08 showed Small scattered residual intrahepatic abscess sees with surrounding hepatitis in the right hepatic lobe posteriorly. s/p percutaneous drainage 10/09 by IR, successful, tolerated well. Tissue cultures 10/04 showed E.coli sensitive to carbapenem, anaerobes -appreciate surgery follow up, plan to remove one of the drains, possible repeat CT tomorrow -tylenol, Dilaudid 0.5 mg IV Q4 for pain control -s/p Vancomyci, flagyl, zosyn, Meropenem, continue [id number], flagyl to [id number], appreciate abx per ID severe ileus, POA, in the setting of acute intraabdominal infection, opioid use , large formed BM 10/10 -continue aggressive bowel regimen to Miralex bid, senna bid, added colace, enema as needed -advanced diet to soft, chronic, stable 3. Developmental Delay, POA, chronic. Patient minimally verbal in [place], appreciate Cousin to communicate. 4. Microcytic anemia, POA, chronicity unknown. stable, Likely anemia of chronic disease with high ferritin and low iron stores. 5. Hyperglycemia, POA, chronicity unknown. HA1c6.1, no fsg checking, stop lispro Code Status: FULL CODE, as per previous provider, Tiny voiced wanting to be allowed to pass naturally. Disposition: pending, likely 2-3more days, home with 24/7 care diet: soft, advance as tolerate GI Prophylaxis: H2 joshua VTE Prophylaxis: Sub-Q Enoxaparin VTE Mechanical Devices: Intermittant Pneumatic CD Resuscitation Status: CPR: Attempt Resuscitation Time spent 35min Delonte Lo MD October 11, 2016 09:44
[2016-10-11] MEDS: oxyCODONE-Acetamin 5-325 mg Tablet PO PRN ×2 (10:53→22:00)
[2016-10-11 12:16] VITALS: BP 104/71; PULSE 93; RESP 16; O2SAT 95
--- NOTE | 2016-10-11 15:15 | PROG NOTE ---
[address] [address] PROGRESS NOTE PATIENT: PAT ZHU : 1960 MR#: [id number] ADMIT: 10/03/2016 JOB ID: [id number] DATE: 10/11/2016 INFECTIOUS DISEASE FOLLOWUP NOTE: REASON FOR FOLLOWUP: Ruptured appendix with hepatic and intra-abdominal abscesses; also with positive amoebic serology of unknown significance. INTERVAL HISTORY: The patient continues to have right upper quadrant pain but is free of fevers, chills, or sweats. She is now eating a regular diet. She has no significant pulmonary complaint. PHYSICAL EXAMINATION: Reveals an afebrile woman. Temp 36.5. She has been afebrile now for many days. Pulse 91, respiratory rate 16, blood pressure 116/76. She is saturating well on room air, and she is in no obvious distress, though she has sort of a stoic, noninteractive personality. Oral cavity negative. Lungs clear. Cardiac tones without new murmur. Right upper quadrant tenderness persists. Her right upper quadrant drain has some thick brownish material collecting. Remainder of the exam unremarkable. LABORATORIES: Include white count 8600, now completely normal. Diff is only 77 segs at this point. Creatinine is negative. Alk phos 173, albumin 2. Last procalcitonin we had was a couple of days ago and was coming down nicely. No new micro. Of note, the ova and parasites done from the intraoperative specimen were negative, though the serology was positive. No recent new cultures since the two E. coli and bacteroides isolated from the original site drainage. We do have a path report from the original appendix resection. This showed a severe diffuse acute and chronic pancreatitis. IMPRESSION: This patient is continuing to do reasonably well after what was probably a very delayed recognition of a ruptured appendix secondary to her developmental delay. By the time she came to the hospital, she had a large liver abscess, as well as extrahepatic abscess, which were partially evaluated during the initial surgery and then, she subsequently has had drains placed. One of these drains remains in her right upper quadrant. We also have the probably incidental finding of a positive amoebic serology we are treating with standard therapy from the big liver abscess, though that was not seen by pathology, nor was it seen by ova and parasites exam of the aspirated liver contents. RECOMMENDATIONS: 1. Will continue with Flagyl to finish 7 days at 750 mg t.i.d. 2. Will continue with ertapenem as a sole agent for the liver abscess. 3. Drainage continues. 4. Will follow this patient with you.
[2016-10-11 21:10] VITALS: BP 103/74; PULSE 107; RESP 16; O2SAT 97
[2016-10-12] MEDS: Sodium Chloride LOK Flush 10 mL Syringe IVFLUSH SCH ×7 (00:30→21:41)
--- NOTE | 2016-10-12 03:57 | NUR ---
Activity On initial assessment, the video purchasing analyst was used but the purchasing analyst could not understand the patients responses. Patient asked if she was in pain and patient answered no, however, patient had a furrowed brows. 1 tab of Vicodin administered along with PM med pass. VSS. Patient up to bsc with only minimal urine output. Call light handed to patient and red button pointed out to patient. Care continues.
[2016-10-12 05:53] LABS: NEUTROPHILS % (AUTO) 68.9 % (40-74)
[2016-10-12 06:10] VITALS: BP 105/73; PULSE 95; RESP 22; O2SAT 98
[2016-10-12 06:11] LABS: BASOPHILS % (AUTO) 1.3 % (0-3); MONOCYTES % (AUTO) 9.1 % (4-12); Mean Corpuscular Hemoglobin 25.2 pg (27.0-35.0); Mean Corpuscular Volume 82.5 fL (81-100); Platelet Count 399 bil/L (150-400)
[2016-10-12 06:26] LABS: Magnesium 2.1 mg/dL (1.6-2.6); Phosphorus 3.7 mg/dL (2.5-4.9)
[2016-10-12 07:51] VITALS: BP 113/77; PULSE 96; RESP 18; O2SAT 96
--- NOTE | 2016-10-12 08:01 | PCM.PNSURG ---
Subjective Visit Information: Reason for Visit Liver Abscess Surgery/Surgery Date Post-Op Day # Date of Admission: October 03, 2016 at 03:29 Hospital Day # Subjective: difficult to communicate with pt, but no acute events overnight, had BM 2 days ago Objective Objective awake in bed Abd: soft, incision with steristrips, R ROSSY x1 with serous output and Pigtail x1 with purulent output Vital Sign- Last 8 Hours Date Time Temp Pulse Resp B/P Pulse Ox O2 Delivery O2 Flow Rate FiO2 10/12/16 07:51 36.9 96 18 113/77 96 Room Air 10/12/16 06:10 37.1 95 22 105/73 98 Room Air Intake and Output- Last 8 Hour 10/12/16 Cumulative From/Thru 07:00 10/02/16 23:14 - 10/12/16 06:37 Intake Total 400 ml 71297 ml Output Total 975 ml 96199 ml Balance -575 ml -1161 ml Intake Oral 400 ml 3628 ml IV Total 91345 ml Packed Cells 370 ml Output Urine Total 950 ml 03055 ml Emesis 50 ml Drainage Total 25 ml 951 ml Estimated Blood Loss 100 ml # Voids 2 5 # Bowel Movements 0 1 Result Diagram: 10/11/16 0500 10/12/16 0520 Assessment & Plan Impression s/p lap appy and drainage of liver abscess and perc drain of intra-abd abscess Clinically stable Problems: Plan Await CBC result today Possible removal of ROSSY drain later today Abx per ID recommendation Resuscitation Status: CPR: Attempt Resuscitation Catrachito Shepard MD October 12, 2016 08:01
[2016-10-12] MEDS: NS IV SCH ×2 (09:05)
[2016-10-12] MEDS: Polyethylene Glycol (PEG) 17 Gm Powder PO SCH ×2 (09:05→21:41)
[2016-10-12] MEDS: ERTAPENEM IV SCH ×2 (09:05)
--- NOTE | 2016-10-12 11:41 | PCM.PNMED ---
Subjective Date of Service October 12, 2016 Subjective Patient looked more comfortable Reported bowel movement this AM, loose eating well Exam Vital Signs Vital Sign - Last Date Time Temp Pulse Resp B/P Pulse Ox O2 Delivery O2 Flow Rate FiO2 10/12/16 07:51 36.9 96 18 113/77 96 Room Air Intake and Output 10/11/16 10/11/16 10/12/16 Cumulative From/Thru 15:00 23:00 07:00 10/02/16 23:14 - 10/12/16 06:37 Intake Total 472 ml 550 ml 400 ml 81830 ml Output Total 2350 ml 975 ml 92961 ml Balance 472 ml -1800 ml -575 ml -1161 ml Intake Oral 550 ml 400 ml 3628 ml IV Total 472 ml 91215 ml Packed Cells 370 ml Output Urine Total 2350 ml 950 ml 58192 ml Emesis 50 ml Drainage Total 0 ml 25 ml 951 ml Estimated Blood Loss 100 ml # Voids 2 5 # Bowel Movements 0 1 Exam NAD, comfortable no JVD, MMM, no LAD RRR, nl s1, s2 no mrg CTAB, no w,c S,less distended, NT, normoactive BS+, warm, no edema, pulses 2/[address], one ROSSY no output, percutaneous drainage-purulent discharge IVs and Medications Medications Reviewed: Medications were reviewed in detail Lab and Diagnostics Result Diagram: 10/12/1651910/12/16519 Microbiology Blood cultures pending X-Rays, CTs and MRIs CT abdomen Pelvis: Official report pending [place] Read: Large Heterogeneous liver mass that extends to the capsule. Crescentic shaped fluid and air collection in the subhepatic space along the right lateral abdominal wall may reflect ruptured intrahepatic mass or abscess; cannot entirely exclude abscess from tip appendicitis, though this is felt less likely. Distended urinary bladder with pelvocaliectasis bilaterally. Severe fecal loading of the colon. Possible right lower lobe pneumonia. Chest Xray portable Personal Read: Patient rotated right, trachea midline, poor inspiratory effort on film, RLL consolidation vs atelectasis, loop of fecal loaded bowel extending under left subdiaphragmatic region. Please correlate clinically Assessment & Plan Tiny Hill is a 56 year old developmentally delayed minimally verbal Citizen Of [place] speaking female who presents with a 4 day history of anorexia with increasing abdominal pain. CT imaging in the ED reveals likely hepatic abscess with concurrent fever, leukocytosis, and Tachycardia. acute, active 1. Sepsis, POA, source: intraabdominal infection with liver abscess, perforated appendix. Leukocytosis improved from 14.8 with neutrophilic predominance to 11.8 with 70.8% neutrophils, -HD stable, clinically stable, PCT trending down, remained afebrile. -stopped maintenance fluid 10/11, po intake is good -abx as below 2. large hepatic abscess, complicated by perforated appendix s/p drainage by on 10/04, prelim culture showed E.coli, anaerobes. Repeat abd CT10/08 showed Small scattered residual intrahepatic abscess sees with surrounding hepatitis in the right hepatic lobe posteriorly. s/p percutaneous drainage 10/09 by IR, successful, tolerated well. Tissue cultures 10/04 showed E.coli sensitive to carbapenem, anaerobes -appreciate surgery follow up, -tylenol, Dilaudid 0.5 mg IV Q4 for pain control -s/p Vancomyci, flagyl, zosyn, Meropenem, continue [id number], flagyl to [id number], appreciate abx per ID severe ileus, POA, in the setting of acute intraabdominal infection, opioid use , large formed BM 10/10, 20. improved -continue aggressive bowel regimen to Miralex, senna, colace, enema as needed -advanced diet as tolerate per surgery chronic, stable 3. Developmental Delay, POA, chronic. Patient minimally verbal in Citizen [place], appreciate Cousin to communicate. 4. Microcytic anemia, POA, chronicity unknown. stable, Likely anemia of chronic disease with high ferritin and low iron stores. 5. Hyperglycemia, POA, chronicity unknown. HA1c6.1, no fsg checking, stop lispro Code Status: FULL CODE, as per previous provider, Tiny voiced wanting to be allowed to pass naturally. Disposition: pending, likely 2-3more days, home with 24/ care diet: soft, advance as tolerate GI Prophylaxis: H2 joshua VTE Mechanical Devices: Intermittant Pneumatic CD Resuscitation Status: CPR: Attempt Resuscitation Time spent 35min Delonte Lo MD October 12, 2016 11:41
[2016-10-12 14:59] VITALS: BP 110/80; PULSE 91; RESP 18; O2SAT 96
--- NOTE | 2016-10-12 15:12 | NUR ---
Activity / Pain Pt is passive, calm and cooperative with care. She ambulated in the hallway twice with the AUTOC[employer] TECHNICIAN and was steady on her feet. She sat up in the chair for meals. Pt denies pain when asked. No outward appearance of pain. Administered 325 mg PO Tylenol to promote comfort.
[2016-10-12 20:35] VITALS: BP 100/66; PULSE 104; RESP 24; O2SAT 99
[2016-10-12] MEDS: oxyCODONE-Acetamin 5-325 mg Tablet PO PRN (23:44)
[2016-10-13] MEDS: Sodium Chloride LOK Flush 10 mL Syringe IVFLUSH SCH ×5 (00:30→15:18)
[2016-10-13 04:30] VITALS: BP 99/68; PULSE 98; RESP 20; O2SAT 96
--- NOTE | 2016-10-13 05:01 | NUR ---
pain/activity pt has denied pain for most of the night. only once did she say she had pain, pt showed signs of guarding her stomach and had a furrowed brow. she was given one [place]. upon reassessment pt was sleeping appearing comfortable. she has been up to the bathroom CGA. she can occasionally get unsteady on her feet when walking. pt does not use call light so hourly rounding performed and needs frequently assessed. [place] alarm on. care continues.
[2016-10-13 05:53] LABS: BASOPHILS % (AUTO) 0.4 % (0-3); EOSINOPHILS % (AUTO) 1.1 % (0-5); MONOCYTES % (AUTO) 10.6 % (4-12); Mean Corpuscular Hemoglobin 25.4 pg (27.0-35.0); Mean Corpuscular Volume 82.2 fL (81-100); NEUTROPHILS % (AUTO) 68.6 % (40-74); Platelet Count 448 bil/L (150-400)
[2016-10-13 08:30] VITALS: BP 100/68; PULSE 125; RESP 16; O2SAT 97
[2016-10-13] MEDS: 0.9% Sodium Chloride 1,000 ML IV SCH ×2 (08:30→20:27)
[2016-10-13] MEDS: Polyethylene Glycol (PEG) 17 Gm Powder PO SCH ×2 (08:30→20:30)
[2016-10-13] MEDS: NS IV SCH ×2 (08:30)
[2016-10-13] MEDS: ERTAPENEM IV SCH ×2 (08:30)
--- NOTE | 2016-10-13 08:41 | PCM.PNSURG ---
Subjective Visit Information: Reason for Visit Liver Abscess Surgery/Surgery Date Post-Op Day # Date of Admission: October 03, 2016 at 03:29 Hospital Day # Subjective: sitting up eating breakfast, having BM's, no n/v, some pain at the R drain sites Objective Objective Awake up in chair eating Abd: R ROSSY -- serous fluid, minimal output, Perc drain in place with yellow output Vital Sign- Last 8 Hours Date Time Temp Pulse Resp B/P Pulse Ox O2 Delivery O2 Flow Rate FiO2 10/13/16 04:30 37.1 98 20 99/68 96 Room Air Intake and Output- Last 8 Hour 10/13/16 Cumulative From/Thru 07:00 10/02/16 23:14 - 10/13/16 06:54 Intake Total 1200 ml 80707 ml Output Total 1650 ml 10079 ml Balance -450 ml -2192 ml Intake Oral 1200 ml 5428 ml IV Total 13673 ml Packed Cells 370 ml Output Urine Total 1650 ml 11867 ml Emesis 50 ml Drainage Total 0 ml 951 ml Estimated Blood Loss 100 ml # Voids 3 8 # Bowel Movements 2 3 Result Diagram: 10/13/16 0450 10/13/16 0450 Assessment & Plan Impression Doing well s/p lap appy and drainage of liver abscess Problems: Plan Diet as tolerated Will d/c ROSSY drain today Continue perc drain IV abx per ID recommendation Resuscitation Status: CPR: Attempt Resuscitation Catrachito Shepard MD October 13, 2016 08:41
--- NOTE | 2016-10-13 09:24 | PCM.PNMED ---
Subjective Date of Service October 13, 2016 Subjective pt was mildly tachycardic but looked comfortable, denied pain, eating well, reported small BM Exam Vital Signs Vital Sign - Last Date Time Temp Pulse Resp B/P Pulse Ox O2 Delivery O2 Flow Rate FiO2 10/13/16 08:30 36.1 125 16 100/68 97 Room Air Intake and Output 10/12/16 10/12/16 10/13/16 Cumulative From/Thru 15:00 23:00 07:00 10/02/16 23:14 - 10/13/16 06:54 Intake Total 119 ml 600 ml 1200 ml 43523 ml Output Total 1300 ml 1650 ml 98700 ml Balance 119 ml -700 ml -450 ml -2192 ml Intake Oral 600 ml 1200 ml 5428 ml IV Total 119 ml 40132 ml Packed Cells 370 ml Output Urine Total 1300 ml 1650 ml 29763 ml Emesis 50 ml Drainage Total 0 ml 0 ml 951 ml Estimated Blood Loss 100 ml # Voids 3 8 # Bowel Movements 2 3 Exam NAD, comfortable no JVD, MMM, no LAD RRR, nl s1, s2 no mrg CTAB, no w,c S,less distended, NT, normoactive BS+, warm, no edema, pulses 2/[address], one ROSSY no output, percutaneous drainage-purulent discharge IVs and Medications Medications Reviewed: Medications were reviewed in detail Lab and Diagnostics Result Diagram: 10/13/16 0450 10/13/16 0450 Microbiology Blood cultures pending X-Rays, CTs and MRIs CT abdomen Pelvis: Official report pending [place] Read: Large Heterogeneous liver mass that extends to the capsule. Crescentic shaped fluid and air collection in the subhepatic space along the right lateral abdominal wall may reflect ruptured intrahepatic mass or abscess; cannot entirely exclude abscess from tip appendicitis, though this is felt less likely. Distended urinary bladder with pelvocaliectasis bilaterally. Severe fecal loading of the colon. Possible right lower lobe pneumonia. Chest Xray portable Personal Read: Patient rotated right, trachea midline, poor inspiratory effort on film, RLL consolidation vs atelectasis, loop of fecal loaded bowel extending under left subdiaphragmatic region. Please correlate clinically Assessment & Plan Tiny Hill is a 56 year old developmentally delayed minimally verbal [place] speaking female who presents with a 4 day history of anorexia with increasing abdominal pain. CT imaging in the ED reveals likely hepatic abscess with concurrent fever, leukocytosis, and Tachycardia. acute, active 1. Sepsis, POA, source: intraabdominal infection with liver abscess, perforated appendix. Leukocytosis improved from 14.8 with neutrophilic predominance to 11.8 with 70.8% neutrophils, -HD stable, clinically stable, PCT trending down, remained afebrile. -stopped maintenance fluid 10/11, po intake is good -abx as below 2. large hepatic abscess, complicated by perforated appendix s/p drainage by on 10/04, prelim culture showed E.coli, anaerobes. Repeat abd CT10/08 showed Small scattered residual intrahepatic abscess sees with surrounding hepatitis in the right hepatic lobe posteriorly. s/p percutaneous drainage 10/09 by IR, successful, tolerated well. Tissue cultures 10/04 showed E.coli sensitive to carbapenem, anaerobes -appreciate surgery follow up, plan to remove second ROSSY drain per -tylenol, Dilaudid 0.5 mg IV Q4 for pain control -s/p Vancomyci, flagyl, zosyn, Meropenem, continue [id number] and flagyl to [id number], appreciate abx per ID severe ileus, POA, in the setting of acute intraabdominal infection, opioid use , large formed BM 10/10, 20. improved -continue aggressive bowel regimen to Miralex, senna, colace, enema as needed -advanced diet as tolerate per surgery chronic, stable 3. Developmental Delay, POA, chronic. Patient minimally verbal in [place], appreciate Cousin to communicate. 4. Microcytic anemia, POA, chronicity unknown. stable, Likely anemia of chronic disease with high ferritin and low iron stores. 5. Hyperglycemia, POA, chronicity unknown. HA1c6.1, no fsg checking, stop lispro Code Status: FULL CODE, as per previous provider, Tiny voiced wanting to be allowed to pass naturally. Disposition: pending, likely 2-3more days, home with 16/12 care, please coordinate with surgery and ID for d/c diet: soft, advance as tolerate GI Prophylaxis: H2 joshua VTE Mechanical Devices: Intermittant Pneumatic CD Resuscitation Status: CPR: Attempt Resuscitation Time spent 35min Delonte Lo MD October 13, 2016 09:24
[2016-10-13] MEDS: oxyCODONE-Acetamin 5-325 mg Tablet PO PRN ×3 (10:18→20:28)
--- NOTE | 2016-10-13 12:17 | NUR ---
ACTIVITY Via FELDT scale patients pain level is from 2-4/10. Percocet 1 tab PO administered for complaints of pain, which was helpful. Via FELDT scale patients pain level is 0/10 after her pain medication. Tolerating liquids PO and his diet well. Denies nausea. No emesis noted. Denies SOB. Patient has been able to ambulate in the room without any problems. ROSSY drain has very scant output. D/cd ROSSY drain per Dr. Shepard's orders. Tip is intact. Voiding without any problems.
[2016-10-13 15:02] VITALS: BP 97/66; PULSE 105; RESP 16; O2SAT 97
--- NOTE | 2016-10-13 16:05 | NUR ---
Social Work Note: Continued Discharge Planning Data& Assessment: SW met with pt and pt family at bedside to check in and assess for any unmet needs with the assistance from the electronic senior staff psychologist stick. Pt ambulated 300ft with PT. ID continues to follow. Drain in place. Pt cousin Felecia explained that pt will likely be discharging to her home at time of discharge and finances are a major concern for the family. SW provided another Maltese financial data analyst application. Pt family explained they are not able to write and would need assistance filling out the application. SW and pt family discussed inquiring with [facility] tomorrow during regular business hours to see if pt would be able to have follow up care as well as access to medications. Pt family understands that pt lack of ID could be a barrier to outpt follow up and access to medications. Pt family working on getting some sort of identification mailed over from [place]. Pt family denies any other needs at this time. SW to continue to follow. Plan: Anticipated discharge home with family via POV when medically ready. SW to followup with [facility] to see if pt would be able to receive care there without formal ID. Pt family denies any other needs at this time. SW to continue to follow. ADEEL Faust
[2016-10-13 21:50] VITALS: BP 100/63; PULSE 110; RESP 16; O2SAT 96
[2016-10-14] MEDS: Sodium Chloride LOK Flush 10 mL Syringe IVFLUSH SCH ×8 (00:26→23:46)
--- NOTE | 2016-10-14 02:33 | NUR ---
Pain/ loose stools Patient denies pain, does not exhibit any s/s of pain with ambulation to bathroom. Gait steady and behavior appropriate. No attempts to ambulate independently, however will not use call light and requires intentional rounding. Sledge bed alarm placed for safety. Patient passing loose stool. Will continue plan of care.
[2016-10-14 05:34] VITALS: BP 102/67; PULSE 106; RESP 16; O2SAT 95
[2016-10-14 06:17] LABS: BASOPHILS % (AUTO) 0.6 % (0-3); EOSINOPHILS % (AUTO) 1.3 % (0-5); MONOCYTES % (AUTO) 10.4 % (4-12); Mean Corpuscular Hemoglobin 25.6 pg (27.0-35.0); Mean Corpuscular Volume 83.1 fL (81-100); NEUTROPHILS % (AUTO) 68.3 % (40-74); Platelet Count 462 bil/L (150-400)
[2016-10-14] MEDS: Polyethylene Glycol (PEG) 17 Gm Powder PO SCH ×2 (06:59→19:24)
[2016-10-14] MEDS: NS IV SCH ×2 (08:19)
[2016-10-14] MEDS: ERTAPENEM IV SCH ×2 (08:19)
[2016-10-14 08:20] VITALS: BP 106/72; PULSE 123; RESP 16; O2SAT 96
[2016-10-14] MEDS: 0.9% Sodium Chloride 1,000 ML IV SCH ×2 (08:41→19:24)
[2016-10-14 09:55] VITALS: PULSE 96
--- NOTE | 2016-10-14 10:37 | PROG NOTE ---
[address] [address] PROGRESS NOTE PATIENT: PAT ZHU : 1960 MR#: [id number] ADMIT: 10/03/2016 JOB ID: [id number] DATE: 10/14/2016 REASON FOR FOLLOW UP: A ruptured appendix with secondary liver abscess as well as extrahepatic right-sided abdominal abscess. INTERVAL HISTORY: Over the weekend, the patient has been quite stable. No fevers, chills, or sweats. No pulmonary symptoms. Her ROSSY drain placed at surgery was removed, but she still has the IR drain in the extrahepatic abscess which is still draining reasonable amounts of purulent- appearing material. The abdomen is otherwise negative. No significant tenderness or masses appreciated. PHYSICAL EXAMINATION: Reveals temperature 37.1, pulse 96, respiratory rate 16, blood pressure 106/72. The patient is saturating well on room air. She is awake, alert, answers questions. Oral cavity negative. Lungs clear. Abdomen with a single drain remaining. Relatively nontender without focal mass. LABORATORIES: Include white count stable at 8700. Creatinine is less than 0.3. LFTs normal. Procalcitonin is 0.09. Recall that she had a positive amebiasis titer. IMPRESSION: This is a young woman with a developmental delay who had suffered a ruptured appendix which was not recognized for a considerable period of time, and had a very large intrahepatic as well as extrahepatic abscess on the basis of the ruptured appendix. Cultures yielded two strains of Escherichia coli as well as Bacteroides fragilis which are pretty classic for this kind of a process. She has been steadily improving on a combination of ertapenem and Flagyl. The Flagyl is not directed at the Bacteroides fragilis but rather her positive amebic serology which is likely unrelated to her current problems, as we know that no amebiasis was detected by histopathology nor by O and P. RECOMMENDATIONS: 1. Continue with ertapenem and Flagyl through at least tomorrow. 2. Once the patient's drain is out and she is ready for discharge, she could be easily treated for an extended period with oral Cipro and Flagyl, and serial ultrasound or CAT scan follow-ups until her liver abscess is gone. 3. The exact duration of treatment for liver abscess is individualized but often extends to two or three months or more, especially with large abscess collections such as this.
[2016-10-14] MEDS: oxyCODONE-Acetamin 5-325 mg Tablet PO PRN ×2 (11:47→19:28)
--- NOTE | 2016-10-14 13:18 | PCM.PNSURG ---
Subjective Date of Service: October 14, 2016 Date of Service: October 14, 2016 Visit Information: Reason for Visit Liver Abscess Surgery/Surgery Date Post-Op Day # 10 Date of Admission: October 03, 2016 at 03:29 Hospital Day # 12 Subjective: Patient did not provide any meaningful subjective input today. No nausea. Eating. Postop General: No Complaints Gastrointestinal: Tolerating Oral Feedings, No N/V, Passing Stool Pain Management: Good Pain Control Postop Activity: Ambulating Independently Objective Objective Comfortable appearing female in no apparent distress. Eating and sitting in chair at bedside. Vital Sign- Last 8 Hours Date Time Temp Pulse Resp B/P Pulse Ox O2 Delivery O2 Flow Rate FiO2 10/14/16 09:55 96 10/14/16 08:20 37.1 123 16 106/72 96 Room Air 10/14/16 05:34 36.8 106 16 102/67 95 Room Air Intake and Output- Last 8 Hour 10/14/16 Cumulative From/Thru 07:00 10/02/16 23:14 - 10/14/16 07:00 Intake Total 1245 ml 49669 ml Output Total 1400 ml 43846 ml Balance -155 ml -1621 ml Intake Oral 200 ml 6128 ml IV Total 1045 ml 32660 ml Packed Cells 370 ml Output Urine Total 1400 ml 19393 ml Emesis 50 ml Drainage Total 953 ml Estimated Blood Loss 100 ml # Voids 8 # Bowel Movements 5 General: Alert, Cooperative, No Acute Distress Lungs: Clear to Auscultation Heart: Normal S1, Normal S2, No Murmurs/Rubs/Gallops, Other (mildly tachycardic ) Abdomen: Appropriately tender, Non-distended, Normoactive bowel tones SURGICAL WOUND : Wound General Appearence: Steri Strips, Intact, Well Approximated, No Erythema Dressing & Drainage Status: No Purulent Drainage, No Odor Wound Drainage Type: T-Tube (brown turbid output-30mL today and stable) Result Diagram: 10/14/16 0510 10/14/16 0510 Assessment & Plan Impression Improving s/p liver abscess drainage and lap appy. Doing well clinically. WBC stable, daily ouput from perc drain stable at about 20-30mL. Problems: Plan Regular diet. DC IVF. Appears to be close to discharge from my viewpoint. Family can assist in daily perc drain flush reqmt if drain remains. Now on day 7 of ertapenem. Home on cipro/flagyl combo. Will evaluate tomorrow with Dr. Villatoro for d/c c or s drain. O/w continue current mgmt. Resuscitation Status: CPR: Attempt Resuscitation Pipo Dasilva PA-C October 14, 2016 13:18
[2016-10-14 16:00] VITALS: BP 101/70; PULSE 107; RESP 16; O2SAT 97
--- NOTE | 2016-10-14 16:00 | PCM.PNMED ---
Subjective Date of Service October 14, 2016 Subjective She has no complaints denies pain but as soon as I press on her abdomen she winces and is clearly in pain and admits to it. Not sure she can make her needs even known. She not only has cognitive impairments but only speaks [place]ian. I interact with her via an pipe organ installer. Exam Vital Signs Vital Sign - Last Date Time Temp Pulse Resp B/P Pulse Ox O2 Delivery O2 Flow Rate FiO2 10/14/16 09:55 96 10/14/16 08:20 37.1 16 106/72 96 Room Air Intake and Output 10/13/16 10/13/16 10/14/16 Cumulative From/Thru 15:00 23:00 07:00 10/02/16 23:14 - 10/14/16 07:00 Intake Total 1128 ml 1245 ml 17055 ml Output Total 402 ml 1400 ml 66937 ml Balance 726 ml -155 ml -1621 ml Intake Oral 500 ml 200 ml 6128 ml IV Total 628 ml 1045 ml 72905 ml Packed Cells 370 ml Output Urine Total 400 ml 1400 ml 86325 ml Emesis 50 ml Drainage Total 2 ml 953 ml Estimated Blood Loss 100 ml # Voids 8 # Bowel Movements 2 5 Exam Gen.- A+ O 2-3 no apparent distress. Thin female Eyes- open conjunctiva clear, pupils equal nonicteric ENT- ears normal, nose normal, hearing intact Neck- supple/trach midline CVS- RRR no murmur or gallop Lungs- CTA GI- NABS/soft ++ tenderness hard to localize where but definitely epigastric and somewhat generalized Musc- moving 4 no obvious deformity Neuro- cranial nerves II through XII intact to gross examination, nonfocal Skin- warm and dry, no rashes/lesions Psych- pleasant and appropriate, Lab and Diagnostics Result Diagram: 10/14/16 0510/14/16 0510 Microbiology Blood cultures pending X-Rays, CTs and MRIs CT abdomen Pelvis: Official report pending [place] Read: Large Heterogeneous liver mass that extends to the capsule. Crescentic shaped fluid and air collection in the subhepatic space along the right lateral abdominal wall may reflect ruptured intrahepatic mass or abscess; cannot entirely exclude abscess from tip appendicitis, though this is felt less likely. Distended urinary bladder with pelvocaliectasis bilaterally. Severe fecal loading of the colon. Possible right lower lobe pneumonia. Chest Xray portable Personal Read: Patient rotated right, trachea midline, poor inspiratory effort on film, RLL consolidation vs atelectasis, loop of fecal loaded bowel extending under left subdiaphragmatic region. Please correlate clinically Assessment & Plan 56yo developmentally impaired Colombian speaking female who was admitted 10/03 with a 4 day history of anorexia with increasing abdominal pain. CT imaging in the ED reveals likely hepatic abscess with concurrent fever, leukocytosis, and Tachycardia. 10/14 meaning medically complicated patient for the first time who cannot speak still having abdominal issues but bowels moving she is eating completing a course of antibiotics. We are beginning to craft discharge plans with her family. large hepatic abscess, complicated by perforated appendix s/p drainage by on 10/04, prelim culture showed E.coli, anaerobes. Repeat abd CT10/08 showed Small scattered residual intrahepatic abscess sees with surrounding hepatitis in the right hepatic lobe posteriorly. s/p percutaneous drainage 10/09 by IR, successful, tolerated well. Tissue cultures 10/04 showed E.coli sensitive to carbapenem, anaerobes -appreciate surgery follow up, plan to remove second ROSSY drain per -tylenol, Dilaudid 0.5 mg IV Q4 for pain control -s/p Vancomyci, flagyl, zosyn, Meropenem, continue [id number] and flagyl to [id number], appreciate abx per ID Microcytic anemia, POA, chronicity unknown. stable, Likely anemia of chronic disease with high ferritin and low iron stores. -iron low normal 10/03 severe ileus, POA, in the setting of acute intraabdominal infection, opioid use , large formed BM 10/10, 20. resolved 4BMs 10/14 -continue aggressive bowel regimen to Miralex, senna, colace, enema as needed -advanced diet as tolerate per surgery Developmental impairment, POA, chronic. Patient minimally verbal in [place]ian, appreciate Cousin to communicate. Hyperglycemia, POA, chronicity unknown. HA1c6.1, no fsg checking, stop lispro Sepsis, POA, source: intraabdominal infection with liver abscess, perforated appendix. resolved Code Status: FULL CODE, as per previous provider, Tiny voiced wanting to be allowed to pass naturally. Disposition: pending, likely 2-3more days, home with / care, please coordinate with surgery and ID for d/c diet: soft, advance as tolerate GI Prophylaxis: H2 joshua VTE Mechanical Devices: Intermittant Pneumatic CD Resuscitation Status: CPR: Attempt Resuscitation Woody Vela MD October 14, 2016 16:00 Woody Vela MD October 14, 2016 16:00
--- NOTE | 2016-10-14 18:59 | NUR ---
POST-OP PROGRESS Percocet 1 tab PO has been effective for pain control. Tolerating liquids PO and her diet well. Denies nausea. No emesis noted. Patient had 1 loose stool this shift. Stool softeners withheld. Ambulating with SBA in the room. Steri strips CDI. Tdrain remains in place with purulent, yellowish-brown output noted. Alvaro, PAC is aware of this. [place] alarm is on for safety.
[2016-10-14 19:35] VITALS: BP 106/72; PULSE 117; RESP 16; O2SAT 96
--- NOTE | 2016-10-14 23:18 | NUR ---
Pain Pt complained of pain of a 4 earlier this evening (location abdomen) Given one percocet Pt has had relief from the pain. Currrently resting quietly. No complaints
[2016-10-15 04:25] VITALS: BP 111/72; PULSE 104; RESP 16; O2SAT 98
--- NOTE | 2016-10-15 08:04 | PROG NOTE ---
[address] [address] PROGRESS NOTE PATIENT: TINY ZHU : 1960 MR#: [id number] ADMIT: 10/03/2016 JOB ID: [id number] DATE: 10/15/2016 SUBJECTIVE: Tiny is seen with the video take out waiter. She is not complaining of any abdominal pain today. She denies nausea. OBJECTIVE: Temperature 36.5, pulse 104, blood pressure 111/72, saturation 98% on room air. General: She is sitting in a chair in no acute distress. Abdomen is soft, nondistended. The laparoscopy incisions are healed. Her right flank pigtail drain is putting out brown looking fluid, that looks quite a lot like stool. LABORATORIES: White count 8.7, hematocrit 29.5, platelets 462. Procalcitonin 0.09. ASSESSMENT AND PLAN: A 56-year-old developmentally delayed woman status post laparoscopic appendectomy for chronic perforated appendicitis with abscess and laparoscopic drainage of liver abscess. She is doing well clinically. I think she should be discharged from the hospital with her pigtail drain in place. In the outpatient setting, we will have to watch the drainage to see if it remains suspicious for a colon fistula. In the outpatient setting, I would get a repeat CT scan and a tube study prior to removing the drain. I think she can leave the hospital today. She should follow up with me in surgery clinic in approximately 1 week.
[2016-10-15] MEDS: Sodium Chloride LOK Flush 10 mL Syringe IVFLUSH SCH ×5 (08:30→21:37)
[2016-10-15] MEDS: Polyethylene Glycol (PEG) 17 Gm Powder PO SCH ×2 (08:54→21:36)
[2016-10-15] MEDS: 0.9% Sodium Chloride 1,000 ML IV SCH (09:15)
--- NOTE | 2016-10-15 09:41 | PROG NOTE ---
[address] [address] PROGRESS NOTE PATIENT: PAT ZHU : 1960 MR#: [id number] ADMIT: 10/03/2016 JOB ID: [id number] DATE: 10/15/2016 REASON FOR FOLLOW UP: Ruptured appendix with resultant hepatic and extrahepatic abscesses. INTERVAL HISTORY: The patient today is much more alert and interactive than she has been in the past 2 days. She denies fevers, chills, sweats, cough, shortness of breath, or significant abdominal pain. She is looking forward to going home in the near future. She continues to have a drain in the right upper quadrant and the plan is for to be discharged with that drain with her family to flush it. PHYSICAL EXAMINATION: Reveals a woman who is consistently afebrile at this point. Current temp 36.5, pulse 104, respiratory rate 16, blood pressure 111/72, saturating well on room air in no acute distress. She is more interactive than before as noted. Oral cavity negative. Lungs quite clear. Cardiac tones without murmur. Abdomen nontender with drain in place. LABORATORIES: Include white count yesterday normal 8700 and creatinine yesterday 0.3. No new labs are available. IMPRESSION: This patient is doing quite well at this point with respect to her large intraabdominal and intrahepatic abscesses. Our final culture showed 2 species of Escherechia coli which were both sensitive to Cipro as well as Bacteroides. Recall that she also had a positive amebic serology. At this point, it was seen the patient is basically ready for discharge with the drain in place per surgery and IR. The simple antibiotic solution here is Cipro 750 b.i.d. and Flagyl 500 p.o. b.i.d. for an extended period of time. Exactly how long to treat a liver abscess is unclear in the literature and varies on a [id number] basis. Serial imaging of the abscess will provide the answer as to how long antibiotics are needed. They are generally given until the abscess is essentially resolved. I would not continue with Flagyl more than about 6 weeks in total, however as the risk of neurotoxicity becomes quite significant with very long courses and this patient would be unlikely to be able to tell us what symptoms she is having. RECOMMENDATIONS: 1. We can transition the patient to a completely oral regimen as of today. I would give her dose of ertapenem today and then start her today also on Cipro 750 b.i.d. and Flagyl 500 p.o. b.i.d. with an intention of continuing at least 4 weeks. 2. Follow up with serial imaging will be indicated and will be scheduled by the general veterinary surgery technologist on an outpatient basis. 3. Labs should be checked every couple weeks on this antibiotic regimen to include CBC and CMP. 4. I am happy to see this patient in my clinic, though I understand there are logistic and other problems in scheduling her as she is a English national without identity papers. I am happy to see year though in my clinic on either October 22 or FridayOctober 29 and that appointment can be made simply by calling my office if that follow up is indicated or she can be followed just by the surgical services assistant with telephone advice from me as indicated. 5. ID will go ahead and sign off as there are no outstanding issues in this patient at this time.
[2016-10-15] MEDS: NS IV SCH ×2 (12:14)
[2016-10-15] MEDS: ERTAPENEM IV SCH ×2 (12:14)
--- NOTE | 2016-10-15 13:07 | NUR ---
NUTRITION FOLLOW UP: ASSESS: 56 YO developmentally delayed female admitted with sepsis, intraabdominal infection with liver abscess and perforated appendix; POD #11 following laparoscopic appendectomy and laparoscopic drainage of abscess. Pt had percutaneous drain placed 10/09. Pt has been tolerating her diet well at 50-100%. PMHx: Profound developmental delay, early dementia. DIET: General. PO 50-100% LABS: Bun 5, Design Verification Engineer <.3, Glu 106, Ca 8.1, Alb 2.2 MEDICATIONS: Reviewed. Senna, miralx, Colace, zofran GI symptoms / stool: BMx4 10/13 Skin Integrity: No issues reported. ANTHROPOMETRICS: Current Wt: 51.1 kg BMI: 19.3 kg/m2. Admit weight: 52.2 kg. IBW: 54.5 kg ESTIMATED NEEDS: Calories: 1360 - 1630 kcal (25 - 30 kcal / kg BW) Protein: 55 - 65 g protein (1.0 - 1.2 g / kg BW) NUTRITION DIAGNOSIS: 1) Chewing / swallowing difficulties of unknown etiology, as evidenced by family notation of dysphagia history.--RESOLVED 2) Inadequate oral intake related to altered GI tract function as evidenced by NPO x 4 days status.--IMPROVING INTERVENTION: 1) Continue current diet. PO is adequate for needs MONITOR/EVALUATE: PO, wt, labs, GI/nutrition status. Follow up per moderate nutrition risk guidelines.
--- NOTE | 2016-10-15 14:29 | PCM.PNMED ---
Subjective Date of Service October 15, 2016 Subjective Patient sitting up without complaints eating breakfast. Exam Vital Signs Vital Sign - Last Date Time Temp Pulse Resp B/P Pulse Ox O2 Delivery O2 Flow Rate FiO2 10/15/16 04:25 36.5 104 16 111/72 98 Room Air Intake and Output 10/14/16 10/14/16 10/15/16 Cumulative From/Thru 14:59 22:59 06:59 10/02/16 23:14 - 10/15/16 05:38 Intake Total 940 ml 700 ml 33042 ml Output Total 1830 ml 1350 ml 36427 ml Balance -890 ml -650 ml -3161 ml Intake Oral 940 ml 700 ml 7768 ml IV Total 59454 ml Packed Cells 370 ml Output Urine Total 1500 ml 1350 ml 70460 ml Stool Total 300 ml 300 ml Emesis 50 ml Drainage Total 30 ml 0 ml 983 ml Estimated Blood Loss 100 ml # Voids 8 # Bowel Movements 5 Exam Gen.- A+ O 2-3 no apparent distress. Thin female sitting up eating breakfast Eyes- open conjunctiva clear, pupils equal nonicteric ENT- ears normal, nose normal, hearing intact Neck- supple/trach midline CVS-rate within normal limits Lungs-regular, nonlabored no accessory muscle usage GI-flat Musc- moving 4 no obvious deformity Neuro- cranial nerves II through XII intact to gross examination, nonfocal Skin- warm and dry, no rashes/lesions Psych- smiling, Lab and Diagnostics Result Diagram: 10/14/16 0510 10/14/16 0510 Microbiology Blood cultures pending X-Rays, CTs and MRIs CT abdomen Pelvis: Official report pending [place] Read: Large Heterogeneous liver mass that extends to the capsule. Crescentic shaped fluid and air collection in the subhepatic space along the right lateral abdominal wall may reflect ruptured intrahepatic mass or abscess; cannot entirely exclude abscess from tip appendicitis, though this is felt less likely. Distended urinary bladder with pelvocaliectasis bilaterally. Severe fecal loading of the colon. Possible right lower lobe pneumonia. Chest Xray portable Personal Read: Patient rotated right, trachea midline, poor inspiratory effort on film, RLL consolidation vs atelectasis, loop of fecal loaded bowel extending under left subdiaphragmatic region. Please correlate clinically Assessment & Plan 56yo developmentally impaired Beninese speaking female who was admitted 10/03 with a 4 day history of anorexia with increasing abdominal pain. CT imaging in the ED reveals likely hepatic abscess with concurrent fever, leukocytosis, and Tachycardia. 10/14 medically complicated patient for the first time who cannot speak still having abdominal issues but bowels moving she is eating completing a course of antibiotics. We are beginning to craft discharge plans with her family. 10/15 family needs training for drain management. We need to see how the patient does on oral antibiotics/oral pain meds overnight. Hopefully we can discharge her with home health and follow-up appointments 10/16. large hepatic abscess, complicated by perforated appendix s/p drainage by on 10/04, prelim culture showed E.coli, anaerobes. Repeat abd CT10/08 showed Small scattered residual intrahepatic abscess sees with surrounding hepatitis in the right hepatic lobe posteriorly. s/p percutaneous drainage 10/09 by IR, successful, tolerated well. Tissue cultures 10/04 showed E.coli sensitive to carbapenem, anaerobes -surgery 2 of 3 drains out 10/15, t tube to remain in place f/u out pt -s/p Vanco, flagyl, zosyn, Meropenem, [id number] -10/15, patient to finish at least a 4 week course of Cipro/Flagyl by mouth and can follow up with Dr. Blue infectious disease in his office 10/22 or 10/30 -. IV Dilaudid for pain control, Percocet 10/325 one to 2 by mouth every 4 when necessary to get her home. Microcytic anemia, POA, chronicity unknown. stable, Likely anemia of chronic disease with high ferritin and low iron stores. -iron low normal 10/03 ileus,resolved - resolved 4BMs 10/14 -continue aggressive bowel regimen to Miralex, senna, colace, enema as needed -advanced diet as tolerate per surgery Developmental impairment, POA, chronic. Patient minimally verbal in Beninese, appreciate Cousin to communicate. Hyperglycemia, POA, chronicity unknown. HA1c6.1, no fsg checking, stop lispro Sepsis, POA, source: intraabdominal infection with liver abscess, perforated appendix. resolved Code Status: FULL CODE, as per previous provider, Tiny voiced wanting to be allowed to pass naturally. Disposition: home with 16/12 care, 10/16 surgery f/u 10/22ish and ID f/u 10/22 or 10/30 GI Prophylaxis: H2 joshua VTE Mechanical Devices: Intermittant Pneumatic CD Resuscitation Status: CPR: Attempt Resuscitation Woody Vela MD October 15, 2016 14:29
--- NOTE | 2016-10-15 14:52 | NUR ---
Social Work Note: Readiness for Discharge Data& Assessment: EMR reviewed. Pt is on day 12 of hospitalization for liver abscess per H&P. Pt is not medically ready for discharge, anticipate 1-2 more days. PT has seen pt, pt walked 300 feet at last assessment. ID has signed off. Pt has been transitioned to an oral abx regimen. Per MD in rounds, pt will discharge with drain in place. MD feels that pt's family would be able to be trained to manage the drain. Pt will have multiple outpt follow up appointments. GAYLE received call from Melodie (pt's cousin) [phone] regarding discharge plan. Melodie had numerous medical questions for the MD, GAYLE facilitated conversation with and Melodie. Per Melodie, pt and family is in the middle of moving and Melodie is concerned that pt does not have a safe living environment as the living space is [place] and disorganized. GAYLE discussed caregivers and temporary placement at a facility, but Melodie states pt has no money and pt is self-pay. GAYLE spoke with Melodie regarding [facility] application, Melodie states that she will be able to assist pt and pt's cousin with completing this application. GAYLE also printed out a [place] copy of the [place] $4 medication list to provide to Melodie tomorrow. Melodie is going to be at the hospital tomorrow morning, GAYLE to meet with her at bedside regarding these resources and applications. GAYLE will also discuss establishment of primary care at [facility]. T/C to [facility]. Karina with [facility] informed GAYLE that pt's application with [facility] Medicaid is pending and will be submitted when pt discharges. Karina requested that GAYLE update her when pt discharges. T/C to [facility]. [facility] informed GAYLE and [facility] Specialist that they are able to accept pt's without formal ID as they "do not turn anyone away." They also have prescription assistance and sliding fee scale. Plan: Anticipated discharge home with family via POV when medically ready. SW to provide resources to Melodie outlined above, establish pt's primary care at [facility]. SW to update [facility] when pt discharges. SW will continue to follow. Marisa Abreu, AIR QUALITY TECHNICIAN
--- NOTE | 2016-10-15 15:03 | NUR ---
GI/ACTIVITY Patient has no complaints of pain, nausea/vomiting. Lap sites are healing well with steri strips intact. T drain to right abdomen is intact with light iqbal colored drainage in bag. Patient is impulsive and forgets to use call light for assistance. Gait has been steady back and forth to bathroom. [place] alarm in place on bed and in chair. Spoke with Judy, cousin and caregiver of patient, and explained that the MD wants patient to discharge with drain in place and offered to show her how to flush it. Family member stated she had already done so and is familiar with it. Care continues.
[2016-10-15 15:59] VITALS: BP 103/68; PULSE 110; RESP 16; O2SAT 99
[2016-10-15] MEDS: oxyCODONE-Acetamin 10-325 mg Tablet PO PRN ×2 (16:52→21:36)
[2016-10-15 20:25] VITALS: BP 105/71; PULSE 103; RESP 20; O2SAT 100
[2016-10-16] MEDS: Sodium Chloride LOK Flush 10 mL Syringe IVFLUSH SCH ×5 (00:26→17:26)
[2016-10-16] MEDS: oxyCODONE-Acetamin 10-325 mg Tablet PO PRN ×3 (03:33→17:35)
--- NOTE | 2016-10-16 03:46 | NUR ---
Activity/Pain Pt up to BR and git is steady this shift. RAÚL alarm in place due to Pt impulsiveness and forgets to use call light. Pt reported pain x2 this shift ad rec'd PRN percocet per orders. T drain in place, flushed, dressing CDI, lap sites healing. Pt had good oral intake this shift. Care continues
[2016-10-16 05:25] VITALS: BP 101/67; PULSE 108; RESP 20; O2SAT 97
[2016-10-16] MEDS: Polyethylene Glycol (PEG) 17 Gm Powder PO SCH ×2 (08:30→20:30)
--- NOTE | 2016-10-16 11:37 | PCM.PNMED ---
Subjective Date of Service October 16, 2016 Subjective Patient sitting up in chair, eating, but I asked her if she is in pain in [place]alan she says no. I asked her if she needs anything in [place] and she also replies no. Exam Vital Signs Vital Sign - Last Date Time Temp Pulse Resp B/P Pulse Ox O2 Delivery O2 Flow Rate FiO2 10/16/16 05:25 37.3 108 20 101/67 97 Room Air Intake and Output 10/15/16 10/15/16 10/16/16 Cumulative From/Thru 15:00 23:00 07:00 10/02/16 23:14 - 10/16/16 06:33 Intake Total 141 ml 1720 ml 800 ml 66658 ml Output Total 1200 ml 1485 ml 54245 ml Balance 141 ml 520 ml -685 ml -3185 ml Intake Oral 1720 ml 800 ml 11457 ml IV Total 141 ml 20458 ml Packed Cells 370 ml Output Urine Total 1200 ml 1450 ml 59320 ml Stool Total 300 ml Emesis 50 ml Drainage Total 35 ml 1018 ml Estimated Blood Loss 100 ml # Voids 2 10 # Bowel Movements 1 0 6 Exam Gen.- A+ responsive no apparent distress. Thin female sitting up eating breakfast Eyes- open conjunctiva clear, pupils equal nonicteric ENT- ears normal, nose normal, hearing intact Neck- supple/trach midline CVS-rate within normal limits Lungs-regular, nonlabored no accessory muscle usage GI-flat Musc- moving 4 no obvious deformity Neuro- cranial nerves II through XII intact to gross examination, nonfocal Skin- warm and dry, no rashes/lesions Psych- smiling, Lab and Diagnostics Result Diagram: 10/14/1650910/14/16509 Microbiology Blood cultures pending X-Rays, CTs and MRIs CT abdomen Pelvis: Official report pending [place] Read: Large Heterogeneous liver mass that extends to the capsule. Crescentic shaped fluid and air collection in the subhepatic space along the right lateral abdominal wall may reflect ruptured intrahepatic mass or abscess; cannot entirely exclude abscess from tip appendicitis, though this is felt less likely. Distended urinary bladder with pelvocaliectasis bilaterally. Severe fecal loading of the colon. Possible right lower lobe pneumonia. Chest Xray portable Personal Read: Patient rotated right, trachea midline, poor inspiratory effort on film, RLL consolidation vs atelectasis, loop of fecal loaded bowel extending under left subdiaphragmatic region. Please correlate clinically Assessment & Plan 56yo developmentally impaired Guatemalan speaking female who was admitted 10/03 with a 4 day history of anorexia with increasing abdominal pain. CT imaging in the ED reveals likely hepatic abscess with concurrent fever, leukocytosis, and Tachycardia. 10/14 medically complicated patient for the first time who cannot speak still having abdominal issues but bowels moving she is eating completing a course of antibiotics. We are beginning to craft discharge plans with her family. 10/15 family needs training for drain management. We need to see how the patient does on oral antibiotics/oral pain meds overnight. Hopefully we can discharge her with home health and follow-up appointments 10/16. 10/16 patient appears comfortable we are working on disposition. She is medically ready for discharge however her family is in the midst of move and heart liquid to care for her conditions are suboptimal for now. It appears she will be a discharge delay for that reason. She is on oral antibiotics and has only one drain which she is going to be discharged with in place. large hepatic abscess, complicated by perforated appendix s/p drainage by on 10/04, prelim culture showed E.coli, anaerobes. Repeat abd CT10/08 showed Small scattered residual intrahepatic abscess sees with surrounding hepatitis in the right hepatic lobe posteriorly. s/p percutaneous drainage 10/09 by IR, successful, tolerated well. Tissue cultures 10/04 showed E.coli sensitive to carbapenem, anaerobes -surgery 2 of 3 drains out 10/15, t tube to remain in place f/u out pt -s/p Vanco, flagyl, zosyn, Meropenem, [id number] -10/15, patient to finish at least a 4 week course of Cipro/Flagyl by mouth and can follow up with Dr. Blue infectious disease in his office 10/22 or 10/30 -. IV Dilaudid for pain control, Percocet 10/325 one to 2 by mouth every 4 when necessary to get her home. Microcytic anemia, POA, chronicity unknown. stable, Likely anemia of chronic disease with high ferritin and low iron stores. -iron low normal 10/03 ileus,resolved - resolved 4BMs 10/14 -continue aggressive bowel regimen to Miralex, senna, colace, enema as needed -advanced diet as tolerate per surgery Developmental impairment, POA, chronic. Patient minimally verbal in [place], appreciate Cousin to communicate. Hyperglycemia, POA, chronicity unknown. HA1c6.1, no fsg checking, stop lispro Sepsis, POA, source: intraabdominal infection with liver abscess, perforated appendix. resolved Code Status: FULL CODE, as per previous provider, Tiny voiced wanting to be allowed to pass naturally. Disposition: home with 16/12 care, 10/16 surgery f/u 10/22ish and ID f/u 10/22 or 10/30 GI Prophylaxis: H2 joshua VTE Mechanical Devices: Intermittant Pneumatic CD Resuscitation Status: CPR: Attempt Resuscitation Woody Vela MD October 16, 2016 11:37
--- NOTE | 2016-10-16 12:17 | PCM.DIMED ---
Discharge Instructions Date of Service October 16, 2016 Dates of Hospitalization October 03, 2016 at 03:29 Discharge Diagnosis Discharge Diagnosis Sepsis from Hepatic abscess S/P perforated appendix Diet Discharge Diet: No restrictions Activity Discharge Activity: No restrictions Call your provider Call your provider for: Fever or Chills, Vomitting, Excessive diarrhea Patient Instructions Patient Instructions Needs a primary care provider. Needs antibiotics as prescribed starting immediately upon discharge. Drain management asked to be taught by nursing staff prior to discharge. Follow-up plan Following up needs referral to [facility], follow up with Dr. Blue 10/[address] Villatoro 10/22 Follow-up Provider: Isaak Villatoro MD Follow-up with PCP in: 1 week Provider: Todd Blue MD Follow-up in: Other (1-2wks) Additional Information Referral to [facility] next available which turns out to be in November. Would be beneficial already have PCP. If she has problems she needs to come to urgent care or to the emergency room. Woody Vela MD October 16, 2016 12:17
[2016-10-16] MEDS ORDERED: ONDA4TAB12 PO (12:22)
[2016-10-16] MEDS ORDERED: OXYC-466 PO (12:22)
[2016-10-16] MEDS ORDERED: METR500T PO (12:22)
[2016-10-16] MEDS ORDERED: Docusate Sodium PO (12:22)
[2016-10-16] MEDS ORDERED: POLY17PO6 PO (12:22)
[2016-10-16] MEDS ORDERED: CIPR-232 PO (12:22)
[2016-10-16] MEDS ORDERED: SENN-133 PO (12:22)
[2016-10-16] MEDS ORDERED: FAMO20T PO (12:22)
--- NOTE | 2016-10-16 12:48 | PCM.DC.MED ---
Discharge Summary Date of Service October 16, 2016 Dates of Hospitalization Date of Hospital Admission October 03, 2016 at 03:29 Date of Discharge: October 16, 2016 Providers: Admitting Physician: Lurdes Stuart DO Primary Care Physician: Nopcp Attending Physician: Lurdes Stuart DO Diagnosis at Time of Discharge Diagnosis at Time of Discharge Sepsis from Hepatic abscess S/P perforated appendix Consultations Shauna, carina. Blue, infectious disease. Procedures XRay, CTs & MRIs CT ABDOMEN WITH CONTRAST ([id number]) 1. Resolving intrahepatic/perihepatic abscesses within/adjacent to the right hepatic lobe posteriorly, containing surgically placed drain. 2. Increased gas/fluid collection within the right hemiabdomen laterally. 3. Small scattered residual intrahepatic abscess sees with surrounding hepatitis in the right hepatic lobe posteriorly. 4. Bilateral lower lobe atelectasis versus pneumonia with small bilateral pleural effusions. 5. Findings discussed with Dr. Todd Blue on 10.08.16 at 1547 hrs. Dictated by: Jacquie Ha M.D. on 10/08/2016 at 15:36 CT abdomen Pelvis: Official report pending Night Jak Read: Large Heterogeneous liver mass that extends to the capsule. Crescentic shaped fluid and air collection in the subhepatic space along the right lateral abdominal wall may reflect ruptured intrahepatic mass or abscess; cannot entirely exclude abscess from tip appendicitis, though this is felt less likely. Distended urinary bladder with pelvocaliectasis bilaterally. Severe fecal loading of the colon. Possible right lower lobe pneumonia. Chest Xray portable Personal Read: Patient rotated right, trachea midline, poor inspiratory effort on film, RLL consolidation vs atelectasis, loop of fecal loaded bowel extending under left subdiaphragmatic region. Please correlate clinically Invasive Procedures PROCEDURE: CT abscess drain placement FINDINGS: At the conclusion of the procedure, the pigtail of the drainage catheter is within the abscess cavity. IMPRESSION: 8 Mexican percutaneous pigtail drainage of right flank abscess Dictated by: Keiko Lagos M.D. on 10/09/2016 at 15:13 Date of Service: October 04, 2016 Pre Operative Diagnosis Perforated appendicitis, liver abscess Post Operative Diagnosis Same Procedure: Laparoscopic appendectomy, laparoscopic drainage of liver abscess Surgeon and Service Delivery Manager: Surgeon: Isaak Villatoro M.D. Assistants: Kolton Pretty PA-C Indication for Procedure 56-year-old developmentally delayed woman who presented to the emergency department with 4 days of abdominal pain, fevers, vomiting. She had sepsis with tachycardia, fevers, and leukocytosis. Her imaging workup showed evidence of perforated appendicitis with a small intra-abdominal abscess containing fluid and gas, but also a large right posterior hepatic abscess measuring 11 cm. After discussion of risks and benefits with her family, informed consent was obtained for laparoscopic appendectomy with drainage of liver abscess. Findings: The appendix was perforated with a chronic abscess in the right paracolic gutter , which was cultured. The right posterior hepatic abscess was drained and cultured separately, and fluid was sent for bacterial culture, fungal culture, acid-fast bacilli, ova and parasites. Brief History Tiny Hill is a 56 year old developmentally delayed woman with early onset dementia who is minimally verbal in Dominican who presents with a 4 day history of increasing abdominal pain and anorexia. The history is obtained from family members in the room who are her primary care givers. The relate that 4 days ago the patient began to manifest decreased appetite and fatigue with complaints of mild abdominal pain. Other members of the family had been suffering from a diarrheal illness so her family did not seek evaluation until today when the patient complained of acutely worsening abdominal pain. The patient denies nausea, changes in bowel or bladder habits, or vomiting. She endorses diffuse abdominal pain most acute in the RUQ and suprapubic region. In the ED the patient was febrile upon presentation with a temp of 38.8, leukocytosis at 14.8 with neutrophil predominance, with mildly elevated ALT and Alk Phos. CT imaging revealed a hypodense region in the right inferior hepatic lobe consistent with either abscess, drained abscess, or malignancy, also noted was a grossly distended bladder; the patient was placed on Vanco and Zosyn given IVF and a Sharma cath was placed. Hospital Course 56yo developmentally impaired Dominican speaking female who was admitted 10/03 with a 4 day history of anorexia with increasing abdominal pain. CT imaging in the ED reveals likely hepatic abscess with concurrent fever, leukocytosis, and Tachycardia. 10/14 medically complicated patient for the first time who cannot speak still having abdominal issues but bowels moving she is eating completing a course of antibiotics. We are beginning to craft discharge plans with her family. 10/15 family needs training for drain management. We need to see how the patient does on oral antibiotics/oral pain meds overnight. Hopefully we can discharge her with home health and follow-up appointments 10/16. 10/16 patient appears comfortable we are working on disposition. She is medically ready for discharge however her family is in the midst of move and heart liquid to care for her conditions are suboptimal for now. It appears she will be a discharge delay for that reason. She is on oral antibiotics and has only one drain which she is going to be discharged with in place. large hepatic abscess, complicated by perforated appendix s/p drainage by on 10/04, prelim culture showed E.coli, anaerobes. Repeat abd CT10/08 showed Small scattered residual intrahepatic abscess sees with surrounding hepatitis in the right hepatic lobe posteriorly. s/p percutaneous drainage 10/09 by IR, successful, tolerated well. Tissue cultures 10/04 showed E.coli sensitive to carbapenem, anaerobes -surgery 2 of 3 drains out 10/15, t tube to remain in place f/u out pt -s/p Vanco, flagyl, zosyn, Meropenem, [id number] -10/15, patient to finish at least a 4 week course of Cipro/Flagyl by mouth and can follow up with Dr. Blue infectious disease in his office 10/22 or 10/30 -. IV Dilaudid for pain control, Percocet 10/325 one to 2 by mouth every 4 when necessary to get her home. Microcytic anemia, POA, chronicity unknown. stable, Likely anemia of chronic disease with high ferritin and low iron stores. -iron low normal 10/03 ileus,resolved - resolved 4BMs 10/14 -continue aggressive bowel regimen to Miralex, senna, colace, enema as needed -advanced diet as tolerate per surgery Developmental impairment, POA, chronic. Patient minimally verbal in Dominican, appreciate Cousin to communicate. Hyperglycemia, POA, chronicity unknown. HA1c6.1, no fsg checking, stop lispro Sepsis, POA, source: intraabdominal infection with liver abscess, perforated appendix. resolved Code Status: FULL CODE, as per previous provider, Tiny voiced wanting to be allowed to pass naturally. Disposition: home with 16/12 care, 10/16 surgery f/u 10/22ish and ID f/u 10/22 or 10/30 Exam Vital Signs (Last) Date Time Temp Pulse Resp B/P Pulse Ox O2 Delivery O2 Flow Rate FiO2 10/16/16 05:25 37.3 108 20 101/67 97 Room Air Exam Gen.- A+ responsive no apparent distress. Thin female sitting up eating breakfast Eyes- open conjunctiva clear, pupils equal nonicteric ENT- ears normal, nose normal, hearing intact Neck- supple/trach midline CVS-rate within normal limits Lungs-regular, nonlabored no accessory muscle usage GI-flat Musc- moving 4 no obvious deformity Neuro- cranial nerves II through XII intact to gross examination, nonfocal Skin- warm and dry, no rashes/lesions Psych- smiling, Test 10/02/16 00:10 10/03/16 00:10 10/03/16 01:50 10/03/16 04:47 Lipase 40U/L (13-60) Hemoglobin A1c 6.1% (4.8-5.6) Iron Level 8ug/dL (35-150) Total Iron Binding Capacity ug/dL (250-450) Percent Iron Saturation 32%sat (15-50) Unsaturated Iron Binding < 16.8ug/dL Urine Color Yellow (YELLOW) Urine Appearance Clear (CLEAR,HAZY) Urine pH 7.0 (5.0-8.0) Urine Specific [place] 1.028 (1.003-1.035) Urine Protein Negativemg/dL (NEG,TRACE) Urine Glucose (UA) Negativemg/dL (NEGATIVE) Urine Ketones Negativemg/dL (NEGATIVE) Urine Occult Blood Moderate (NEGATIVE) Urine Nitrite Negative (NEGATIVE) Urine Bilirubin Negative (NEGATIVE) Urine Urobilinogen 2.0mg/dL (NORMAL) Urine Leukocyte Esterase Negative (NEGATIVE) Urine RBC 11-50/hpf (0-2) Urine WBC 0-5/hpf (0-5) Urine Epithelial Cells Moderate/hpf (NONE-MOD) Urine Crystals None seen (NONE SEEN) Urine Bacteria Few/hpf (NONE-FEW) Urine Hyaline Casts None/lpf (NONE) Urine Granular Casts None seen (NONE SEEN) Urine Waxy Casts None seen (NONE SEEN) Urine Red Blood Cell Casts None seen (NONE SEEN) Urine White Blood Cell Casts None seen (NONE SEEN) Urine Mucus None seen (None Seen) Urine Trichomonas None seen (NONE SEEN) Urine Yeast None (NONE SEEN) Urinalysis Comment None Urine Culture Reflexed Not indicated Hematology Comments Ferritin 289ng/mL (13-150) Test 10/04/16 03:55 10/04/16 21:24 10/06/16 08:00 10/09/16 09:55 Tumor Marker Alpha Fetoprotein 1.8ng/mL (0.0-8.3) Amebiasis Antibody Positive (Negative) Band Neutrophils % 9% (1-5) Lactic Acid Level 1.9mmol/L (0.4-2.0) Direct Bilirubin 0.2mg/dL (0.0-0.3) Prothrombin Time 10.7sec (8.1-12.5) Prothromb Time International Ratio 1.00ratio Activated Partial Thromboplast Time 27.2sec (22.8-33.0) Test 10/12/16 05:20 10/14/16 05:10 Phosphorus Level 3.7mg/dL (2.5-4.9) Magnesium Level 2.1mg/dL (1.6-2.6) White Blood Count 8.7th/mm3 (3.8-10.1) Red Blood Count 3.55mil/mm3 (3.90-5.20) Hemoglobin 9.1g/dL (12.0-15.6) Hematocrit 29.5% (35.0-46.0) Mean Corpuscular Volume 83.1fL (81-100) Mean Corpuscular Hemoglobin 25.6pg (27.0-35.0) Mean Corpuscular Hemoglobin Concent 30.8% (32.0-37.0) Red Cell Distribution Width 18.4% (12.3-15.4) Platelet Count 462bil/L (150-400) Neutrophils (%) (Auto) 68.3% (40-74) Lymphocytes (%) (Auto) 18.9% (14-46) Monocytes (%) (Auto) 10.4% (4-12) Eosinophils (%) (Auto) 1.3% (0-5) Basophils (%) (Auto) 0.6% (0-3) Sodium Level 134mEq/L (134-144) Potassium Level 4.4mEq/L (3.5-5.2) Chloride Level 99mEq/L (97-108) Carbon Dioxide Level 23mmol/L (18-29) Blood Urea Nitrogen 5mg/dL (6-24) Creatinine < 0.30mg/dL (0.57-1.00) Estimat Glomerular Filtration Rate mL/min (>59) Glucose Level 106mg/dL (60-99) Calcium Level 8.1mg/dL (8.5-10.1) Total Bilirubin 0.3mg/dL (0.0-1.2) Aspartate Amino Transf (AST/SGOT) 9U/L (0-50) Alanine Aminotransferase (ALT/SGPT) 5U/L (0-32) Alkaline Phosphatase 135U/L (25-150) Total Protein 6.8g/dL (6.4-8.4) Albumin 2.2g/dL (3.4-5.0) Procalcitonin 0.09ng/mL (0.00-0.08) Microbiology Results Blood cultures pending Discharge Medications Discharge Medications ([Docusate Sodium]) 250 MG CAPSULE 250 MG PO BID Prescribed by: SABA VELA MD Ciprofloxacin (Cipro) 250 Mg Tablet 750 MG PO BID Prescribed by: SABA VELA MD Famotidine (Pepcid) 20 Mg Tablet 20 MG PO Q12 Prescribed by: SABA VELA MD Metronidazole (Flagyl) 500 Mg Tablet 500 MG PO BIDWM Prescribed by: SABA VELA MD Polyethylene Glycol 3350 (Miralax) 17 Gm Powd.pack 17 GM PO BID Prescribed by: SABA VELA MD Sennosides (Senna) 8.6 Mg Tablet 17.2 MG PO BID Prescribed by: SABA VELA MD As needed Ondansetron ODT (Ondansetron ODT) 4 Mg Tab.rapdis 4-8 MG PO Q8H PRN PRN For Nausea Prescribed by: SABA VELA MD oxyCODONE-Acetaminophen 10-325 mg (oxyCODONE-Acetaminophen 10-325 mg) 1 Each Tablet 1-2 TAB PO Q3H PRN PRN For Pain Prescribed by: SABA VELA MD Followup Plan Disposition: Patient being discharged to home to the care of her cousin who is her primary caregiver Follow-up plan Following up needs referral to [facility], follow up with Dr. Blue 10/[address] Villatoro 10/22 Discharge Diet: No restrictions Discharge Activity: No restrictions Patient Instructions Needs a primary care provider. Needs antibiotics as prescribed starting immediately upon discharge. Drain management asked to be taught by nursing staff prior to discharge. Follow-up Provider: Isaak Villatoro MD Follow-up with PCP in: 1 week Provider: Todd Blue MD Follow-up in: Other (1-2wks) Time spent > 30 minutes Attending Statement The family is in the midst of a move the discharge condition is suboptimal. That said they are moving 10/24 and the patient is medically stable at this point in time for discharge. There is no medical justification for ongoing hospitalization in 1-2 more days much less another 10 to they are settled. copies to: [facility] Saba Vela MD October 16, 2016 12:48
[2016-10-16 12:59] VITALS: BP 100/67; PULSE 128; RESP 18; O2SAT 100
--- NOTE | 2016-10-16 14:38 | NUR ---
Scheduled [facility] establishment appointment for November 14 check in at 245PM for a 315PM appointment with . Patient will need to bring any proof income if any, so they can determine financial assistance. Updated CUSTOMER SERVICES COORDINATOR
--- NOTE | 2016-10-16 15:09 | NUR ---
Social Work Note: Discharge Data& Assessment: EMR reviewed. Pt is on day 13 of hospitalization for liver abscess per H&P. Pt is medically ready for discharge. Melodie, Felecia, and pt all live together in [place]. They are in the process of moving to [place] but this would not be completed until next week. MD has cleared pt and feels that she will be able to return home with family assisting. RN to train family regarding drain prior to discharge. Melodie was not available at the hospital earlier today, SW spoke with her by phone regarding discharge plan. Melodie is agreeable to assisting Felecia with the jaron care application. Melodie requested SW make PCP appointment at [facility]. Pt has an establishment of care appointment at [facility] in [place] on November 14 at 245 with MD Barber. GAYLE spoke with RN regarding resources to provide Melodie and family including [facility] appointment, jaron care application, and $4 med list for Caryn. RN to review these resources with Melodie and Felecia when they arrive at the hospital to review pt's discharge, as they are arriving after 1630 when SW leaves for the day. T/C to [facility]. GAYLE notified Karina at [facility] of patient's discharge. Karina continues to work on pt's [employer]. Plan: Pt to discharge home with family to transport via POV. [facility] has been updated regarding pt's discharge. RN to provide resources to pt's family. ADEEL Hernandez
--- NOTE | 2016-10-16 19:21 | NUR ---
activity/pain Pt up SBA in room, spent most the day in the chair. Pain tolerable with PO Percocet. Drain flushed this am.
--- NOTE | 2016-10-16 19:22 | NUR ---
Discharge? Pt received discharge orders, family was called, stated they could not bring her home, stated they would be in at 1600 to talk about it. Family has not shown up this shift. notified.
[2016-10-16 19:26] VITALS: BP 99/69; PULSE 114; RESP 18; O2SAT 98
[2016-10-17] MEDS: Sodium Chloride LOK Flush 10 mL Syringe IVFLUSH SCH ×4 (00:30→09:03)
[2016-10-17 05:01] VITALS: BP 108/74; PULSE 118; RESP 16; O2SAT 97
--- NOTE | 2016-10-17 05:23 | NUR ---
activity pt has been resting in bed this shift. she has denied pain when asked and has not appeared to be uncomfortable. T-drain flushed. care continues
[2016-10-17] MEDS: Polyethylene Glycol (PEG) 17 Gm Powder PO SCH (08:30)
[2016-10-17] MEDS: oxyCODONE-Acetamin 10-325 mg Tablet PO PRN (09:04)
[2016-10-17 09:21] VITALS: BP 104/73; PULSE 124; RESP 16; O2SAT 97
[2016-10-17 10:00] VITALS: PULSE 108
--- NOTE | 2016-10-17 10:28 | PCM.PNMED ---
Subjective Date of Service October 17, 2016 Subjective Patient up in chair, eating 100% breakfast and ambulating. No new complaints reported by staff. Family did not come pick the patient up yesterday so discharge is delayed. Exam Vital Signs Vital Sign - Last Date Time Temp Pulse Resp B/P Pulse Ox O2 Delivery O2 Flow Rate FiO2 10/17/16 09:21 36.8 124 16 104/73 97 Room Air Intake and Output 10/16/16 10/16/16 10/17/16 Cumulative From/Thru 15:00 23:00 07:00 10/02/16 23:14 - 10/17/16 06:07 Intake Total 2156 ml 500 ml 96429 ml Output Total 900 ml 1400 ml 05850 ml Balance 1256 ml -900 ml -2829 ml Intake Oral 2156 ml 500 ml 68988 ml IV Total 61966 ml Packed Cells 370 ml Output Urine Total 900 ml 1400 ml 24308 ml Stool Total 300 ml Emesis 50 ml Drainage Total 1018 ml Estimated Blood Loss 100 ml # Voids 2 12 # Bowel Movements 1 7 Exam Gen.- A+ responsive no apparent distress. Thin female sitting up eating breakfast Eyes- open conjunctiva clear, pupils equal nonicteric ENT- ears normal, nose normal, hearing intact Neck- supple/trach midline CVS-rate within normal limits Lungs-regular, nonlabored no accessory muscle usage GI-flat Musc- moving 4 no obvious deformity Neuro- cranial nerves II through XII intact to gross examination, nonfocal Skin- warm and dry, no rashes/lesions Psych- smiling, Lab and Diagnostics Result Diagram: 10/14/16 0510 10/14/16 0510 Microbiology Blood cultures pending X-Rays, CTs and MRIs CT ABDOMEN WITH CONTRAST ([id number]) 1. Resolving intrahepatic/perihepatic abscesses within/adjacent to the right hepatic lobe posteriorly, containing surgically placed drain. 2. Increased gas/fluid collection within the right hemiabdomen laterally. 3. Small scattered residual intrahepatic abscess sees with surrounding hepatitis in the right hepatic lobe posteriorly. 4. Bilateral lower lobe atelectasis versus pneumonia with small bilateral pleural effusions. 5. Findings discussed with Dr. Todd Blue on 10.08.16 at 1547 hrs. Dictated by: Jacquie Ha M.D. on 10/08/2016 at 15:36 CT abdomen Pelvis: Official report pending [place] Read: Large Heterogeneous liver mass that extends to the capsule. Crescentic shaped fluid and air collection in the subhepatic space along the right lateral abdominal wall may reflect ruptured intrahepatic mass or abscess; cannot entirely exclude abscess from tip appendicitis, though this is felt less likely. Distended urinary bladder with pelvocaliectasis bilaterally. Severe fecal loading of the colon. Possible right lower lobe pneumonia. Chest Xray portable Personal Read: Patient rotated right, trachea midline, poor inspiratory effort on film, RLL consolidation vs atelectasis, loop of fecal loaded bowel extending under left subdiaphragmatic region. Please correlate clinically Assessment & Plan 56yo developmentally impaired American speaking female who was admitted 10/03 with a 4 day history of anorexia with increasing abdominal pain. CT imaging in the ED reveals likely hepatic abscess with concurrent fever, leukocytosis, and Tachycardia. 10/14 medically complicated patient for the first time who cannot speak still having abdominal issues but bowels moving she is eating completing a course of antibiotics. We are beginning to craft discharge plans with her family. 10/15 family needs training for drain management. We need to see how the patient does on oral antibiotics/oral pain meds overnight. Hopefully we can discharge her with home health and follow-up appointments 10/16. 10/16 patient appears comfortable we are working on disposition. She is medically ready for discharge however her family is in the midst of move and heart liquid to care for her conditions are suboptimal for now. It appears she will be a discharge delay for that reason. She is on oral antibiotics and has only one drain which she is going to be discharged with in place. 10/17 patient was discharged yesterday but no family arrived to pick her up. She continues to be medically stable. No changes to management. large hepatic abscess, complicated by perforated appendix s/p drainage by on 10/04, prelim culture showed E.coli, anaerobes. Repeat abd CT10/08 showed Small scattered residual intrahepatic abscess sees with surrounding hepatitis in the right hepatic lobe posteriorly. s/p percutaneous drainage 10/09 by IR, successful, tolerated well. Tissue cultures 10/04 showed E.coli sensitive to carbapenem, anaerobes -surgery 2 of 3 drains out 10/15, t tube to remain in place f/u out pt -s/p Vanco, flagyl, zosyn, Meropenem, [id number] -10/15, patient to finish at least a 4 week course of Cipro/Flagyl by mouth and can follow up with Dr. Blue infectious disease in his office 10/22 or 10/30 -. IV Dilaudid for pain control, Percocet 10/325 one to 2 by mouth every 4 when necessary to get her home. Microcytic anemia, POA, chronicity unknown. stable, Likely anemia of chronic disease with high ferritin and low iron stores. -iron low normal 10/03 ileus,resolved - resolved 4BMs 10/14 -continue aggressive bowel regimen to Miralex, senna, colace, enema as needed -advanced diet as tolerate per surgery Developmental impairment, POA, chronic. Patient minimally verbal in American, appreciate Cousin to communicate. Hyperglycemia, POA, chronicity unknown. HA1c6.1, no fsg checking, stop lispro Sepsis, POA, source: intraabdominal infection with liver abscess, perforated appendix. resolved Code Status: FULL CODE, as per previous provider, Tiny voiced wanting to be allowed to pass naturally. Disposition: home with 16/12 care, 10/16 surgery f/u 10/22ish and ID f/u 10/22 or 10/30 GI Prophylaxis: H2 joshua VTE Mechanical Devices: Intermittant Pneumatic CD Resuscitation Status: CPR: Attempt Resuscitation Woody Vela MD October 17, 2016 10:28
--- NOTE | 2016-10-17 12:06 | NUR ---
Social Work attempted to contact MOISESDarien Aguileragina rene regarding pt's discharge. GAYLE received no answer and no voicemail on the first call. GAYLE left a voicemail after the second call, left message requesting return call. ADEEL Hernandez Addendum: 10/17/16 at 1258 by RYAN CARDONA SS GAYLE made contact with Melodie Marvin [phone] (daughter of Melodie [phone]) regarding pt's discharge. GAYLE stated that pt is medically ready for discharge. Melodie informed GAYLE that she will let her mother Melodie know that pt is ready. Daughter Melodie was not able to write down phone number, GAYLE requested that mother Melodie [phone] call the hospital and request to speak with GAYLE. GAYLE awaits call from pt's MARÍA Sewell. GAYLE attempted to contact Judy [phone] regarding pt's discharge but there was no answer and no voicemail. ADEEL Hernandez
--- NOTE | 2016-10-17 14:11 | NUR ---
Social Work- Discharge Data: Pt is on day 14 of hospitalization for liver abscess per H&P. SW met with pt and family Susannah, Judy, and Felipa. Susannah declined SW using freelance interpreter/translator services or language line. The family shared concerns regarding pt's discharge plan, home condition. The family is moving to [place] soon, they state they are in transition. They also have concerns over the home's cleanliness. SW validated these concerns. SW explained that pt is medically cleared to leave the hospital and explained that pt is ambulating over 300 feet, eating 100% of her meals, on oral abx, and pt's T drain is able to be managed by family. SW explained that although [facility] is working on financial assistance through [facility], this assistance is limited to the time that [facility] is treating pt's medical needs. SW confirmed that family will be able to manage T drain. Judy and Susannah both stated they have experience caring for a T drain, requested that utilization review nurse this with Calli this evening. SW worked to problem solve with the family regarding alternate locations for the pt to reside while they are moving. Judy and Susannah state that pt is most comfortable with Judy and Melodie rather than living with a different family member. Susannah confirmed that pt's lack of formal ID and finances are a major concern for the family and limit their ability to use options such as private caregivers or respite at assisted living. SW explained resources to Susannah including [facility]aron care application, PCP appointment at [facility], $4 medication list, and the importance of pt receiving oral abx. Susannah requested the paperwork remain in pt's discharge folder so that Melodie and Judy can take it home with them this evening. SW updated RN regarding resources and placed the paperwork in the folder. Judy and Susannah stated understanding that pt is medically cleared for discharge, stated they will return home to clean pt's living space and are agreeable to picking pt up this evening at 1700. RN and UR RN updated of plan. RN agreeable to teaching pt's family about flushing T drain at discharge. Assessment: Pt who is medically cleared for discharge and who will return home with family members to care for her. Plan: Resources were reviewed with Susannah at bedside regarding jaron care application, $4 med list, and PCP appointment. These resources have been verbally explained to Melodie by phone and RN is aware of them as well. Family is working on cleaning up living space and are agreeable to picking pt up at 1700 this evening. RN to teach Judy and Melodie regarding the T drain, though there is verbal confirmation that they are familiar with this. Pt to discharge home with family to transport via POV. ADEEL Hernandez Addendum: 10/17/16 at 1537 by RYAN CARDONA SS GAYLE spoke with Melodie at bedside regarding pt's Rx's. Melodie stated that she has challenges filling Rx because pt does not have a formal ID. GAYLE offered to speak with [facility] pharmacy about filling Rx prior to pt's discharge. GAYLE spoke with [facility] regarding filling pt's Rx's before pt discharges, they are agreeable. GAYLE faxed Rx and Facesheet. GAYLE spoke with Melodie about picking up Rx as she is leaving the hospital, hard scripts will be provided, but there will be an out of pocket cost. Melodie declined having [facility] pharmacy fill these Rx at this time. Melodie stated she fills at [facility] because of the $4 medication list. [facility] updated. ADEEL Hernandez
[2016-10-17 15:17] VITALS: BP 100/66; RESP 18; O2SAT 98
--- NOTE | 2016-10-17 16:33 | NUR ---
DISCHARGE Percocet 1 tab PO has been effective for pain control. Patient denies pain on discharge. Tolerating liquids PO and her diet well. Denies nausea. No emesis noted. Denies SOB. Patient has been ambulating independently in the room with SBA. Tolerated activity well. Steri strips CDI and open to air. Cook drain in place with purulent, yellowish output noted. 30 ml noted prior to D/C. Instructed Leonardo on how to flush drain and to record output and bring it when they have their follow up appointment on October [address] Villatoro. Frederic Jeffrey is familiar on how to care and flush drain. She did not want to do a demonstration at this time. Pls. refer to previous notes. Judy was instructed RE: Drain flushing and she verbalized understanding at that time. Stating that she has been doing the same for her father. IV saline lock d/cd. Discharge instructions, care notes and prescription was given to the patient and her OZIEL-Leonardo and Leonardo verbalized understanding. Tiny Linares-Inspector [employer] was at the bedside during the whole discharge process. Jaelyn from also spoke to Leonardo with the communicable disease specialist at the bedside. (Copy of D/C is in the chart). Addendum: 10/17/16 at 1643 by MELCHOR HOBBS RN INSTRUCTED LEONARDO TO CALL DR. MARIE'S OFFICE ON FRIDAY IF SHE DOES NOT HEAR FROM THEM THIS WEEK.
== END 2016-10-17 15:43 | disposition home or self-care (01) | DRG 853 ==
LOC: SED 23:10 → PCC 10-03 03:29 → CCU 10-04 20:45 → OSC 10-05 12:10
PROVIDERS: ADMIT Internal Medicine; ATTEND Internal Medicine
PROC: 0F9140Z Drainage of Right Lobe Liver with Drainage Device, Percutaneous Endoscopic Approach (ICD-10-PCS; 2016-10-04)
PROC: 4A033R1 Measurement of Arterial Saturation, Peripheral, Percutaneous Approach (ICD-10-PCS; 2016-10-04)
PROC: 0DTJ4ZZ Resection of Appendix, Percutaneous Endoscopic Approach (ICD-10-PCS; principal; 2016-10-04 17:30)
PROC: 30233N1 Transfusion of Nonautologous Red Blood Cells into Peripheral Vein, Percutaneous Approach (ICD-10-PCS; 2016-10-05)
PROC: 0W9G30Z Drainage of Peritoneal Cavity with Drainage Device, Percutaneous Approach (ICD-10-PCS; 2016-10-09)
DX: A41.9 Sepsis, unspecified organism (principal); K75.0 Abscess of liver; K35.3 Acute appendicitis with localized peritonitis; E87.1 Hypo-osmolality and hyponatremia; K56.7 Ileus, unspecified; D50.9 Iron deficiency anemia, unspecified; R73.9 Hyperglycemia, unspecified; F03.90 Unspecified dementia, unspecified severity, without behavioral disturbance, psychotic disturbance, mood disturbance, and anxiety; B96.20 Unspecified Escherichia coli [E. coli] as the cause of diseases classified elsewhere; B96.6 Bacteroides fragilis [B. fragilis] as the cause of diseases classified elsewhere; F81.9 Developmental disorder of scholastic skills, unspecified

== ENCOUNTER 2016-10-31 09:16 | Emergency (ER) | payer MEDICAID ==
[~2016-10-31] VITALS: Ht 160 cm; Wt 49.5 kg
[~2016-10-31 09:16] MED LIST: CIPR-232 PO; Docusate Sodium PO; FAMO20T PO; METR500T PO; ONDA4TAB12 PO; OXYC-466 PO; POLY17PO6 PO; SENN-133 PO
[2016-10-31 09:21] VITALS: BP 144/76; PULSE 73; RESP 10; O2SAT 100
--- NOTE | 2016-10-31 09:41 | ED.REPORT ---
HPI-General Illness Date of Service Oct 31, 2016 ED Provider: Perez Villalobos DO Pt is a developmentally impaired Occitan speaking 56 year old female who presents to the ED complaining of incisional pain. On 10/16/16, the pt was discharged after admission on 10/03 for sepsis from Hepatic abscess s/p perforated appendix. Per cousin, pt denies fever, decreased appetite, decreased PO liquid intake. She did not scrap picker her prescribed medications aside from the antibiotics due to the cost. The pt had follow up appointments, but the pt did not go to the appointments. The drainage pouch has been unchanged since discharge and contains dark, brown, milky discharge. The wound dressing has also not been changed since the pt's discharge. She was advised to flush the discharge twice a day. History obtained from cousin due to developmental impairment. Nursing Notes Stated Complaint: WOUND SITE PAIN Chief Complaint: General Complaint Nursing Notes Reviewed: Yes Allergies: Coded Allergies: No Known Allergies (Unverified , 10/02/16) Scheduled ([Docusate Sodium]) 250 MG CAPSULE 250 MG PO BID Ciprofloxacin (Cipro) 250 Mg Tablet 750 MG PO BID Ciprofloxacin (Ciprofloxacin) 500 Mg Tablet 500 MG PO BID Famotidine (Pepcid) 20 Mg Tablet 20 MG PO Q12 Metronidazole (Flagyl) 500 Mg Tablet 500 MG PO BIDWM Metronidazole (Flagyl) 500 Mg Tablet 500 MG PO Q8H Polyethylene Glycol 3350 (Miralax) 17 Gm Powd.pack 17 GM PO BID Sennosides (Senna) 8.6 Mg Tablet 17.2 MG PO BID Scheduled PRN Docusate Sodium (Colace) 100 Mg Capsule 100 MG PO BID PRN PRN For Constipation Ondansetron ODT (Ondansetron ODT) 4 Mg Tab.rapdis 4-8 MG PO Q8H PRN PRN For Nausea Polyethylene Glycol 3350 (Miralax) 17 Gm Powd.pack 17 GM PO DAILY PRN PRN For Constipation oxyCODONE-Acetaminophen 10-325 mg (oxyCODONE-Acetaminophen 10-325 mg) 1 Each Tablet 1-2 TAB PO Q3H PRN PRN For Pain General Time Seen by MD: 09:39 Chief Complaint Abdominal pain Hx Obtained From: Other family... (Cousin) Arrived By: Walk-in Sudden in Onset?: No Onset Occurred: Onset unknown Symptom Duration: Constant Location: : Abdomen Quality: Painful Severity: Current: Moderate Severity: Maximum: Moderate Recent Healthcare: Recent doctor visit, Recent hospitalization, Recent testing , Previous diagnosis, Previous surgery, Prior workup Similar Sx Previous: No Past Medical History Past Medical History Developmental delay Dementia Past Surgical History On 10/16/16, the pt discharged after admission on 10/03 for sepsis from Hepatic abscess s/p perforated appendix Smoking History Unknown if Ever Smoker Social History Other Social History: Good social support Ambulatory Status Independent Review of Systems Full Review of Systems Constitutional: Denies: Fever Respiratory: Denies: Non-productive cough, Shortness of breath GI: Reports: Abdominal pain Complete sys rev & neg: except as marked. Physical Exam Vital Signs Vital Signs Date Time Temp Pulse Resp B/P Pulse Ox O2 Delivery O2 Flow Rate FiO2 10/31/16 13:29 16 128/88 99 Room Air 10/31/16 09:21 36.8 73 10 144/76 100 Room Air Initial VS: Reviewed Head / Eyes: Atraumatic, Normocephalic, PERRL ENT: Mucous membranes moist, Conjunctiva normal, No scleral icterus Neck: Supple, Full range of motion Respiratory: Breath sounds normal, Clear to auscultation, No respiratory distress Cardiovascular: Regular rate & rhythm, Heart sounds normal, Intact distal pulses Extremities: Vascular intact, Neuro intact Skin: Warm, Dry, No cyanosis Neurologic: Alert, Oriented, Nonfocal General/Constitutional: Awake, Alert, Cooperative, Not toxic appearing Appearance / Presentation: Positive: Cachectic, Frail Abdomen: Soft RUQ percutaneous drain Bag is full of dark, brown, and milky colored drainage Back: Full range of motion Mild right CVA tenderness, Interpretation & Diagnostics Lab Results Interpretation Result Diagram: 10/31/16 1003 10/31/16 1003 Test 10/31/16 10:03 10/31/16 11:51 White Blood Count 5.1th/mm3 (3.8-10.1) Red Blood Count 3.47mil/mm3 (3.90-5.20) Hemoglobin 8.9g/dL (12.0-15.6) Hematocrit 29.3% (35.0-46.0) Mean Corpuscular Volume 84.4fL (81-100) Mean Corpuscular Hemoglobin 25.6pg (27.0-35.0) Mean Corpuscular Hemoglobin Concent 30.4% (32.0-37.0) Red Cell Distribution Width 18.5% (12.3-15.4) Platelet Count 235bil/L (150-400) Neutrophils (%) (Auto) 52.1% (40-74) Lymphocytes (%) (Auto) 34.9% (14-46) Monocytes (%) (Auto) 10.3% (4-12) Eosinophils (%) (Auto) 1.9% (0-5) Basophils (%) (Auto) 0.6% (0-3) Sodium Level 143mEq/L (134-144) Potassium Level 3.3mEq/L (3.5-5.2) Chloride Level 106mEq/L (97-108) Carbon Dioxide Level 25mmol/L (18-29) Blood Urea Nitrogen 9mg/dL (6-24) Creatinine 0.44mg/dL (0.57-1.00) Estimat Glomerular Filtration Rate 213mL/min (>59) Glucose Level 100mg/dL (60-99) Lactic Acid Level 0.9mmol/L (0.4-2.0) Calcium Level 8.8mg/dL (8.5-10.1) Magnesium Level 2.2mg/dL (1.6-2.6) Total Bilirubin 0.2mg/dL (0.0-1.2) Aspartate Amino Transf (AST/SGOT) 15U/L (0-50) Alanine Aminotransferase (ALT/SGPT) 10U/L (0-32) Alkaline Phosphatase 102U/L (25-150) Total Protein 7.8g/dL (6.4-8.4) Albumin 3.1g/dL (3.4-5.0) Lipase 60U/L (13-60) Urine Color Straw (YELLOW) Urine Appearance Hazy (CLEAR,HAZY) Urine pH 7.0 (5.0-8.0) Urine Specific [place] 1.005 (1.003-1.035) Urine Protein Negativemg/dL (NEG,TRACE) Urine Glucose (UA) Negativemg/dL (NEGATIVE) Urine Ketones Negativemg/dL (NEGATIVE) Urine Occult Blood Trace (NEGATIVE) Urine Nitrite Negative (NEGATIVE) Urine Bilirubin Negative (NEGATIVE) Urine Urobilinogen Normalmg/dL (NORMAL) Urine Leukocyte Esterase Negative (NEGATIVE) Urine RBC 0-2/hpf (0-2) Urine WBC 0-5/hpf (0-5) Urine Epithelial Cells Occasional/hpf (NONE-MOD) Urine Crystals None seen (NONE SEEN) Urine Bacteria Few/hpf (NONE-FEW) Urine Hyaline Casts None/lpf (NONE) Urine Granular Casts None seen (NONE SEEN) Urine Waxy Casts None seen (NONE SEEN) Urine Red Blood Cell Casts None seen (NONE SEEN) Urine White Blood Cell Casts None seen (NONE SEEN) Urine Mucus None seen (None Seen) Urine Trichomonas None seen (NONE SEEN) Urine Yeast None (NONE SEEN) Urinalysis Comment None Urine Culture Reflexed Not indicated Hold Urine Received (Received) Lab Results Interpretation: Post void residual was 119 mL. Urine dip - negative CT Abd / Pelvis Interpretation MPRESSION: 1. New heterogeneous enhancement of the kidneys bilaterally. The findings are suspicious for pyelonephritis the differential includes an acute nonspecific nephritis from renal failure or sequelae of ischemia. No hydronephrosis or perinephric abscess collections. 2. Interval removal of the surgical drain with a decreased but persistent small posterior perihepatic abscess collection. 3. Pigtail drainage catheter are redemonstrated within a collection in the right paracolic gutter which demonstrates trace residual fluid with a small amount of gas, markedly decreased from the prior study. 4. Indistinct soft tissue and small calcifications adjacent to the tip of the appendix in proximity to the paracolic gutter collection likely reflecting sequelae of ruptured appendicitis. 5. Marked distention of the urinary bladder suggesting urinary retention or bladder outlet obstruction. 6. Decreased pleural effusions with minimal residual bilateral collections and mild compressive atelectasis. Dictated by: Kiran De La Vega M.D. on 10/31/2016 at 11:48 Study type: Abdominal CT IV contrast Interpretation / Wet Read by: Interpret - Radiologist Procedures Procedure Notes: Right upper quadrant percutaneous abdominal drain was removed under clean conditions at the bedside by myself. Re-Eval/Medical Decision Med Decision/Clinical Course Patient presents with abdominal pain near her percutaneous drain. It seems that her family did not scrap picker antibiotics but has not had any other sort of medical care in the. Since hospital discharge. Labs and CAT scan are overall reassuring. I do not think that she is clinically significant renal failure and evidence of urinary tract infection or pyelonephritis. She did void approximately a liter of urine and had a normal postvoid residual afterward. Clinically I think that she may be constipated. Given the complexity of her hospital stay in the very recent past I did consult general surgery who reviewed the CT scan and we discussed the case. It was recommended to remove the percutaneous drain, as performed by me at the bedside. Cipro and Flagyl as well as a bowel regimen were prescribed. A follow-up appointment was also made in the surgery clinic. Return and follow-up precautions given. Source of Hx: Old records Time of Eval: 12:12 Patient Status: Condition unchanged Re-Evaluation/Progress Note: Pt rechecked. Pt had mild right CVA tenderness. All questions were answered. Time of Eval: 12:40 Re-Evaluation/Progress Note: Pt rechecked. Discussed results, and plan to consult with surgeon. All questions were answered. Time of Eval: 13:08 Patient Status: Condition resolved Re-Evaluation/Progress Note: Pt rechecked. Informed pt of plan for discharge. Pt understands and agrees with plan for discharge. F/U instructions and RTER warnings given. All questions addressed. Consultation : Referral / Consult Name: Magan Gant MD Consulted With: Surgeon Call Returned at: 12:59 Qual Research Manager: Agrees with eval, Agrees with plan Note: Reviewed the case. Looked at and reviewed the CT scan. Recommends Cipro Flagyl for one more week. Recommends removing drain, and following up in week. Counseled Regarding: Diagnosis, Lab results, Need for follow-up, When/why to return to ED Discharge & Departure Primary Impression: Abdominal pain Abdominal location: unspecified location Qualified Code: R10.9 - Unspecified abdominal pain Additional Impression: Constipation Constipation type: unspecified constipation type Qualified Code: K59.00 - Constipation, unspecified Disposition: Home Discharge Condition All VS Reviewed: Yes Condition: Stable Additional Instructions: Your labs were normal today. We talked with the surgeon and he recommended removing the drain and taking antibiotics (Cipro Flagyl) for 1 more week. Also use medications for constipation. Follow up with the surgery clinic on November 07 at 245pm. Return to the Emergency Department if you experience worsening abdominal pain, fever, nausea, vomiting, or any other concerning symptoms. Los analisis salieron normales hoy. Hablamos con el cirujano y el recomendo sacarle el drenaje y que tome antibioticos(Cipro Flagyl) por 1 semana mas. Tambien que tome medicinas para el estrenimiento. Atienda la shelby de seguimiento con el cirujano a las 2:45pm el . Regrese a la janeen de emergencias si tiene mas dolor abdominal, fiebre, nausea ( asco), vomito or cualquier otros sintomas preocupantes. Referrals: Magan Gant MD [facility] Scribe Attestation Portions of this note were transcribed by David Hernandez and Yvonne Lovett. I, Dr. Villalobos personally performed the history, physical exam and medical decision-making; I reviewed and confirmed the accuracy of the information in the transcribed note. Signed by: David Hernandez and Yvonne Lovett, Scribe, 10/31/16 and 11:50 copies to: Magan Gant MD; [facility] Perez Villalobos DO Oct 31, 2016 09:40 Yvonne Rosado Oct 31, 2016 10:01 DAVID HERNANDEZ Oct 31, 2016 12:02
[2016-10-31] MEDS ORDERED: 0.9% Sodium Chloride 1,000 ML IV ONE (09:56)
[2016-10-31] MEDS ORDERED: Ketorolac 15 mg/mL Inj IVPUSH ONE (10:00)
[2016-10-31] MEDS ORDERED: Ondansetron 2 mg/mL 2 mL Inj IVPUSH PRN (10:00)
[2016-10-31 10:23] LABS: BASOPHILS % (AUTO) 0.6 % (0-3); EOSINOPHILS % (AUTO) 1.9 % (0-5); MONOCYTES % (AUTO) 10.3 % (4-12); Mean Corpuscular Hemoglobin 25.6 pg (27.0-35.0); Mean Corpuscular Volume 84.4 fL (81-100); NEUTROPHILS % (AUTO) 52.1 % (40-74); Platelet Count 235 bil/L (150-400)
[2016-10-31 10:53] LABS: Magnesium 2.2 mg/dL (1.6-2.6)
--- NOTE | 2016-10-31 12:05 | DRSVH ---
PROCEDURE: CT ABDOMEN AND PELVIS WITH CONTRAST ([id number]) INDICATIONS: ruq pain recent surgery, drain in place TECHNIQUE: After the administration of oral and intravenous contrast, 5 mm thick sections acquired from the diap hragms to the symphysis. 5 mm thick coronal and sagittal reformats were performed. For radiation do se reduction, the following was used: automated exposure control, adjustment of mA and/or kV accordi ng to patient size. COMPARISON: [facility], CT, CT ABCESS DRAIN PERITONEAL, 10/09/2016, 12:26. [facility], CT, CT ABD W CON, 10/08/2016, 15:04. [facility], CT, CT ABD PELVIS W CON, 10/03, 1:11. FINDINGS: Image quality: There is motion artifact limiting evaluation. ABDOMEN: Lung bases: There are minimal residual bilateral pleural effusions with associated compressive atelec tasis, decreased from the prior study. Heart size is normal. Solid organs: There is peripheral hypoattenuation along the posterior right hepatic lobe associated with a perihepatic thick walled collection consistent with a visual abscess. This appears progressiv malini decreased in size compared to the prior studies with a residual subhepatic fluid component measur ing approximately 3.7 x 1.8 x 4.8 cm in dimension. There has been interval removal of the surgical dr lexi from this collection. Spleen is at the upper limits of normal measuring up to 13 cm in dimension. The gallbladder appears within normal limits without calcified gallstones or wall thickening. Biliary system is non-dilated. Pancreas enhances normally. No adrenal nodules. There is new heterogeneous enhancement of the kidneys bilaterally. No hydronephrosis, perinephric fl uid collections, or perinephric stranding. Peritoneum and bowel: Stomach, small bowel, and colon loops are normal in caliber and wall thickness . There is a small residual collection in the right paracolic gutter inferior to the right hepatic l obe containing a pigtail drainage catheter with a minimal residual amount of fluid and a small amount of gas. Findings are consistent with an abscess and are markedly decreased from the prior studies. There is a small region of soft tissue thickening in the right paracolic gutter inferior to this col lection adjacent to the tip of the appendix. Nodes and vessels: No retroperitoneal or mesenteric adenopathy. Aorta and inferior vena cava are no rmal in caliber. Miscellaneous: No ventral hernias. PELVIS: Genitourinary: There is marked distention of the urinary bladder. Bladder wall thickness is normal. Miscellaneous: No inguinal hernias or adenopathy. Bones: No suspicious bony lesions. No vertebral body compression fractures. IMPRESSION: 1. New heterogeneous enhancement of the kidneys bilaterally. The findings are suspicious for pyelon ephritis the differential includes an acute nonspecific nephritis from renal failure or sequelae of i schemia. No hydronephrosis or perinephric abscess collections. 2. Interval removal of the surgical drain with a decreased but persistent small posterior perihepati c abscess collection. 3. Pigtail drainage catheter are redemonstrated within a collection in the right paracolic gutter wh ich demonstrates trace residual fluid with a small amount of gas, markedly decreased from the prior s tudy. 4. Indistinct soft tissue and small calcifications adjacent to the tip of the appendix in proximity to the paracolic gutter collection likely reflecting sequelae of ruptured appendicitis. 5. Marked distention of the urinary bladder suggesting urinary retention or bladder outlet obstructi on. 6. Decreased pleural effusions with minimal residual bilateral collections and mild compressive atel ectasis. Dictated by: Kiran De La Vega M.D. on 10/31/2016 at 11:48 Approved by: Kiran De La Vega M.D. on 10/31/2016 at 12:04
[2016-10-31 12:40] LABS: APPEARANCE,URINE HAZY (CLEAR,HAZY); COLOR,URINE STRAW (YELLOW); OCCULT BLOOD,URINE TRACE (NEGATIVE)
[2016-10-31 12:41] LABS: UROBILINOGEN,URINE NORMAL (NORMAL)
[2016-10-31] MEDS ORDERED: DOCU-41 PO (13:06)
[2016-10-31] MEDS ORDERED: METR500T PO (13:06)
[2016-10-31] MEDS ORDERED: POLY17PO6 PO (13:06)
[2016-10-31] MEDS ORDERED: CIPR-198 PO (13:06)
[2016-10-31 13:29] VITALS: BP 128/88; RESP 16; O2SAT 99
== END 2016-10-31 13:31 | disposition home or self-care (01) ==
LOC: SED 09:16
DX: R10.11 Right upper quadrant pain (principal); K59.00 Constipation, unspecified
CPT/HCPCS: 36415; 74177; 80053; 81000; 83605; 83690; 83735; 85025; 96361; 96374; 96375; 99285; J1885; J2405; J7030; Q9967